=== PATIENT | male | born 1930 | race Caucasian/White ===

== ENCOUNTER 2020-03-20 08:00 | Outpatient (CLI) | payer MEDICARE, OTHER ==
[2020-03-20 17:54] LABS: BASOPHILS % (AUTO) 0.3 %; EOSINOPHILS # (AUTO) 0.2 10^3/uL (0.0-0.7); EOSINOPHILS % (AUTO) 2.5 %; HGB - HEMOGLOBIN 14.4 g/dL (14.0-18.0); LYMPHOCYTES # (AUTO) 1.4 10^3/uL (1.5-3.5); LYMPHOCYTES % (AUTO) 24.1 %; MEAN CORPUSCULAR HEMOGLOBIN 31.9 pg (27.0-31.0); MEAN CORPUSCULAR HGB CONC 31.5 g/dL (32.0-36.0); MEAN CORPUSCULAR VOLUME 101.1 fL (80.0-94.0); MEAN PLATELET VOLUME 11.8 fL (7.4-11.4); MONOCYTES # (AUTO) 0.6 10^3/uL (0.0-1.0); MONOCYTES % (AUTO) 9.8 %; NEUTROPHILS # (AUTO) 3.7 10^3/uL (1.5-6.6); NEUTROPHILS % (AUTO) 63.1 %; PLT - PLATELET COUNT 146 10^3/uL (130-450); RED BLOOD COUNT 4.52 10^6/uL (4.70-6.10); RED CELL DISTRIBUTION WIDTH 15.4 % (12.0-15.0); WHITE BLOOD COUNT 5.9 x10^3/uL (4.8-10.8)
[2020-03-20 18:06] LABS: ALBUMIN/GLOBULIN RATIO 1.6 (1.0-2.2); CALCIUM 10.3 mg/dL (8.5-10.3); CREATININE 1.2 mg/dL (0.6-1.2); TOTAL PROTEIN 6.5 g/dL (6.7-8.2)
== END 2020-03-20 23:59 | disposition home or self-care (01) ==
LOC: LAB.N 08:00
PROVIDERS: ATTEND Family Medicine
DX: K59.00 Constipation, unspecified (principal); R10.9 Unspecified abdominal pain
CPT/HCPCS: 36415; 80053; 82150; 83690; 85025

== ENCOUNTER 2020-05-08 16:45 | Outpatient (CLI) | payer MEDICARE | END 2020-05-08 16:46 | disposition critical access hospital (66) | LOC: EMS 16:45 | PROVIDERS: ATTEND Surgery | DX: R47.81 Slurred speech (principal); R29.810 Facial weakness; R29.898 Other symptoms and signs involving the musculoskeletal system | CPT/HCPCS: A0425; A0427 ==

== ENCOUNTER 2020-05-08 17:00 | Emergency (ER) | payer MEDICARE, OTHER ==
--- NOTE | 2020-05-08 17:08 | ED Physician Documentation ---
PD HPI FOCAL NEURO - Stated complaint Stated Complaint: CODE STROKE - History obtained from History obtained from: EMS - Additional information Additional information: 89-year-old gentleman brought in by ambulance with strokelike symptoms starting at 1630 today with predominantly left-sided deficits. No injury. He does complain of headache reportedly. Prehospital blood sugar was in the 130s. It was reported he is on a blood thinner but were not sure which one. Is limited because of aphasia. Review of Systems Unable to obtain: AMS PD PAST MEDICAL HISTORY - Past Medical History Past Medical History: Yes Cardiovascular: Hypertension - Present Medications Home Medications: Ambulatory Orders Medication Instructions Recorded Confirmed Dicyclomine [Bentyl] 10 mg PO ONCE 05/08/20 05/08/20 Famotidine [Acid-Pep] 20 mg PO DAILY 05/08/20 05/08/20 Furosemide [Lasix] 20 mg PO DAILY 05/08/20 05/08/20 Furosemide [Lasix] 40 mg PO DAILY 05/08/20 05/08/20 Losartan [Cozaar] 50 mg PO DAILY 05/08/20 05/08/20 PARoxetine [Paxil] 10 mg PO DAILY 05/08/20 05/08/20 Potassium Chloride [Klor-Con] 20 meq PO DAILY 05/08/20 05/08/20 Simvastatin [Zocor] 20 mg PO DAILY 05/08/20 05/08/20 Tamsulosin [Flomax] 0.4 mg PO DAILY 05/08/20 05/08/20 allopurinoL [Zyloprim] 100 mg PO DAILY 05/08/20 05/08/20 clonazePAM [Clonazepam] 0.5 mg PO BID 05/08/20 05/08/20 - Allergies Allergies/Adverse Reactions: Allergies Allergy/AdvReac Type Severity Reaction Status Date / Time Penicillins Allergy Rash Verified 05/08/20 18:26 PD ED PE NORMAL - Vitals Vital signs reviewed: Yes - General General: Other (Is alert and follows simple commands. He mumbles yes to some questions but cannot really say anything else clearly.) - Neck Neck: Supple, no meningeal sign, No bony TTP - Cardiac Cardiac: RRR, No murmur - Respiratory Respiratory: No respiratory distress, Clear bilaterally - Abdomen Abdomen: Non tender - Back Back: No CVA TTP, No spinal TTP - Derm Derm: Normal color, Warm and dry - Extremities Extremities: No edema, No calf tenderness / cord NIHSS - Time Time: 17:04 - Level of Consciousness Level of consciousness: (0) Alert, Keenly responsive LOC Questions: (2) Answers neither correct LOC Commands: (0) Performs both correctly - Gaze Best Gaze: (1) Partial gaze palsy - Visual Visual: (0) No loss - Facial Palsy Facial Palsy: (2) Partial paralysis (left) - Motor Arms (both separate) Motor Arm (right): (0) No drift Motor Arm (left): (4) No movement - Motor Legs (both separate) Motor Leg (right): (0) No drift Motor Leg (left): (2) Some effort against gravity - Limb Ataxia Limb Ataxia: (0) Absent - Sensory Sensory: (2) Pywzzr-go-kjpqi loss - Best Language Best Language: (2) Severe aphasia - Dysarthria Dysarthria: (2) Severe dysarthria - Extinction and Inattention (formally neg Extinction and inattention: (2) Profound dominga-inattention or extinction to more than one modality - Total Score/Results Total Score/Result: 19 Results - Vitals Vitals: Vital Signs - 24 hr 05/08/20 05/08/20 05/08/20 17:30 17:35 17:40 Temperature Heart Rate 70 70 70 Respiratory 16 16 16 Rate Blood Pressure 143/80 H 143/83 H 149/84 H O2 Saturation 99 99 99 05/08/20 05/08/20 05/08/20 17:45 17:50 18:10 Temperature 36.3 C L Heart Rate 72 70 75 Respiratory 14 16 16 Rate Blood Pressure 158/79 H 159/68 H 145/74 H O2 Saturation 100 100 15 L 05/08/20 05/08/20 05/08/20 18:20 18:30 18:45 Temperature Heart Rate 70 78 79 Respiratory 16 16 14 Rate Blood Pressure 142/78 H 149/78 H 140/69 H O2 Saturation 100 99 100 05/08/20 19:00 Temperature Heart Rate 72 Respiratory 14 Rate Blood Pressure 137/80 H O2 Saturation 100 Oxygen O2 Source Room air - EKG (time done) 1742 Rate: Rate (enter#) (70) Rhythm: Paced Computer interpretation: Agree with computer - Labs Labs: Laboratory Tests 05/08/20 05/08/20 05/08/20 17:35 17:43 17:43 WBC 5.0 RBC 3.97 L Hgb 13.0 L Hct 40.2 L MCV 101.3 H MCH 32.7 H MCHC 32.3 RDW 14.4 Plt Count 119 L MPV 11.3 Neut # (Auto) 3.4 Lymph # (Auto) 1.0 L [place] # (Auto) 0.5 Eos # (Auto) 0.1 Baso # (Auto) 0.0 Absolute Nucleated RBC 0.00 Nucleated RBC % 0.0 PT 12.3 INR 1.1 Sodium Potassium Chloride Carbon Dioxide Anion Gap BUN Creatinine Estimated GFR (MDRD) Glucose Calcium Total Bilirubin AST ALT Alkaline Phosphatase Total Protein Albumin Globulin Albumin/Globulin Ratio Nasal Adenovirus (PCR) NOT DETECTED Nasal B. parapertussis DNA (PCR) NOT DETECTED Nasal Coronavir 229E PCR NOT DETECTED Nasal Coronavir HKU1 PCR NOT DETECTED Nasal Coronavir NL63 PCR NOT DETECTED Nasal Coronavir OC43 PCR NOT DETECTED Nasal Enterovir/Rhinovir PCR NOT DETECTED Nasal Influenza B PCR NOT DETECTED Nasal Influenza A PCR NOT DETECTED Nasal Parainfluen 1 PCR NOT DETECTED Nasal Parainfluen 2 PCR NOT DETECTED Nasal Parainfluen 3 PCR NOT DETECTED Nasal Parainfluen 4 PCR NOT DETECTED Nasal RSV (PCR) NOT DETECTED Nasal B.pertussis DNA PCR NOT DETECTED Nasal C.pneumoniae (PCR) NOT DETECTED Mitchell Human Metapneumo PCR NOT DETECTED Nasal M.pneumoniae (PCR) NOT DETECTED Nasal SARS-CoV-2 (PCR) NOT DETECTED 05/08/20 17:43 WBC RBC Hgb Hct MCV MCH MCHC RDW Plt Count MPV Neut # (Auto) Lymph # (Auto) [place] # (Auto) Eos # (Auto) Baso # (Auto) Absolute Nucleated RBC Nucleated RBC % PT INR Sodium 136 Potassium 4.0 Chloride 100 L Carbon Dioxide 22 Anion Gap 14.0 H BUN 30 H Creatinine 1.3 H Estimated GFR (MDRD) 52 L Glucose 104 H Calcium 9.4 Total Bilirubin 0.6 AST 23 ALT 16 Alkaline Phosphatase 70 Total Protein 6.1 L Albumin 3.6 Globulin 2.5 Albumin/Globulin Ratio 1.4 Nasal Adenovirus (PCR) Nasal B. parapertussis DNA (PCR) Nasal Coronavir 229E PCR Nasal Coronavir HKU1 PCR Nasal Coronavir NL63 PCR Nasal Coronavir OC43 PCR Nasal Enterovir/Rhinovir PCR Nasal Influenza B PCR Nasal Influenza A PCR Nasal Parainfluen 1 PCR Nasal Parainfluen 2 PCR Nasal Parainfluen 3 PCR Nasal Parainfluen 4 PCR Nasal RSV (PCR) Nasal B.pertussis DNA PCR Nasal C.pneumoniae (PCR) Mitchell Human Metapneumo PCR Nasal M.pneumoniae (PCR) Nasal SARS-CoV-2 (PCR) - Rads (name of study) CT Head Radiology: EMP read contemporaneously (NAD, No ICH) CTA Head Radiology: EMP read contemporaneously (No significant acute intracranial abnormality. Dense calcifications of both internal carotids) CTA Neck Radiology: EMP read contemporaneously (Inital poor bolus timing, atherosclerotic irregularity and calcification of both bifurcations with 70 to 80% narrowing of the right proximal internal carotid and 60 to 70% of the left proximal internal carotid. There are also stenoses of the vertebral origins, subtotal on the right and at least 50%) PD MEDICAL DECISION MAKING - ED course ED course: His son Rommel showed me his med list. There is no blood thinner on there. 89-year-old gentleman with what seems like a devastating right MCA territory stroke, very early in the time course. He was evaluated by telestroke neurology, Dr. Jordan and we both agree that he is an appropriate TPA candidate without obvious contraindications. The patient's son Rommel was consented for TPA after discussion of the risks and benefits, risks including , intracranial hemorrhage and bleeding. He signed consent for TPA. Bolus of TPA went in at 1753. Subsequently was accepted to [facility] ICU by Dr. Beth Bose at 6:46 PM and cobras were completed. On serial exams after the administration of TPA he had significant improvement of his left-sided deficits. - Critical Care Time(min): 45 Time Includes: Direct patient care, Review records, Reassess patient, Document care, Coordinate care, Medical consult, Family consult for tx dec Data interpretation: Labs, Pulse ox Procedures included in critical care time: Peripheral IV Procedures excluded from critical care time: EKG Departure - Departure Disposition: 02 Transfer Acute Care Hosp Clinical Impression: Cerebrovascular accident (CVA) Condition: Critical Discharge Date/Time: 05/08/20 19:27
[2020-05-08] MEDS ORDERED: WATER FOR INJECTION STERILE IV STA ×2 (17:29→17:33)
[2020-05-08] MEDS ORDERED: ALTEPLASE IV STA ×2 (17:29→17:33)
[2020-05-08] MEDS ORDERED: ALTEPLASE 7.6 MG in WATER FOR INJECTION,STERILE 7.6 ML IV STA (17:34)
--- NOTE | 2020-05-08 17:41 | CT Report ---
PROCEDURE: Head W/O Stroke Protocol INDICATIONS: stroke like symptoms TECHNIQUE: Noncontrast 4.5 mm thick angled axial sections acquired from the foramen magnum to the vertex, with c oronal reformats. For radiation dose reduction, the following was used: automated exposure control, adjustment of mA and/or kV according to patient size. COMPARISON: FINDINGS: Image quality: Motion artifact is noted. CSF spaces: Basal cisterns are patent. Mild low-density subdural hygromas can be seen. Ventricles a re normal in size and shape. Brain: No midline shift. No intracranial masses or hemorrhage. Brain parenchymal volume loss is see n. Chronic small vessel ischemic changes are seen. Horner-white matter interface is normal. Skull and face: Calvarium and visualized facial bones are intact, without suspicious lesions. Sinuses: Visualized sinuses and mastoids are clear. IMPRESSION: No intracranial hemorrhage is seen. No significant intracranial abnormality is seen. Age-appropriate brain parenchymal volume loss and chronic small vessel ischemic change can be seen. Mild low-density, chronic appearing bilateral subdural hygromas can be seen. Note: Case discussed by telephone with Dr. Johnson at 4:38 PM [place] time on 05/08/2020. This study fulfills neurological imaging criteria for inclusion or exclusion of acute stroke therapie s based on available published neurological imaging guidelines. Reviewed by: Armani Parnell MD on 05/08/2020 4:40 PM [place] Approved by: Armani Parnell MD on 05/08/2020 4:40 PM [place] Station ID: [id number]
[2020-05-08 18:05] LABS: BASOPHILS % (AUTO) 0.4 %; EOSINOPHILS # (AUTO) 0.1 10^3/uL (0.0-0.7); EOSINOPHILS % (AUTO) 1.4 %; LYMPHOCYTES % (AUTO) 19.3 %; MEAN CORPUSCULAR HEMOGLOBIN 32.7 pg (27.0-31.0); MEAN CORPUSCULAR HGB CONC 32.3 g/dL (32.0-36.0); MEAN CORPUSCULAR VOLUME 101.3 fL (80.0-94.0); MEAN PLATELET VOLUME 11.3 fL (7.4-11.4); MONOCYTES # (AUTO) 0.5 10^3/uL (0.0-1.0); MONOCYTES % (AUTO) 10.6 %; NEUTROPHILS # (AUTO) 3.4 10^3/uL (1.5-6.6); NEUTROPHILS % (AUTO) 67.9 %; PLT - PLATELET COUNT 119 10^3/uL (130-450); RED BLOOD COUNT 3.97 10^6/uL (4.70-6.10); RED CELL DISTRIBUTION WIDTH 14.4 % (12.0-15.0)
[2020-05-08] MEDS ORDERED: IOVERSOL 320 100 ML VIAL IVP ONE (18:07)
[2020-05-08 18:11] LABS: INR 1.1 (0.8-1.2); PT - PROTHROMBIN TIME 12.3 secs (9.9-12.6)
--- NOTE | 2020-05-08 18:11 | CT Report ---
PROCEDURE: ANGIO HEAD W/WO INDICATIONS: L side defecits CONTRAST: IV CONTRAST: Optiray 320 ml: 80 PO CONTRAST: *NO PO CONTRAST TECHNIQUE: After the administration of intravenous contrast, 1 mm thick sections acquired through the [place]. Postcontrast 4.5 mm thick sections then re-acquired from the foramen magnum to the vertex. 3-dimensional oijpcdo-qkoaferjn-fcyzbxqvme (MIP) and/or volume rendering reformats were acquired of the central intracranial vasculature. For radiation dose reduction, the following was used: automat ed exposure control, adjustment of mA and/or kV according to patient size. COMPARISON: Correlation is made with the accompanying noncontrast head CT as well as the accompanyin g CT neck angiogram, 05/08/2020. FINDINGS: Image quality: Excellent. Anterior circulation: Intracranial internal carotid arteries demonstrate generalized atherosclerotic calcification and irregularity, with approximately 50% narrowing on each side. The flow within the p aired anterior cerebral arteries is normal and symmetric. The flow within the middle cerebral arteri es is normal and symmetric. The anterior communicating artery is seen. No aneurysms are seen. Posterior circulation: Visualized portions of the vertebral arteries demonstrate normal caliber, and join to form a normal appearing basilar artery. Flow within the posterior cerebral arteries is norm al and symmetric. No aneurysms are seen. CSF spaces: Ventricles are normal in size and shape. Basal cisterns are patent. Mild, chronic appe aring subdural hygromas can be seen. Brain: No midline shift. No intracranial bleeds or masses. Brain parenchymal volume loss and chroni c small vessel ischemic changes are seen. Horner-white matter interface appears intact. Skull and face: Calvarium and facial bones appear intact, without suspicious lesions. Sinuses: Visualized sinuses and mastoids are clear. IMPRESSION: No significant intracranial arterial abnormality is seen. Dense atherosclerotic calcification and irregularity can be seen involving the intracranial internal carotid arteries, with approximately 50% narrowing seen on each side. No masses or abnormal enhancement can be seen. Reviewed by: Armani Parnell MD on 05/08/2020 5:10 PM [place] Approved by: Armani Parnell MD on 05/08/2020 5:10 PM [facility] Station ID: [id number]
[2020-05-08 18:16] LABS: ALBUMIN 3.6 g/dL (3.2-5.5); ALBUMIN/GLOBULIN RATIO 1.4 (1.0-2.2); BILIRUBIN,TOTAL 0.6 mg/dL (0.2-1.0); CALCIUM 9.4 mg/dL (8.5-10.3); CREATININE 1.3 mg/dL (0.6-1.2); TOTAL PROTEIN 6.1 g/dL (6.7-8.2)
--- NOTE | 2020-05-08 18:18 | CT Report ---
PROCEDURE: ANGIO NECK W INDICATIONS: L side defecits CONTRAST: IV CONTRAST: Optiray 320 ml: 80 PO CONTRAST: *NO PO CONTRAST TECHNIQUE: Because of a poor initial bolus, this patient was injected a second time. After the administration of intravenous contrast, 1.5 mm axial sections acquired from the aortic arch to the [place]. Coronal 3-D maximum intensity projection (MIP) and/or volume rendering ref ormats were then performed. For radiation dose reduction, the following was used: automated exposur e control, adjustment of mA and/or kV according to patient size. COMPARISON: Correlation is made with the accompanying head CT and CT angiogram, 05/08/2020 FINDINGS: Image quality: Excellent. Carotid system: The great vessels demonstrate a conventional anatomy as they arise from the aortic a rch. The origins of the common carotid arteries appear patent. The common carotid arteries demonstr ate normal calibers and courses. The bifurcation regions demonstrate atherosclerotic irregularity an d calcification. There is 70-80% narrowing seen involving the right proximal internal carotid artery. There is 60-70% narrowing seen involving the left proximal internal carotid artery. The more distal internal carotid arteries demonstrate normal course and caliber. Posterior circulation: The origin of the vertebral right vertebral artery demonstrates dense calcifi cation and subtotal narrowing. There is at least 50% narrowing seen involving the origin of the left vertebral artery origin. The right vertebral artery demonstrates areas at least 90% narrowing at the C3-C4 level, as on series 25 image 56 and on series 23 image 156. The left vertebral artery is domin ant to the right. No significant left distal vertebral artery narrowing can be seen. They join to for m a normal appearing basilar artery. Soft tissues: Visualized neck soft tissues demonstrate no suspicious abnormalities. The thyroid gla nd is normal in size. Bones: No suspicious bony lesions. Visualized cervical spine appears normally aligned. Relatively prominent cervical spine degenerative changes are seen. IMPRESSION: Atherosclerotic irregularity and calcification can be seen involving the carotid bifurcations, with 7 0-80% narrowing seen involving the right proximal internal carotid artery and 60-70% narrowing of the left proximal internal carotid artery. There are stenoses seen of the vertebral artery origins, with a subtotal stenosis seen on the right a nd at least 50% narrowing seen on the left. The right vertebral artery demonstrates prominent narrowing at the C3-C4 level, at least 90%. Relatively prominent cervical spine degenerative changes are noted. (Secondary to a poor initial bolus, this patient needed to be injected a second time.) The estimate of stenosis included in the report of the imaging study was calculated using the NASCET method Reviewed by: Armani Parnell MD on 05/08/2020 5:17 PM [facility] Approved by: Armani Parnell MD on 05/08/2020 5:17 PM [facility] Station ID: [id number]
[2020-05-08 19:04] VITALS: BP 137/80
[2020-05-08 19:32] LABS: C. PNEUMONIAE- RESP PCR PANEL NOT DETECTED
== END 2020-05-08 19:27 | disposition short-term general hospital (02) ==
LOC: EDSEX → EDUNIT# → ED 17:00
DX: I63.9 Cerebral infarction, unspecified (principal); R47.01 Aphasia; R40.4 Transient alteration of awareness; I10 Essential (primary) hypertension; R29.719 NIHSS score 19; Z20.822 Contact with and (suspected) exposure to COVID-19
CPT/HCPCS: 36415; 37195; 70450; 70496; 70498; 80053; 85025; 85610; 87631; 93005; 96365; 99285; 99291; J2997; Q9967; 0202U

== ENCOUNTER 2020-08-30 09:34 | Outpatient (CLI) | payer MEDICARE | END 2020-08-30 09:35 | disposition critical access hospital (66) | LOC: EMS 09:34 | DX: R06.2 Wheezing (principal); R41.0 Disorientation, unspecified | CPT/HCPCS: A0425; A0427 ==

== ENCOUNTER 2020-08-30 09:50 | Emergency (ER) | payer MEDICARE ==
[2020-08-30 10:11] VITALS: BP 173/88
--- NOTE | 2020-08-30 10:31 | XRAY Report ---
PROCEDURE: Chest 1 View X-Ray INDICATIONS: wheezing TECHNIQUE: One view of the chest was acquired. COMPARISON: None FINDINGS: Surgical changes and devices: Left chest wall cardiac device lead is seen in the region of right vent ricle. Median sternotomy wires are seen. Lungs and pleura: There is mild pulmonary vascular congestion. No significant pleural effusion. No pn eumothorax. Increased bronchovascular markings in bilateral hilar region are seen with mild bronchial wall thickening. Mediastinum: Mildly tortuous thoracic aorta with aortic arch calcifications are seen. Heart size is e nlarged. Bones and chest wall: No suspicious bony lesions. Overlying soft tissues appear unremarkable. IMPRESSION: Suggestion of mild reactive airway disease. No definite focal infiltrate. No pleural effusion or thor ax. Reviewed by: Ezequiel Biswas MD on 08/30/2020 10:30 AM PDT Approved by: Ezequiel Biswas MD on 08/30/2020 10:30 AM PDT Station ID: [id number]
--- NOTE | 2020-08-30 11:04 | ED Physician Documentation ---
History of Present Illness - Stated complaint Stated Complaint: SOA - Chief complaint Chief Complaint: General - History obtained from History obtained from: Family (son) - Additonal information Additional information: 89-year-old man with history of CVA 2 months ago, A. fib on Coumadin, CHF, DNR/DNI with comfort measures only, primary Dr. García, presents with progressively worsening confusion and increasingly frequent falls since January 2020 when his . Patient has had at least 3 falls this week, the most recent occurring today in front of his son's girlfriend who was concerned enough to call EMS. Review of Systems Unable to obtain: Dementia PD PAST MEDICAL HISTORY - Past Medical History Past Medical History: Yes Cardiovascular: Congestive heart failure, Hypertension, Atrial fibrillation Neuro: CVA : Other Musculoskeletal: Gout Derm: Other Other Past Medical History: prostate CA, skin cancer - Past Surgical History Past Surgical History: Yes General: Cholecystectomy Cardiovascular: Pacemaker - Present Medications Home Medications: Ambulatory Orders Medication Instructions Recorded Confirmed Dicyclomine [Bentyl] 10 mg PO ONCE 05/08/20 05/08/20 Famotidine [Acid-Pep] 40 mg PO DAILY 05/08/20 05/08/20 Furosemide [Lasix] 40 mg PO DAILY 05/08/20 05/08/20 PARoxetine [Paxil] 10 mg PO BID 05/08/20 05/08/20 Tamsulosin [Flomax] 0.4 mg PO DAILY 05/08/20 05/08/20 allopurinoL [Zyloprim] 100 mg PO DAILY 05/08/20 05/08/20 clonazePAM [Clonazepam] 0.5 mg PO BID 05/08/20 05/08/20 Atorvastatin Calcium [Lipitor] 80 mg DAILY 08/30/20 08/30/20 Azithromycin [Zithromax Tri-Miguel] 500 mg PO QDAC 5 Days #6 tablet 08/30/20 Metoprolol Tartrate [Lopressor] 12.5 mg PO DAILY 08/30/20 08/30/20 Warfarin [Coumadin] 1.5 mg DAILY 08/30/20 08/30/20 - Allergies Allergies/Adverse Reactions: Allergies Allergy/AdvReac Type Severity Reaction Status Date / Time Penicillins Allergy Rash Verified 08/30/20 10:09 - Social History Does the pt smoke?: No Smoking Status: Never smoker Does the pt drink ETOH?: Yes Does the pt have substance abuse?: No PD ED PE NORMAL - Vitals Vital signs reviewed: Yes - General General: No acute distress, Other (alert and at baseline) - HEENT HEENT: Atraumatic, PERRL, EOMI - Neck Neck: Supple, no meningeal sign - Cardiac Cardiac: Other (Regular rate, irregular rhythm) - Respiratory Respiratory: No respiratory distress, Clear bilaterally - Abdomen Abdomen: Non tender, Non distended - Male Male : Deferred - Rectal Rectal: Deferred - Back Back: No CVA TTP - Derm Derm: Normal color - Extremities Extremities: No deformity - Neuro Neuro: Other (alert at baseline) - Psych Psych: Other (dementia at baseline) Results - Vitals Vitals: Vital Signs - 24 hr 08/30/20 09:51 Temperature 36.2 C L Heart Rate 70 Respiratory 22 Rate Blood Pressure 173/88 H O2 Saturation 100 Oxygen O2 Source Room air PD MEDICAL DECISION MAKING - ED course ED course: 89-year-old man, DNR/DNI comfort measures only, presents with progressive increased frequency of falls and worsening dementia. Past several months. Discussed goals of care with the patient's son and confirmed his care should be oriented towards comfort therefore I am holding off on bloodwork/further interventions today. He is interested in enrolling him in [facility]. They plan to f/u outpatient. return precautions discussed. Departure - Departure Disposition: 01 Home, Self Care Clinical Impression: Pneumonia Condition: Stable Instructions: ED Pneumonia Adult Prescriptions: Azithromycin [Zithromax Tri-Miguel] 500 mg PO QDAC 5 Days #6 tablet Comments: Your father was seen in the emergency department for increasing frequency of falls and dementia. He also has been coughing more than usual and short of breath. the chest xray didn't show obvious pneumonia, but given his clinical appearance I am prescribing 5 days of antibiotics. Please follow-up with your primary doctor this week for possible home health versus [facility] placement. Return to the emergency department if he experiences any new or worsening symptoms or if you have other concerns. Discharge Date/Time: 08/30/20 11:30
== END 2020-08-30 11:30 | disposition home or self-care (01) ==
LOC: EDUNIT# → ED 09:50
DX: J18.9 Pneumonia, unspecified organism (principal); F03.90 Unspecified dementia, unspecified severity, without behavioral disturbance, psychotic disturbance, mood disturbance, and anxiety; R29.6 Repeated falls; I11.0 Hypertensive heart disease with heart failure; I50.9 Heart failure, unspecified; I48.91 Unspecified atrial fibrillation; Z79.01 Long term (current) use of anticoagulants; Z86.73 Personal history of transient ischemic attack (TIA), and cerebral infarction without residual deficits; Z95.0 Presence of cardiac pacemaker; Z66 Do not resuscitate
CPT/HCPCS: 93005; 99281; 99283

== ENCOUNTER 2020-09-30 10:25 | Outpatient (CLI) | payer MEDICARE | END 2020-09-30 10:26 | disposition critical access hospital (66) | LOC: EMS 10:25 | DX: S41.112A Laceration without foreign body of left upper arm, initial encounter (principal); W19.XXXA Unspecified fall, initial encounter; Y92.002 Bathroom of unspecified non-institutional (private) residence as the place of occurrence of the external cause | CPT/HCPCS: A0425; A0429 ==

== ENCOUNTER 2020-09-30 10:46 | Emergency (ER) | payer MEDICARE ==
--- NOTE | 2020-09-30 11:20 | ED Physician Documentation ---
PD HPI Fall - Stated complaint Stated Complaint: FALL - Chief complaint Chief Complaint: Trauma Ext - History obtained from History obtained from: Patient, Family - History of Present Illness Mechanism of injury: Tripped (he says his slippers slid on rug/floor and he fell with his walker. Lac to left forearm. Does not believe he struck head. No headache. But is on coumadin for prior CVA. has been having increasing difficulty with balance and needs assistance. Family trying to be there all the time, but limited (work)), Lost balance Where injury occurred: Home Timing - onset: Today, Other (he also fell 3 days ago and struck left anterolateral chest, and that is still very painful.) Injury(ies) location: Chest, Left Uppper Extremity (skin peel/laceration left forearm.), Left Lower Extremity (pain in left posterior hip/pelvis area the past 3 days.) Associated symptoms: No: LOC, AMS, Weakness, Paresthesias Symptoms improve with: Rest Worsens with: Movement Contributing factors: Anticoagulated. No: Intoxicated Similar symptoms before: No diagnosis (increased balance problems and general weakness over the past few months. Family having difficulty being there continually (they say the fall 3 days ago was during night when patient got up and did not call them for help as he is supposed to do).) Review of Systems Constitutional: denies: Fever, Chills Nose: denies: Rhinorrhea / runny nose, Congestion Throat: denies: Sore throat Cardiac: reports: Chest pain / pressure Respiratory: denies: Cough GI: denies: Abdominal Pain, Nausea, Vomiting Neurologic: reports: Generalized weakness. denies: Focal weakness, Numbness, Altered mental status, Headache PD PAST MEDICAL HISTORY - Past Medical History Cardiovascular: Congestive heart failure, Hypertension, Atrial fibrillation Neuro: CVA : Other Musculoskeletal: Gout Derm: Other - Past Surgical History Past Surgical History: Yes General: Cholecystectomy Cardiovascular: Pacemaker - Present Medications Home Medications: Ambulatory Orders Medication Instructions Recorded Confirmed Dicyclomine [Bentyl] 10 mg PO ONCE 05/08/20 09/30/20 Famotidine [Acid-Pep] 40 mg PO DAILY 05/08/20 09/30/20 Furosemide [Lasix] 40 mg PO DAILY 05/08/20 09/30/20 PARoxetine [Paxil] 10 mg PO BID 05/08/20 09/30/20 Tamsulosin [Flomax] 0.4 mg PO DAILY 05/08/20 09/30/20 allopurinoL [Zyloprim] 100 mg PO DAILY 05/08/20 09/30/20 clonazePAM [Clonazepam] 0.5 mg PO BID 05/08/20 09/30/20 Atorvastatin Calcium [Lipitor] 80 mg DAILY 08/30/20 09/30/20 Metoprolol Tartrate [Lopressor] 12.5 mg PO DAILY 08/30/20 09/30/20 Warfarin [Coumadin] 1.5 mg PO DAILY 08/30/20 09/30/20 - Allergies Allergies/Adverse Reactions: Allergies Allergy/AdvReac Type Severity Reaction Status Date / Time Penicillins Allergy Rash Verified 09/30/20 11:31 - Social History Does the pt smoke?: No Smoking Status: Never smoker Does the pt drink ETOH?: Yes Does the pt have substance abuse?: No PD ED PE NORMAL - Vitals Vital signs reviewed: Yes - General General: Alert and oriented X 3, No acute distress, Well developed/nourished - HEENT HEENT: Atraumatic - Neck Neck: Supple, no meningeal sign, No bony TTP, No adenopathy - Cardiac Cardiac: RRR, No murmur - Respiratory Respiratory: Clear bilaterally, Other (left anterolateral chest wall tenderness without crepitance nor deformity. ) - Abdomen Abdomen: Soft, Non tender - Derm Derm: Normal color, Warm and dry - Extremities Extremities: Other (left forearm with partial thickness skin peel. Some loose skin. FROM of the arm and elbow without bony tenderness. ) - Neuro Neuro: Alert and oriented X 3, No motor deficit, No sensory deficit, Normal speech Results - Vitals Vitals: Vital Signs - 24 hr 09/30/20 09/30/20 09/30/20 10:46 11:00 11:30 Temperature 97.9 C H Heart Rate 71 74 74 Respiratory 16 16 18 Rate Blood Pressure 154/78 H 160/81 H 165/83 H O2 Saturation 96 95 96 09/30/20 12:00 Temperature Heart Rate 74 Respiratory 19 Rate Blood Pressure 160/83 H O2 Saturation Oxygen O2 Source Room air - Labs Labs: Laboratory Tests 09/30/20 09/30/20 09/30/20 12:15 12:15 12:31 WBC 2.0 L* RBC 3.95 L Hgb 12.5 L Hct 39.2 L MCV 99.2 H MCH 31.6 H MCHC 31.9 L RDW 15.1 H Plt Count 78 L MPV 11.9 H Neut # (Auto) Not Reportable Lymph # (Auto) Not Reportable [place]ley # (Auto) Not Reportable Eos # (Auto) Not Reportable Baso # (Auto) Not Reportable Absolute Nucleated RBC Not Reportable Total Counted 100 Band Neuts % (Manual) 2 Abnorm Lymph % (Manual) 0 Nucleated RBC % Not Reportable Neutrophils # (Manual) 1.2 L Lymphocytes # (Manual) 0.4 L Monocytes # (Manual) 0.3 Eosinophils # (Manual) 0.0 Basophils # (Manual) 0.1 Differential Comment MANUAL DIFFERENTIAL WBC Morphology NORMAL APPEARANCE Platelet Estimate DECREASED (<130,000) Platelet Morphology NORMAL APPEARANCE RBC Morph Micro Appear NORMAL APPEARANCE PT 32.7 H INR 3.1 H Sodium 139 Potassium 3.2 L Chloride 98 L Carbon Dioxide 29 Anion Gap 12.0 BUN 32 H Creatinine 1.3 H Estimated GFR (MDRD) 52 L Glucose 86 Calcium 8.6 - Rads (name of study) head CT Radiology: Prelim report reviewed (no ICH), See rad report chest CT Radiology: Prelim report reviewed (no rib fractures; lungs okay.), See rad report abd/pelvic CT Radiology: Prelim report reviewed (no pelvic fractures), See rad report PD MEDICAL DECISION MAKING - ED course Complexity details: reviewed results, re-evaluated patient (he does not have any fractures. Has had balance problems with falls and needs more continued assistance than family can do due to work/etc. Pt being placed in [facility] tomorrow (previously arranged). SW talked with [facility] to see if could go today, but they are not ready for him.), considered differential, d/w patient ED course: Family requests patient here in hospital until tomorrow when going to [facility]. No admission criteris so would be in ER. Patient did not want to stay here though and so family bringing him home and will try to be awake/available overnight near his room, so can help him when he gets up. Forearm loos skin trimmed. Bandagin by nursing. Departure - Departure Disposition: 01 Home, Self Care Clinical Impression: Balance problem, Anticoagulant long-term use, Forearm laceration Rib contusion Qualifiers: Encounter type: initial encounter Laterality: left Qualified Code(s): S20.212A - Contusion of left front wall of thorax, initial encounter Pelvic contusion Qualifiers: Encounter type: initial encounter Qualified Code(s): S30.0XXA - Contusion of lower back and pelvis, initial encounter Condition: Stable Record reviewed to determine appropriate education?: Yes Instructions: ED Contusion Chest Wall, ED Avulsion Dermal Follow-Up: Radha Galeas ARNP [Credentialed Staff Provider] - Comments: Clean the forearm laceration once or twice daily with soap and water and apply some ointment. Otherwise keep it dressed and protected. The skin will heal and slowly over a couple of weeks. There are no fractures seen on the chest or pelvic CT scans. You will still be sore in those areas from the fall. Use Tylenol 500 mg 4 times a day for pain regularly for the next several days to week and then as needed. Your Coumadin level is 3.1 so I would hold tonight's dose and then continue usual dosing. Follow-up with your primary care regarding further medication changes. Consideration would be whether Coumadin is still appropriate given some decrease in his platelet count. The risk of bleeding increases with this and in the context of falling as well. At this point continue with it but discussed with your primary care. CT scan of the head does not show any signs of bleeding. To [facility] tomorrow as planned. Discharge Date/Time: 09/30/20 14:37
[2020-09-30] MEDS ORDERED: ACETAMINOPHEN 325 MG TABLET PO STA (12:00)
[2020-09-30 12:27] LABS: HCT - HEMATOCRIT 39.2 % (42.0-52.0); HGB - HEMOGLOBIN 12.5 g/dL (14.0-18.0); MEAN CORPUSCULAR HEMOGLOBIN 31.6 pg (27.0-31.0); MEAN CORPUSCULAR HGB CONC 31.9 g/dL (32.0-36.0); MEAN CORPUSCULAR VOLUME 99.2 fL (80.0-94.0); MEAN PLATELET VOLUME 11.9 fL (7.4-11.4); MONOCYTES % (AUTO) 10.5 %; PLT - PLATELET COUNT 78 10^3/uL (130-450); RED BLOOD COUNT 3.95 10^6/uL (4.70-6.10); RED CELL DISTRIBUTION WIDTH 15.1 % (12.0-15.0)
[2020-09-30 12:30] LABS: ABNORMAL LYMPHS % (MANUAL) 0 %
[2020-09-30 12:32] LABS: CALCIUM 8.6 mg/dL (8.5-10.3); CREATININE 1.3 mg/dL (0.6-1.2); POTASSIUM 3.2 mmol/L (3.5-5.0)
[2020-09-30 12:41] LABS: INR 3.1 (0.8-1.2); PT - PROTHROMBIN TIME 32.7 secs (9.9-12.6)
[2020-09-30 12:49] LABS: BAND NEUTROPHILS % (MANUAL) 2 %; BASOPHILS # (MANUAL) 0.1 10^3/uL (0-0.1); BASOPHILS % (MANUAL) 3 %; LYMPHOCYTES # (MANUAL) 0.4 10^3/uL (1.5-3.5); LYMPHOCYTES % (MANUAL) 20 %; MONOCYTES # (MANUAL) 0.3 10^3/uL (0.0-1.0); NEUTROPHILS # (MANUAL) 1.2 10^3/uL (1.5-6.6)
[2020-09-30 12:50] LABS: DIFFERENTIAL COMMENT MANUAL DIFFERENTIAL; PLATELET ESTIMATE, MANUAL DECREASED (<130,000) (NORMAL); PLATELET MORPHOLOGY NORMAL APPEARANCE (NORMAL); RBC MORPHOLOGY (MULTIPLE) NORMAL APPEARANCE (NORMAL); WBC MORPHOLOGY (MULTIPLE) NORMAL APPEARANCE (NORMAL)
--- NOTE | 2020-09-30 12:58 | CT Report ---
PROCEDURE: HEAD WO INDICATIONS: fall, on coumadin; no head pain TECHNIQUE: Noncontrast 4.5 mm thick angled axial sections acquired from the foramen magnum to the vertex. For r adiation dose reduction, the following was used: automated exposure control, adjustment of mA and/or kV according to patient size. COMPARISON: 05/08/2020. FINDINGS: Image quality: Excellent. CSF spaces: Basal cisterns are patent. Small bifrontal low-density subdural hygromas stable compared to prior exam. The ventricles are symmetric in size and shape. Brain: No intracranial bleeds or masses. There is cerebral volume loss for age, with resultant vent ricular and sulcal prominence. There are periventricular and deep white matter chronic small vessel ischemic changes. There is intracranial internal carotid artery and vertebral artery atherosclerosis . Skull and face: Calvarium and visualized facial bones appear intact, without suspicious lesions. Sma ll left occipital scalp contusion. Sinuses: Visualized sinuses and mastoids are clear. IMPRESSION: 1. No acute intracranial disease process. 2. No intracranial hemorrhage. 3. Small chronic bifrontal subdural hygromas stable compared to the prior exam. Reviewed by: Cailin Oshea MD, PhD on 09/30/2020 12:57 PM PDT Approved by: Cailin Oshea MD, PhD on 09/30/2020 12:57 PM PDT Station ID: [id number]
--- NOTE | 2020-09-30 13:10 | CT Report ---
PROCEDURE: Abdomen/Pelvis WO INDICATIONS: pains both hips after fall TECHNIQUE: Noncontrast 5 mm thick sections acquired from the diaphragms to the symphysis. 5 mm coronal and sagi ttal reformats were then performed. For radiation dose reduction, the following was used: automated exposure control, adjustment of mA and/or kV according to patient size. COMPARISON: None. FINDINGS: Image quality: Limited quality visualization due to absence of both oral and intravenous contrast. ABDOMEN: Lung bases: Lung bases are clear except for atelectasis associated with bilateral pleural effusions, right greater than left. There is a calcified granuloma at the right middle lobe near the junction o f the medial and lateral segments.. Heart size is normal. Solid organs: Liver and spleen are normal in size, and the spleen contains several scattered punctat e granulomatous calcifications.. Gallbladder is not well seen Pancreas is normal in contours. No a drenal nodules. Kidneys are normal in size, without hydronephrosis or nephrolithiasis. Renal vascul ar calcifications are present there is a dominant right exophytic renal cyst measuring up to 8.2 cm. A smaller posterior exophytic right cortical cyst measures 3.4 cm. Peritoneum and bowel: Unenhanced bowel loops demonstrate normal wall thickness and caliber. No free fluid or air. Nodes and vessels: No retroperitoneal or mesenteric adenopathy by size criteria. Aorta is at or jus t above the upper limits of normal measuring up to 3.1 cm in maximal axial dimension at the upper abd ominal aorta and 2.9 cm at the middle and lower thirds. And inferior vena cava are normal in caliber. Miscellaneous: No ventral hernias. PELVIS: Genitourinary: Bladder wall thickness is normal. Miscellaneous: No inguinal hernias or adenopathy. Bones: No suspicious bony lesions. No vertebral body compression fractures. IMPRESSION: Quality of visualization of the solid and hollow organs is somewhat limited by absence of both oral a nd intravenous contrast. No definite trauma found. Bilateral pleural effusions are noted, right greater than left, with secondary adjacent atelectasis a t each lower lung posteriorly. No pneumonia found. Note is made of a calcified granuloma within the mid point of the right middle lobe, and also small p unctate granulomatous calcifications are seen at the spleen. No definite active granulomatous disease is found. This study is optimized for trauma evaluation of the abdomen and pelvis but the pelvis and hips are i ncluded in the [id number]. No definite fracture found nor is there evidence of dislocation. No com pression fracture seen. Reviewed by: Rommel Reyes MD on 09/30/2020 1:08 PM PDT Approved by: Rommel Reyes MD on 09/30/2020 1:08 PM PDT Station ID: [id number]
--- NOTE | 2020-09-30 13:22 | CT Report ---
PROCEDURE: CHEST WO INDICATIONS: left anterolat ribs pain after fall TECHNIQUE: Noncontrast 5 mm thick sections acquired from the pulmonary apices to the posterior costophrenic angl es. 7 mm thick coronal and sagittal MIP reformats were then acquired. For radiation dose reduction, the following was used: automated exposure control, adjustment of mA and/or kV according to patient size. COMPARISON: CT abdomen/pelvis same day. Prior chest plain film 08/30/2020. FINDINGS: Image quality: Excellent. Lungs and pleura: No acute air space opacities but there is atelectasis associated with bilateral pl eural effusions, right greater than left. The density of the effusions are not elevated, and therefor e the appearance is considered less likely to be a sequela of trauma than chronic CHF. Pacemaking alexander ds partially visualized.. No pneumothorax. Central and peripheral airways are patent and normal in caliber. Mediastinum: Heart size is normal. No pericardial effusion. No mediastinal adenopathy by size crit eria. Thoracic aorta and central pulmonary arteries are normal in size. Esophagus is normal in sita shubham. No hiatal hernia. Bones and chest wall: No suspicious bony lesions. No vertebral body compression fractures. No axil hao or supraclavicular adenopathy by size criteria. The thyroid is normal in size and there are no incidental findings. Abdomen: Visualized upper abdominal solid organs and bowel loops appear normal in the absence of con trast. IMPRESSION: No trauma found. CT scanning allows more accurate detection of rib fractures, but nuclear medicine elizabeth ne scan can allow detection of rib fractures not visible by CT scanning and could be obtained if clin ically indicated. Presumed cardiogenic slight pulmonary edema and pleural effusions, right greater than left. Reviewed by: Rommel Reyes MD on 09/30/2020 1:21 PM PDT Approved by: Rommel Reyes MD on 09/30/2020 1:21 PM PDT Station ID: [id number]
[2020-09-30 14:11] VITALS: BP 160/83
== END 2020-09-30 14:37 | disposition home or self-care (01) ==
LOC: EDUNIT# → ED 10:46
DX: S51.812A Laceration without foreign body of left forearm, initial encounter (principal); S20.212A Contusion of left front wall of thorax, initial encounter; S30.0XXA Contusion of lower back and pelvis, initial encounter; W01.0XXA Fall on same level from slipping, tripping and stumbling without subsequent striking against object, initial encounter; Y92.009 Unspecified place in unspecified non-institutional (private) residence as the place of occurrence of the external cause; R26.81 Unsteadiness on feet; I48.91 Unspecified atrial fibrillation; Z79.01 Long term (current) use of anticoagulants; Z95.0 Presence of cardiac pacemaker
CPT/HCPCS: 36415; 70450; 71250; 74176; 80048; 85025; 85610; 99282; 99284; A9270

== ENCOUNTER 2021-03-03 11:30 | Outpatient (CLI) | payer MEDICARE | END 2021-03-03 11:31 | disposition critical access hospital (66) | LOC: EMS 11:30 | DX: S01.81XA Laceration without foreign body of other part of head, initial encounter (principal); W19.XXXA Unspecified fall, initial encounter; Y92.192 Bathroom in other specified residential institution as the place of occurrence of the external cause; Z79.01 Long term (current) use of anticoagulants; Z66 Do not resuscitate | CPT/HCPCS: A0425; A0429 ==

== ENCOUNTER 2021-03-03 11:48 | Emergency (ER) | payer MEDICARE ==
[2021-03-03 11:58] VITALS: BP 160/83
--- NOTE | 2021-03-03 12:01 | ED Physician Documentation ---
PD HPI HEAD INJURY - Stated complaint Stated Complaint: GLF - Chief complaint Chief Complaint: Trauma Hd/Nk - History obtained from History obtained from: Patient, Family, EMS - Additional information Additional information: 89yo male on coumadin fell today, not using walker. Hit head, unclear LOC. Wound on head. All hx from EMS and son given severe dementia. Review of Systems Unable to obtain: Confused, Dementia PD PAST MEDICAL HISTORY - Past Medical History Cardiovascular: Congestive heart failure, Hypertension, Atrial fibrillation Neuro: CVA : Other Musculoskeletal: Gout Derm: Other - Past Surgical History Past Surgical History: Yes General: Cholecystectomy Cardiovascular: Pacemaker - Present Medications Home Medications: Ambulatory Orders Medication Instructions Recorded Confirmed Dicyclomine [Bentyl] 10 mg PO ONCE 05/08/20 09/30/20 Famotidine [Acid-Pep] 40 mg PO DAILY 05/08/20 09/30/20 Furosemide [Lasix] 40 mg PO DAILY 05/08/20 09/30/20 PARoxetine [Paxil] 10 mg PO BID 05/08/20 09/30/20 Tamsulosin [Flomax] 0.4 mg PO DAILY 05/08/20 09/30/20 allopurinoL [Zyloprim] 100 mg PO DAILY 05/08/20 09/30/20 clonazePAM [Clonazepam] 0.5 mg PO BID 05/08/20 09/30/20 Atorvastatin Calcium [Lipitor] 80 mg DAILY 08/30/20 09/30/20 Metoprolol Tartrate [Lopressor] 12.5 mg PO DAILY 08/30/20 09/30/20 Warfarin [Coumadin] 1.5 mg PO DAILY 08/30/20 09/30/20 - Allergies Allergies/Adverse Reactions: Allergies Allergy/AdvReac Type Severity Reaction Status Date / Time Penicillins Allergy Rash Verified 03/03/21 11:58 - Social History Does the pt smoke?: No Smoking Status: Never smoker Does the pt drink ETOH?: Yes Does the pt have substance abuse?: No PD ED PE NORMAL - Vitals Vital signs reviewed: Yes - General General: No acute distress, Well developed/nourished, Other (He has had an abrasion/skin tear on the top/left of the head.) - HEENT HEENT: PERRL, EOMI - Neck Neck: Supple, no meningeal sign, No bony TTP - Neuro Eye Opening: Spontaneous Motor: Localizes to Pain Verbal: Confused GCS Score: 13 Results - Vitals Vitals: Vital Signs - 24 hr 03/03/21 11:55 Temperature 36.2 C L Heart Rate 70 Respiratory 16 Rate Blood Pressure 160/83 H O2 Saturation 100 Oxygen O2 Source Room air Procedures - Laceration (location) Scalp Length in cm: 4 Wound type: Superficial Wound preparation: Irrigated copiously NS Skin layer closure: Dermabond PD MEDICAL DECISION MAKING - ED course ED course: I had a long discussion with the son, Rommel, given the goals of care. He was initially brought in as a modified trauma but we discussed testing including but not limited to labs and CT imaging of the head and neck. After consideration he does not want any advanced imaging as he would not act on the results and he was discharged home without further evaluation. Other than physical exam. Discussed with him today to consider hospice, he will discuss with his siblings. Departure - Departure Disposition: 01 Home, Self Care Clinical Impression: Injury of head and neck Qualifiers: Encounter type: initial encounter Qualified Code(s): S09.90XA - Unspecified injury of head, initial encounter Scalp laceration Qualifiers: Encounter type: initial encounter Qualified Code(s): S01.01XA - Laceration without foreign body of scalp, initial encounter Condition: Good Record reviewed to determine appropriate education?: Yes Instructions: ED Laceration Ext Skin Glue Comments: As far as the scalp laceration, soap and water is fine, it was closed with skin glue. No further care is necessary for that. His family decided not to pursue advanced imaging today given goals of care. Return if goals of care change. Discharge Date/Time: 03/03/21 12:49
== END 2021-03-03 12:49 | disposition home or self-care (01) ==
LOC: EDUNIT# → EDSEX → ED 11:48
DX: S01.01XA Laceration without foreign body of scalp, initial encounter (principal); W18.30XA Fall on same level, unspecified, initial encounter; Y92.9 Unspecified place or not applicable; I48.91 Unspecified atrial fibrillation; I11.0 Hypertensive heart disease with heart failure; I50.9 Heart failure, unspecified; Z79.01 Long term (current) use of anticoagulants; Z95.0 Presence of cardiac pacemaker; F03.90 Unspecified dementia, unspecified severity, without behavioral disturbance, psychotic disturbance, mood disturbance, and anxiety
CPT/HCPCS: 12002; 99282; 99283

== ENCOUNTER 2021-03-03 13:07 | Outpatient (CLI) | payer MEDICARE | END 2021-03-03 13:08 | disposition home or self-care (01) | LOC: EMS 13:07 | PROVIDERS: ATTEND Emergency Medicine | DX: F03.90 Unspecified dementia, unspecified severity, without behavioral disturbance, psychotic disturbance, mood disturbance, and anxiety (principal); R41.0 Disorientation, unspecified | CPT/HCPCS: A0425; A0428 ==

== ENCOUNTER 2021-08-26 13:01 | Outpatient (CLI) | payer MEDICARE | END 2021-08-26 13:02 | disposition critical access hospital (66) | LOC: EMS 13:01 | DX: S01.01XA Laceration without foreign body of scalp, initial encounter (principal); W19.XXXA Unspecified fall, initial encounter; Y92.199 Unspecified place in other specified residential institution as the place of occurrence of the external cause | CPT/HCPCS: A0425; A0429 ==

== ENCOUNTER 2021-08-26 13:03 | Emergency (ER) | payer MEDICARE ==
--- NOTE | 2021-08-26 13:08 | ED Physician Documentation ---
PD HPI HEAD INJURY - Stated complaint Stated Complaint: GLF - History obtained from History obtained from: EMS - Additional information Additional information: 89-year-old gentleman with severe and progressive dementia had a reported fall at a memory care unit today. It was unwitnessed. He clearly hit the back of his head. Patient is unable to give any history as he is nonverbal. Review of Systems Unable to obtain: Dementia PD PAST MEDICAL HISTORY - Past Medical History Cardiovascular: Congestive heart failure, Hypertension, Atrial fibrillation Neuro: CVA : Other Musculoskeletal: Gout Derm: Other - Past Surgical History Past Surgical History: Yes General: Cholecystectomy Cardiovascular: Pacemaker - Present Medications Home Medications: Ambulatory Orders Medication Instructions Recorded Confirmed Dicyclomine [Bentyl] 10 mg PO ONCE 05/08/20 09/30/20 Famotidine [Acid-Pep] 40 mg PO DAILY 05/08/20 09/30/20 Furosemide [Lasix] 40 mg PO DAILY 05/08/20 09/30/20 PARoxetine [Paxil] 10 mg PO BID 05/08/20 09/30/20 Tamsulosin [Flomax] 0.4 mg PO DAILY 05/08/20 09/30/20 allopurinoL [Zyloprim] 100 mg PO DAILY 05/08/20 09/30/20 clonazePAM [Clonazepam] 0.5 mg PO BID 05/08/20 09/30/20 Atorvastatin Calcium [Lipitor] 80 mg DAILY 08/30/20 09/30/20 Metoprolol Tartrate [Lopressor] 12.5 mg PO DAILY 08/30/20 09/30/20 Warfarin [Coumadin] 1.5 mg PO DAILY 08/30/20 09/30/20 - Allergies Allergies/Adverse Reactions: Allergies Allergy/AdvReac Type Severity Reaction Status Date / Time Penicillins Allergy Rash Verified 08/26/21 13:10 - Social History Does the pt smoke?: No Smoking Status: Never smoker Does the pt drink ETOH?: Yes Does the pt have substance abuse?: No PD ED PE NORMAL - Vitals Vital signs reviewed: Yes - General General: No acute distress (He is nonverbal, does follow simple commands), Other (2 cm laceration on the occiput) - HEENT HEENT: PERRL, EOMI, Other (Dry mucous membranes) - Neck Neck: Supple, no meningeal sign, No bony TTP - Cardiac Cardiac: RRR, No murmur - Respiratory Respiratory: No respiratory distress, Clear bilaterally - Abdomen Abdomen: Normal bowel sounds, Soft, Non tender - Back Back: No CVA TTP, No spinal TTP - Derm Derm: Normal color, Warm and dry - Extremities Extremities: Other (He has healing skin tears to both forearms. The dressing on the right forearm was coming off and this was removed and cleansed and replaced more Steri-Strips.) - Neuro Eye Opening: Spontaneous Motor: Obeys Commands Verbal: Incomprehensible GCS Score: 12 Results - Vitals Vitals: Vital Signs - 24 hr 08/26/21 08/26/21 08/26/21 13:11 13:15 15:15 Temperature 36.5 C 36.5 C 36.5 C Heart Rate 70 70 70 Respiratory 16 16 16 Rate Blood Pressure 160/80 H 160/80 H 140/88 H O2 Saturation 95 95 98 Oxygen O2 Source Room air Procedures - Laceration (location) Occiput Length in cm: 2 Wound type: Linear Anesthesia: LET Wound preparation: Irrigated copiously NS Skin layer closure: [place] (5) Other: Tetanus UTD PD MEDICAL DECISION MAKING - ED course ED course: 89-year-old gentleman with severe dementia brought in as a modified trauma after a fall hitting his head. The last time I saw him for similar issue his son had declined advanced neuroimaging given that he probably would not act on any positive results. I called and left a voicemail after initial evaluation for guidance as to goals of care and appropriate work-up. I was able to get a hold of the [id number], and she agreed that given current goals of care no advanced imaging needs to be obtained as they would not act on the results. Subsequently his son did come to the department, and agreed with the plan of care. Departure - Departure Disposition: 01 Home, Self Care Clinical Impression: Scalp laceration Qualifiers: Encounter type: initial encounter Qualified Code(s): S01.01XA - Laceration without foreign body of scalp, initial encounter Condition: Good Record reviewed to determine appropriate education?: Yes Instructions: ED Laceration Scalp Stitch Or Stap Comments: I spoke with the family and they requested no advanced imaging given current goals of care. The danna should be removed in 7 to 10 days from his occiput, there are 5 of them. Discharge Date/Time: 08/26/21 15:38
[2021-08-26] MEDS ORDERED: LIDOCAINE-EPINEPH-TETRACAINE 3 ML SYRINGE TOP STA (13:18)
[2021-08-26 15:32] VITALS: BP 140/88
== END 2021-08-26 15:38 | disposition home or self-care (01) ==
LOC: EDUNIT# → ED 13:03
DX: S01.01XA Laceration without foreign body of scalp, initial encounter (principal); W19.XXXA Unspecified fall, initial encounter; I10 Essential (primary) hypertension; I48.91 Unspecified atrial fibrillation; Z79.01 Long term (current) use of anticoagulants
CPT/HCPCS: 12001; 99283

== ENCOUNTER 2021-08-26 15:43 | Outpatient (CLI) | payer MEDICARE | END 2021-08-26 15:44 | disposition home or self-care (01) | LOC: EMS 15:43 | PROVIDERS: ATTEND Emergency Medicine | DX: F03.90 Unspecified dementia, unspecified severity, without behavioral disturbance, psychotic disturbance, mood disturbance, and anxiety (principal); R41.0 Disorientation, unspecified | CPT/HCPCS: A0425; A0428 ==

== ENCOUNTER 2021-11-09 09:42 | Outpatient (CLI) | payer MEDICARE | END 2021-11-09 09:43 | disposition short-term general hospital (02) | LOC: EMS 09:42 | DX: R45.6 Violent behavior (principal) | CPT/HCPCS: A0425; A0429 ==

== ENCOUNTER 2022-01-21 10:03 | Inpatient (IN) | payer MEDICARE ==
--- NOTE | 2022-01-21 10:29 | ED Physician Documentation ---
History of Present Illness - Stated complaint Stated Complaint: AMS - Chief complaint Chief Complaint: Neuro - History obtained from History obtained from: Patient, EMS, Caregiver - History of Present Illness Timing: Today - Additonal information Additional information: 89 year-old Serena Richter is a resident of a nearby memory care unit and he has a history of advanced dementia. This morning he was noted by nursing staff to be less responsive than his usual. He did have a fall yesterday. He is noted to be hypoxic today. He did get his COVID booster yesterday. He has vomited yesterday. Review of Systems Unable to obtain: Dementia PD PAST MEDICAL HISTORY - Past Medical History Cardiovascular: Congestive heart failure, Hypertension, Atrial fibrillation Neuro: CVA : Other Musculoskeletal: Gout Derm: Other - Past Surgical History Past Surgical History: Yes General: Cholecystectomy Cardiovascular: Pacemaker - Present Medications Home Medications: Ambulatory Orders Medication Instructions Recorded Confirmed Dicyclomine [Bentyl] 10 mg PO DAILY 05/08/20 01/21/22 Famotidine [Acid-Pep] 40 mg PO DAILY 05/08/20 01/21/22 Furosemide [Lasix] 40 mg PO DAILY 05/08/20 01/21/22 PARoxetine [Paxil] 20 mg PO DAILY 05/08/20 01/21/22 Tamsulosin [Flomax] 0.4 mg PO DAILY 05/08/20 01/21/22 allopurinoL [Zyloprim] 100 mg PO DAILY 05/08/20 01/21/22 clonazePAM [Clonazepam] 0.5 mg PO BID 05/08/20 01/21/22 Atorvastatin Calcium [Lipitor] 80 mg ORAL DAILY 08/30/20 01/21/22 Metoprolol Tartrate [Lopressor] 12.5 mg PO DAILY 08/30/20 01/21/22 Warfarin [Coumadin] 1.5 mg PO DAILY 08/30/20 09/30/20 Aspirin [Vaz[place]] 81 mg PO DAILY 01/21/22 01/21/22 Potassium Chloride 10 meq PO DAILY 01/21/22 01/21/22 Senna [Senokot] 8.6 mg PO BID 01/21/22 01/21/22 traZODone [Desyrel] 25 mg PO HS 01/21/22 01/21/22 - Allergies Allergies/Adverse Reactions: Allergies Allergy/AdvReac Type Severity Reaction Status Date / Time Penicillins Allergy Rash Verified 08/26/21 13:10 - Social History Does the pt smoke?: No Smoking Status: Never smoker Does the pt drink ETOH?: Yes Does the pt have substance abuse?: No PD ED PE NORMAL - Vitals Vital signs reviewed: Yes - General General: No acute distress, Well developed/nourished, Other (masked older male with vacant stare ) - HEENT HEENT: PERRL, EOMI, Other (escar to vertex without significant associated tenderness or surrounding bruising. No step off or deformity. ) - Neck Neck: Supple, no meningeal sign, No bony TTP - Cardiac Cardiac: RRR, No murmur - Respiratory Respiratory: No respiratory distress, Other (rhonchi to the left base. ) - Abdomen Abdomen: Soft, Non tender - Back Back: No CVA TTP, No spinal TTP - Derm Derm: Normal color, Warm and dry, No rash - Extremities Extremities: No deformity, No edema - Neuro Neuro: building mechanic 2-12 intact, No motor deficit, No sensory deficit Eye Opening: Spontaneous Motor: Obeys Commands Verbal: Confused GCS Score: 14 - Psych Psych: Normal mood, Normal affect Results - Vitals Vitals: Vital Signs - 24 hr 01/21/22 01/21/22 01/21/22 10:19 11:03 11:47 Temperature 37.2 C Heart Rate 95 73 71 Respiratory 18 19 18 Rate Blood Pressure 122/70 138/60 H 136/62 H O2 Saturation 84 L 100 100 If not protocol : Oxygen Flow, liters/minute 01/21/22 01/21/22 01/21/22 12:07 12:21 12:22 Temperature Heart Rate 72 Respiratory 33 H 20 24 Rate Blood Pressure 142/63 H O2 Saturation 100 86 L 98 If not protocol 4 3 : Oxygen Flow, liters/minute Oxygen O2 Source Nasal cannula - Labs Labs: Laboratory Tests 01/21/22 01/21/22 01/21/22 10:35 10:35 10:35 WBC 13.4 H RBC 2.86 L Hgb 8.8 L Hct 29.2 L MCV 102.1 H MCH 30.8 MCHC 30.1 L RDW 17.4 H Plt Count 101 L MPV 9.8 Neut # (Auto) 11.8 H Lymph # (Auto) 0.6 L [place] # (Auto) 0.8 Eos # (Auto) 0.0 Baso # (Auto) 0.0 Absolute Nucleated RBC 0.00 Nucleated RBC % 0.0 PT 15.6 H INR 1.4 H Sodium 142 Potassium 4.0 Chloride 105 Carbon Dioxide 32 Anion Gap 5.0 L BUN 35 H Creatinine 1.8 H Estimated GFR (MDRD) 36 L Glucose 108 H Lactic Acid Calcium 9.2 Total Bilirubin 1.2 H AST 37 ALT 26 Alkaline Phosphatase 119 Total Protein 6.6 L Albumin 3.2 Globulin 3.4 Albumin/Globulin Ratio 0.9 L Lipase 30 01/21/22 10:40 WBC RBC Hgb Hct MCV MCH MCHC RDW Plt Count MPV Neut # (Auto) Lymph # (Auto) [place] # (Auto) Eos # (Auto) Baso # (Auto) Absolute Nucleated RBC Nucleated RBC % PT INR Sodium Potassium Chloride Carbon Dioxide Anion Gap BUN Creatinine Estimated GFR (MDRD) Glucose Lactic Acid 1.0 Calcium Total Bilirubin AST ALT Alkaline Phosphatase Total Protein Albumin Globulin Albumin/Globulin Ratio Lipase - Rads (name of study) ct head Radiology: Prelim report reviewed (Impression: No acute intracranial abnormality. Chronic volume loss. Possible posterior scalp contusion.), Final report received, EMP read indepedently, See rad report chest Radiology: Prelim report reviewed (Impression: Right greater than left mild to moderate lung disease and small pleural effusions. This could represent edema or infectious or inflammatory airspace process. Consider future imaging surveillance to assess for resolution.), EMP read indepedently, See rad report PD MEDICAL DECISION MAKING - ED course Complexity details: reviewed old records, reviewed results, re-evaluated patient, considered differential, d/w family ED course: 89-year-old male with advanced dementia noted this morning to be less responsive than usual has significant infiltrate to his chest x-ray elevated white blood cell count and hypoxia. He is teated in the ED with rocephin and zithromax IV and oxygen by N/C Departure - Departure Disposition: 66 [facility] DC/Xfer Clinical Impression: Pneumonia Qualifiers: Pneumonia type: due to unspecified organism Laterality: bilateral Lung location: unspecified part of lung Qualified Code(s): J18.9 - Pneumonia, unspecified organism Condition: Stable
--- OUTSIDE RECORDS SUMMARY | 2022-01-21 10:41 | EXTERNAL MEDICAL SUMMARY RPT | Continuity of Care Document ---
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 (units (un known) date) (Allopurinol 100 unknown) Mg Tablet) 100 mg PO DAILY JOHN (unknown) (no (unknown) (unknown) Approved by: (units (u nknown) date) anisa Omer M.D. on 11/09/2021 at 10:46 ? (unknown) (no (unknown) (unknown) BUN (9-20) mg/dL (units (unknown) date) unknown) (unknown) (no (unknown) (unknown) BUN 27 H (9-20) (units (unknown) date) mg/dL unknown) (unknown) (no (unknown) (unknown) BUN (9-20) mg/dL (units (unknown) date) unknown) (unknown) (no (unknown) (unknown) BUN/Creatinine (units (unknown) date) Ratio (6-22) unknown) (unknown) (no (unknown) (unknown) BUN/Creatinine (units (unknown) date) Ratio 19.6 (6-22) unknown) (unknown) (no (unknown) (unknown) BUN/Creatinine (units (unknown) date) Ratio (6-22) unknown) (unknown) (no (unknown) (unknown) Baso # (Auto) (units ( unknown) date) (0-100) /uL unknown) (unknown) (no (unknown) (unknown) Baso # (Auto) (units ( unknown) date) (0-100) /uL unknown) (unknown) (no (unknown) (unknown) Baso # (Auto) 0 (units (unknown) date) (0-100) /uL unknown) (unknown) (no (unknown) (unknown) Baso % (Auto) (units ( unknown) date) (0-2) % unknown) (unknown) (no (unknown) (unknown) Baso % (Auto) (units ( unknown) date) (0-2) % unknown) (unknown) (no (unknown) (unknown) Baso % (Auto) 0.5 (units (unknown) date) (0-2) % unknown) (unknown) (no (unknown) (unknown) Blood Culture (units ( unknown) date) Stat unknown) (unknown) (no (unknown) (unknown) Blood Pressure (units (unknown) date) 161/75 H 11/09/21 unknown) 11:00 (unknown) (no (unknown) (unknown) Blood Pressure (units (unknown) date) 156/69 H 174/79 H unknown) 164/76 H (unknown) (no (unknown) (unknown) Blood Pressure (units (unknown) date) 161/75 H 161/75 H unknown) 164/76 H (unknown) (no (unknown) (unknown) Blood Pressure (units (unknown) date) 171/85 H unknown) (unknown) (no (unknown) (unknown) Bones and chest (units (unknown) date) wall:? No unknown) suspicious bony lesions.? Overlying soft tissues (unknown) (no (unknown) (unknown) Bones:? No (units (unk nown) date) fractures or unknown) dislocations.? Pelvic ring appears intact.? No (unknown) (no (unknown) (unknown) Brain:? No (units (unk nown) date) intracranial unknown) bleeds or masses.? There is cerebral volume loss for (unknown) (no (unknown) (unknown) CARDIOVASCULAR: (units (unknown) date) Regular rate and unknown) rhythm without murmurs, rubs or gallops. (unknown) (no (unknown) (unknown) CK-MB (CK-2) (units (u nknown) date) unknown) (unknown) (no (unknown) (unknown) CK-MB (CK-2) (units (u nknown) date) unknown) (unknown) (no (unknown) (unknown) CK-MB (CK-2) TNP (units (unknown) date) unknown) (unknown) (no (unknown) (unknown) CK-MB (CK-2) Rel (units (unknown) date) Index unknown) (unknown) (no (unknown) (unknown) CK-MB (CK-2) Rel (units (unknown) date) Index unknown) (unknown) (no (unknown) (unknown) CK-MB (CK-2) Rel (units (unknown) date) Index TNP unknown) (unknown) (no (unknown) (unknown) COMPARISON:? (units (u nknown) date) None. unknown) (unknown) (no (unknown) (unknown) COVID19 -Nasal (units (unknown) date) RAPID/Pre-Proc unknown) Stat (unknown) (no (unknown) (unknown) CSF spaces:? (units (u nknown) date) Basal cisterns are unknown) patent.? No extra-axial fluid collections.? The (unknown) (no (unknown) (unknown) CT head/brain wo (units (unknown) date) con Stat unknown) (unknown) (no (unknown) (unknown) CT scan - head: (units (unknown) date) unknown) (unknown) (no (unknown) (unknown) Calcium (units (unkno wn) date) (8.4-10.2) mg/dL unknown) (unknown) (no (unknown) (unknown) Calcium 8.8 (units (un known) date) (8.4-10.2) mg/dL unknown) (unknown) (no (unknown) (unknown) Calcium (units (unkno wn) date) (8.4-10.2) mg/dL unknown) (unknown) (no (unknown) (unknown) Carbon Dioxide (units (unknown) date) (22-32) mmol/L unknown) (unknown) (no (unknown) (unknown) Carbon Dioxide 30 (units (unknown) date) (22-32) mmol/L unknown) (unknown) (no (unknown) (unknown) Carbon Dioxide (units (unknown) date) (22-32) mmol/L unknown) (unknown) (no (unknown) (unknown) Chest x-ray: (units (u nknown) date) unknown) (unknown) (no (unknown) (unknown) Chief Complaint: (units (unknown) date) Fall unknown) (unknown) (no (unknown) (unknown) Chloride (98-107) (units (unknown) date) mmol/L unknown) (unknown) (no (unknown) (unknown) Chloride 104 (units (u nknown) date) (98-107) mmol/L unknown) (unknown) (no (unknown) (unknown) Chloride (98-107) (units (unknown) date) mmol/L unknown) (unknown) (no (unknown) (unknown) Clinical (units (unkno wn) date) Impression: unknown) (unknown) (no (unknown) (unknown) Clonazepam (units (unk nown) date) (Clonazepam 0.5 Mg unknown) Tablet) 0.5 mg PO DAILY PRN (unknown) (no (unknown) (unknown) Clonazepam (units (unk nown) date) (Clonazepam 0.5 Mg unknown) Tablet) 0.5 mg PO NOW ONE (unknown) (no (unknown) (unknown) Comment:? If (units (u nknown) date) continue to unknown) suspect acute fracture, consider CT or MRI. 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 unknown) Stat (unknown) (no (unknown) (unknown) Course (units (unkno wn) date) unknown) (unknown) (no (unknown) (unknown) Creatinine (units (unk nown) date) (0.66-1.25) mg/dL unknown) (unknown) (no (unknown) (unknown) Creatinine 1.38 H (units (unknown) date) (0.66-1.25) mg/dL unknown) (unknown) (no (unknown) (unknown) Creatinine (units (unk nown) date) (0.66-1.25) mg/dL unknown) (unknown) (no (unknown) (unknown) : 1930 (units (unknown) date) Acct:[id number] unknown) (unknown) (no (unknown) (unknown) : 1930 (units (unknown) date) unknown) (unknown) (no (unknown) (unknown) Date of Service: (units (unknown) date) 11/09/21 unknown) (unknown) (no (unknown) (unknown) Departure (units (unkn own) date) unknown) (unknown) (no (unknown) (unknown) Dictated by: (units (u nknown) date) anisa Omer M.D. on 11/09/2021 at 10:45 ? ? (unknown) (no (unknown) (unknown) Dictated by: (units (u nknown) date) Jonnathan Clemente, unknown) [facility] on 11/09/2021 at 10:47 ? ? (unknown) (no (unknown) (unknown) Dictated by: (units (u nknown) date) Jonnathan Clemente, unknown) [facility] on 11/09/2021 at 10:48 ? ? (unknown) (no (unknown) (unknown) Dicyclomine HCl (units (unknown) date) (Dicyclomine 10 Mg unknown) Capsule) 10 mg PO BID JOHN (unknown) (no (unknown) (unknown) Discharge Plan (units (unknown) date) unknown) (unknown) (no (unknown) (unknown) Discontinued (units (u nknown) date) Medications unknown) (unknown) (no (unknown) (unknown) Disorientation, (units (unknown) date) unspecified unknown) (unknown) (no (unknown) (unknown) Dr. Keenan (units (un known) date) accepts patient unknown) (unknown) (no (unknown) (unknown) ECG Data (units (unkno wn) date) unknown) (unknown) (no (unknown) (unknown) EKG-12 Lead Stat (units (unknown) date) unknown) (unknown) (no (unknown) (unknown) ER Physician: (units ( unknown) date) Shauna Roblero unknown) D.O. (unknown) (no (unknown) (unknown) EXTREMITIES: (units (u nknown) date) Normal range of unknown) motion, no clubbing or edema. Neurovascularly (unknown) (no (unknown) (unknown) Eos # (Auto) (units (u nknown) date) (0-450) /uL unknown) (unknown) (no (unknown) (unknown) Eos # (Auto) (units (u nknown) date) (0-450) /uL unknown) (unknown) (no (unknown) (unknown) Eos # (Auto) 100 (units (unknown) date) (0-450) /uL unknown) (unknown) (no (unknown) (unknown) Eos % (Auto) (units (u nknown) date) (2-4) % unknown) (unknown) (no (unknown) (unknown) Eos % (Auto) (units (u nknown) date) (2-4) % unknown) (unknown) (no (unknown) (unknown) Eos % (Auto) 1.6 (units (unknown) date) L (2-4) % unknown) (unknown) (no (unknown) (unknown) Essential (units (unkn own) date) hypertension unknown) (unknown) (no (unknown) (unknown) Estimated GFR (units ( unknown) date) (>60) mL/min unknown) (unknown) (no (unknown) (unknown) Estimated GFR 49 (units (unknown) date) L (>60) mL/min unknown) (unknown) (no (unknown) (unknown) Estimated GFR (units ( unknown) date) (>60) mL/min unknown) (unknown) (no (unknown) (unknown) Exam (units (unkno wn) date) unknown) (unknown) (no (unknown) (unknown) Extremity x-ray (units (unknown) date) #1: unknown) (unknown) (no (unknown) (unknown) FINDINGS:? (units (unk nown) date) unknown) (unknown) (no (unknown) (unknown) Famotidine (units (unk nown) date) (Famotidine 20 Mg unknown) Tablet) 40 mg PO DAILY JOHN (unknown) (no (unknown) (unknown) Furosemide (units (unk nown) date) (Furosemide 20 Mg unknown) Tablet) 60 mg PO DAILY JOHN (unknown) (no (unknown) (unknown) GENERAL: Alert (units (unknown) date) elderly unknown) 89-year-old male (unknown) (no (unknown) (unknown) : No CVA (units (unk nown) date) tenderness unknown) (unknown) (no (unknown) (unknown) General (units (unkno wn) date) unknown) (unknown) (no (unknown) (unknown) GenericComposite[ (units (unknown) date) Plt Count unknown) (150-400) X10^3/uL ] (unknown) (no (unknown) (unknown) GenericComposite[ (units (unknown) date) Plt Count unknown) (150-400) X10^3/uL ] (unknown) (no (unknown) (unknown) GenericComposite[ (units (unknown) date) Plt Count 147 L unknown) (150-400) X10^3/uL ] (unknown) (no (unknown) (unknown) GenericComposite[ (units (unknown) date) RBC (4.5-5.9) unknown) X10^6/uL ] (unknown) (no (unknown) (unknown) GenericComposite[ (units (unknown) date) RBC (4.5-5.9) unknown) X10^6/uL ] (unknown) (no (unknown) (unknown) GenericComposite[ (units (unknown) date) RBC 2.97 L unknown) (4.5-5.9) X10^6/uL ] (unknown) (no (unknown) (unknown) GenericComposite[ (units (unknown) date) WBC (4.5-11.0) unknown) X10^3/uL ] (unknown) (no (unknown) (unknown) GenericComposite[ (units (unknown) date) WBC (4.5-11.0) unknown) X10^3/uL ] (unknown) (no (unknown) (unknown) GenericComposite[ (units (unknown) date) WBC 4.9 (4.5-11.0) unknown) X10^3/uL ] (unknown) (no (unknown) (unknown) Globulin (units (unkno wn) date) (1.7-4.1) g/dL unknown) (unknown) (no (unknown) (unknown) Globulin 3.2 (units (u nknown) date) (1.7-4.1) g/dL unknown) (unknown) (no (unknown) (unknown) Globulin (units (unkno wn) date) (1.7-4.1) g/dL unknown) (unknown) (no (unknown) (unknown) Glucose (80-110) (units (unknown) date) mg/dL unknown) (unknown) (no (unknown) (unknown) Glucose 111 H (units ( unknown) date) (80-110) mg/dL unknown) (unknown) (no (unknown) (unknown) Glucose (80-110) (units (unknown) date) mg/dL unknown) (unknown) (no (unknown) (unknown) Gout, unspecified (units (unknown) date) unknown) (unknown) (no (unknown) (unknown) HEENT: Head (units (un known) date) atraumatic,EOMI, unknown) pupils reactive, face symmetric, moist mucous (unknown) (no (unknown) (unknown) HPI - Altered (units ( unknown) date) Mental Status unknown) (unknown) (no (unknown) (unknown) HPI narrative: (units (unknown) date) unknown) (unknown) (no (unknown) (unknown) Hct (41-53) % (units ( unknown) date) unknown) (unknown) (no (unknown) (unknown) Hct (41-53) % (units ( unknown) date) unknown) (unknown) (no (unknown) (unknown) Hct 27.7 L (units (unk nown) date) (41-53) % unknown) (unknown) (no (unknown) (unknown) Hgb (13.5-17.5) (units (unknown) date) g/dL unknown) (unknown) (no (unknown) (unknown) Hgb (13.5-17.5) (units (unknown) date) g/dL unknown) (unknown) (no (unknown) (unknown) Hgb 9.1 L (units (unkn own) date) (13.5-17.5) g/dL unknown) (unknown) (no (unknown) (unknown) History of (units (unk nown) date) Present Illness unknown) (unknown) (no (unknown) (unknown) IMPRESSION:? (units (u nknown) date) Cardiomegaly.? unknown) Grossly clear lung mcconnell. (unknown) (no (unknown) (unknown) IMPRESSION:? No (units (unknown) date) evidence acute unknown) intracranial process. (unknown) (no (unknown) (unknown) IMPRESSION:? No (units (unknown) date) plain film unknown) evidence of acute fracture or dislocation of the (unknown) (no (unknown) (unknown) INDICATIONS:? (units ( unknown) date) confusion unknown) (unknown) (no (unknown) (unknown) INDICATIONS:? (units ( unknown) date) fall pain unknown) (unknown) (no (unknown) (unknown) INDICATIONS:? (units ( unknown) date) founnd down on unknown) coumadin (unknown) (no (unknown) (unknown) INR (0.9-1.3) (units ( unknown) date) unknown) (unknown) (no (unknown) (unknown) INR (0.9-1.3) (units ( unknown) date) unknown) (unknown) (no (unknown) (unknown) INR 1.5 H (units (unkn own) date) (0.9-1.3) unknown) (unknown) (no (unknown) (unknown) Image quality:? (units (unknown) date) Excellent.? 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 (unknown) (no (unknown) (unknown) Lab Data (units (unkno wn) date) unknown) (unknown) (no (unknown) (unknown) Labs: (units (unkno wn) date) unknown) (unknown) (no (unknown) (unknown) Lactate (0.7-2.1) (units (unknown) date) mmol/L unknown) (unknown) (no (unknown) (unknown) Lactate (0.7-2.1) (units (unknown) date) mmol/L unknown) (unknown) (no (unknown) (unknown) Lactate 0.9 (units (un known) date) (0.7-2.1) mmol/L unknown) (unknown) (no (unknown) (unknown) Lactate (Lactic (units (unknown) date) Acid) Stat unknown) (unknown) (no (unknown) (unknown) Loc: ED (units (unkno wn) date) unknown) (unknown) (no (unknown) (unknown) Lungs and (units (unkn own) date) pleura:? Lungs are unknown) grossly clear.? No pleural effusions or (unknown) (no (unknown) (unknown) Lymph # (Auto) (units (unknown) date) (1182-3548) /uL unknown) (unknown) (no (unknown) (unknown) Lymph # (Auto) (units (unknown) date) (4642-5440) /uL unknown) (unknown) (no (unknown) (unknown) Lymph # (Auto) (units (unknown) date) 700 L (3729-8239) unknown) /uL (unknown) (no (unknown) (unknown) Lymph % (Auto) (units (unknown) date) (25-40) % unknown) (unknown) (no (unknown) (unknown) Lymph % (Auto) (units (unknown) date) (25-40) % unknown) (unknown) (no (unknown) (unknown) Lymph % (Auto) (units (unknown) date) 15.1 L (25-40) % unknown) (unknown) (no (unknown) (unknown) MCH (26-34) PG (units (unknown) date) unknown) (unknown) (no (unknown) (unknown) MCH (26-34) PG (units (unknown) date) unknown) (unknown) (no (unknown) (unknown) MCH 30.8 (26-34) (units (unknown) date) PG unknown) (unknown) (no (unknown) (unknown) MCHC (30-36) % (units (unknown) date) unknown) (unknown) (no (unknown) (unknown) MCHC (30-36) % (units (unknown) date) unknown) (unknown) (no (unknown) (unknown) MCHC 33.0 (30-36) (units (unknown) date) % unknown) (unknown) (no (unknown) (unknown) MCV (80-100) fL (units (unknown) date) unknown) (unknown) (no (unknown) (unknown) MCV (80-100) fL (units (unknown) date) unknown) (unknown) (no (unknown) (unknown) MCV 93.2 (80-100) (units (unknown) date) fL unknown) (unknown) (no (unknown) (unknown) MDM - Altered (units ( unknown) date) Mental Status unknown) (unknown) (no (unknown) (unknown) MDM Narrative (units ( unknown) date) unknown) (unknown) (no (unknown) (unknown) MR#: [id number] (units (unknown) date) unknown) (unknown) (no (unknown) (unknown) Major depressive (units (unknown) date) disorder unknown) (unknown) (no (unknown) (unknown) Mediastinum:? (units ( unknown) date) Mediastinal unknown) contours appear normal.? Moderate to severe (unknown) (no (unknown) (unknown) Medical History (units (unknown) date) (Updated 11/09/21 unknown) @ 16:46 by Shauna Roblero DO) (unknown) (no (unknown) (unknown) Medical decision (units (unknown) date) making narrative: unknown) (unknown) (no (unknown) (unknown) Metoprolol (units (unk nown) date) Tartrate unknown) (Metoprolol Ir 25 Mg Tablet) 12.5 mg PO DAILY JOHN (unknown) (no (unknown) (unknown) [place] # (Auto) (units ( unknown) date) (0-900) /uL unknown) (unknown) (no (unknown) (unknown) [place] # (Auto) (units ( unknown) date) (0-900) /uL unknown) (unknown) (no (unknown) (unknown) [place] # (Auto) 300 (units (unknown) date) (0-900) /uL unknown) (unknown) (no (unknown) (unknown) [place] % (Auto) (units ( unknown) date) (3-14) % unknown) (unknown) (no (unknown) (unknown) [place] % (Auto) (units ( unknown) date) (3-14) % unknown) (unknown) (no (unknown) (unknown) [place] % (Auto) 6.2 (units (unknown) date) (3-14) % unknown) (unknown) (no (unknown) (unknown) NEUROLOGICAL: (units ( unknown) date) Moving all unknown) extremities (unknown) (no (unknown) (unknown) Narrative: (units (unk nown) date) unknown) (unknown) (no (unknown) (unknown) Neut # (Auto) (units ( unknown) date) (3590-8973) /uL unknown) (unknown) (no (unknown) (unknown) Neut # (Auto) (units ( unknown) date) (7455-4477) /uL unknown) (unknown) (no (unknown) (unknown) Neut # (Auto) (units ( unknown) date) 3800 (8394-7648) unknown) /uL (unknown) (no (unknown) (unknown) Neut % (Auto) (units ( unknown) date) (50-75) % unknown) (unknown) (no (unknown) (unknown) Neut % (Auto) (units ( unknown) date) (50-75) % unknown) (unknown) (no (unknown) (unknown) Neut % (Auto) (units ( unknown) date) 76.6 H (50-75) % unknown) (unknown) (no (unknown) (unknown) Noncontrast 4.5 (units (unknown) date) mm thick angled unknown) axial sections acquired from the foramen magnum (unknown) (no (unknown) (unknown) Nystatin (units (unkno wn) date) (Nystatin Cream 30 unknown) Gm) 1 applic TOP DAILY PRN (unknown) (no (unknown) (unknown) Ordered: (units (unkno wn) date) unknown) (unknown) (no (unknown) (unknown) Ordering (units (unkno wn) date) Provider: unknown) Shauna Roblero D.O. (unknown) (no (unknown) (unknown) Orders (units (unkno wn) date) unknown) (unknown) (no (unknown) (unknown) Oxygen Delivery (units (unknown) date) Method 11/09/21 unknown) 11:00 (unknown) (no (unknown) (unknown) Oxygen Delivery (units (unknown) date) Method unknown) (unknown) (no (unknown) (unknown) Oxygen Delivery (units (unknown) date) Method Room Air unknown) Room Air (unknown) (no (unknown) (unknown) Oxygen Delivery (units (unknown) date) Method Room Air unknown) Room Air Room Air (unknown) (no (unknown) (unknown) Oxygen Flow Rate (units (unknown) date) unknown) (unknown) (no (unknown) (unknown) Oxygen Flow Rate (units (unknown) date) 0 unknown) (unknown) (no (unknown) (unknown) PROCEDURE:? CT (units (unknown) date) HEAD/BRAIN WO CON unknown) (unknown) (no (unknown) (unknown) PROCEDURE:? XR (units (unknown) date) CHEST 1V unknown) (unknown) (no (unknown) (unknown) PROCEDURE:? XR (units (unknown) date) HIP W PEL IF DONE unknown) LT 2V (unknown) (no (unknown) (unknown) PT (10.1-12.7) (units (unknown) date) SECONDS unknown) (unknown) (no (unknown) (unknown) PT (10.1-12.7) (units (unknown) date) SECONDS unknown) (unknown) (no (unknown) (unknown) PT 17.2 H (units (unkn own) date) (10.1-12.7) unknown) SECONDS (unknown) (no (unknown) (unknown) Paced rhythm rate (units (unknown) date) 78 PVC noted no unknown) priors to compare (unknown) (no (unknown) (unknown) Paroxetine HCl (units (unknown) date) (Paroxetine 20 Mg unknown) Tablet) 20 mg PO DAILY JOHN (unknown) (no (unknown) (unknown) Paroxysmal atrial (units (unknown) date) fibrillation unknown) (unknown) (no (unknown) (unknown) Patient (units (unkno wn) date) Disposition: unknown) Admitted as Observation (unknown) (no (unknown) (unknown) Patient History (units (unknown) date) unknown) (unknown) (no (unknown) (unknown) Patient does have (units (unknown) date) a history of unknown) dementia. He is having aggressive behavior (unknown) (no (unknown) (unknown) Patient is an (units ( unknown) date) 89-year-old male unknown) history of depression, BPH, hypertension, (unknown) (no (unknown) (unknown) Patient: (units (unkno wn) date) Roberto Harmon unknown) (unknown) (no (unknown) (unknown) Patient: (units (unkno wn) date) Roberto Harmon J MR#: unknown) [id number] (unknown) (no (unknown) (unknown) Penicillins (units (un known) date) Allergy Unknown unknown) Verified 11/09/21 13:38 (unknown) (no (unknown) (unknown) Potassium (units (unkn own) date) (3.4-5.1) mmol/L unknown) (unknown) (no (unknown) (unknown) Potassium 4.0 (units ( unknown) date) (3.4-5.1) mmol/L unknown) (unknown) (no (unknown) (unknown) Potassium (units (unkn own) date) (3.4-5.1) mmol/L unknown) (unknown) (no (unknown) (unknown) Potassium (units (unkn own) date) Chloride unknown) (Potassium Chloride 10 Meq Tab) 10 meq PO TID JOHN (unknown) (no (unknown) (unknown) Procalcitonin (units ( unknown) date) (<0.5) ng/mL unknown) (unknown) (no (unknown) (unknown) Procalcitonin (units ( unknown) date) 0.08 (<0.5) ng/mL unknown) (unknown) (no (unknown) (unknown) Procalcitonin (units ( unknown) date) (<0.5) ng/mL unknown) (unknown) (no (unknown) (unknown) Procalcitonin (units ( unknown) date) Stat unknown) (unknown) (no (unknown) (unknown) Procedure: CT (units ( unknown) date) head/brain wo con unknown) (unknown) (no (unknown) (unknown) Procedure: XR (units ( unknown) date) chest 1V unknown) (unknown) (no (unknown) (unknown) Procedure: XR hip (units (unknown) date) w pel if done LT unknown) 2V (unknown) (no (unknown) (unknown) Prothrombin Time (units (unknown) date) INR Stat unknown) (unknown) (no (unknown) (unknown) Pulse Oximetry 94 (units (unknown) date) 11/09/21 11:00 unknown) (unknown) (no (unknown) (unknown) Pulse Oximetry (units (unknown) date) 100 99 99 unknown) (unknown) (no (unknown) (unknown) Pulse Oximetry 98 (units (unknown) date) 94 96 unknown) (unknown) (no (unknown) (unknown) Pulse Oximetry 99 (units (unknown) date) unknown) (unknown) (no (unknown) (unknown) Pulse Rate 69 (units ( unknown) date) 11/09/21 11:00 unknown) (unknown) (no (unknown) (unknown) Pulse Rate 69 (units ( unknown) date) unknown) (unknown) (no (unknown) (unknown) Pulse Rate 69 69 (units (unknown) date) 69 unknown) (unknown) (no (unknown) (unknown) Pulse Rate 70 69 (units (unknown) date) 69 unknown) (unknown) (no (unknown) (unknown) Quetiapine (units (unk nown) date) Fumarate unknown) (Quetiapine 25 Mg Tablet) 12.5 mg PO Q6H JOHN (unknown) (no (unknown) (unknown) RDW (11.6-14.8) % (units (unknown) date) unknown) (unknown) (no (unknown) (unknown) RDW (11.6-14.8) % (units (unknown) date) unknown) (unknown) (no (unknown) (unknown) RDW 19.0 H (units (unk nown) date) (11.6-14.8) % unknown) (unknown) (no (unknown) (unknown) RESPIRATORY: (units (u nknown) date) Breath sounds unknown) equal bilaterally, no wheezes rales or rhonchi. (unknown) (no (unknown) (unknown) Related Data (units (u nknown) date) unknown) (unknown) (no (unknown) (unknown) Repeated falls (units (unknown) date) unknown) (unknown) (no (unknown) (unknown) Respiratory Rate (units (unknown) date) 14 11/09/21 11:00 unknown) (unknown) (no (unknown) (unknown) Respiratory Rate (units (unknown) date) 10 L 12 18 unknown) (unknown) (no (unknown) (unknown) Respiratory Rate (units (unknown) date) 13 14 19 unknown) (unknown) (no (unknown) (unknown) Respiratory Rate (units (unknown) date) 18 unknown) (unknown) (no (unknown) (unknown) Result diagrams: (units (unknown) date) unknown) (unknown) (no (unknown) (unknown) Review of Systems (units (unknown) date) unknown) (unknown) (no (unknown) (unknown) SARS-CoV-2 (PCR) (units (unknown) date) (Negative) unknown) (unknown) (no (unknown) (unknown) SARS-CoV-2 (PCR) (units (unknown) date) Negative unknown) (Negative) (unknown) (no (unknown) (unknown) SARS-CoV-2 (PCR) (units (unknown) date) (Negative) unknown) (unknown) (no (unknown) (unknown) SKIN: Warm, dry, (units (unknown) date) no laceration, no unknown) petechiae, no rashes or lesions. (unknown) (no (unknown) (unknown) Signed By: (units (unk nown) date) unknown) (unknown) (no (unknown) (unknown) Sinuses:? (units (unkn own) date) Visualized sinuses unknown) and mastoids are clear.? (unknown) (no (unknown) (unknown) Skull and face:? (units (unknown) date) Calvarium and unknown) visualized facial bones appear intact, without (unknown) (no (unknown) (unknown) Smoking Status: (units (unknown) date) Unknown if ever unknown) smoked (unknown) (no (unknown) (unknown) Social History (units (unknown) date) (Reviewed 11/09/21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 date) unknown) (unknown) (no (unknown) (unknown) Albumin (units (unkno wn) date) unknown) (unknown) (no (unknown) (unknown) Albumin/Globulin (units (unknown) date) Ratio unknown) (unknown) (no (unknown) (unknown) Albumin/Globulin (units (unknown) date) Ratio 1.1 unknown) (unknown) (no (unknown) (unknown) Albumin/Globulin (units (unknown) date) Ratio unknown) (unknown) (no (unknown) (unknown) Alkaline (units (unkno wn) date) Phosphatase unknown) (unknown) (no (unknown) (unknown) Alkaline (units (unkno wn) date) Phosphatase 131 H unknown) (unknown) (no (unknown) (unknown) Alkaline (units (unkno wn) date) Phosphatase unknown) (unknown) (no (unknown) (unknown) All other systems (units (unknown) date) were reviewed unknown) negative (unknown) (no (unknown) (unknown) Allergy/AdvReac (units (unknown) date) Type Severity unknown) Reaction Status Date / Time (unknown) (no (unknown) (unknown) Assessment + Plan (units (unknown) date) unknown) (unknown) (no (unknown) (unknown) Assessment + Plan (units (unknown) date) narrative: unknown) (unknown) (no (unknown) (unknown) BUN (units (unkno wn) date) unknown) (unknown) (no (unknown) (unknown) BUN 27 H (units (unkno wn) date) unknown) (unknown) (no (unknown) (unknown) BUN (units (unkno wn) date) unknown) (unknown) (no (unknown) (unknown) BUN/Creatinine (units (unknown) date) Ratio unknown) (unknown) (no (unknown) (unknown) BUN/Creatinine (units (unknown) date) Ratio 19.6 unknown) (unknown) (no (unknown) (unknown) BUN/Creatinine (units (unknown) date) Ratio unknown) (unknown) (no (unknown) (unknown) Baso # (Auto) (units ( unknown) date) unknown) (unknown) (no (unknown) (unknown) Baso # (Auto) (units ( unknown) date) unknown) (unknown) (no (unknown) (unknown) Baso # (Auto) 0 (units (unknown) date) unknown) (unknown) (no (unknown) (unknown) Baso % (Auto) (units ( unknown) date) unknown) (unknown) (no (unknown) (unknown) Baso % (Auto) (units ( unknown) date) unknown) (unknown) (no (unknown) (unknown) Baso % (Auto) 0.5 (units (unknown) date) unknown) (unknown) (no (unknown) (unknown) Been Physically (units (unknown) date) Hurt or Unwilling unknown) to Answer (unknown) (no (unknown) (unknown) Blood Pressure (units (unknown) date) 164/76 H 156/69 H unknown) 174/79 H (unknown) (no (unknown) (unknown) Blood Pressure (units (unknown) date) 164/76 H 171/85 H unknown) (unknown) (no (unknown) (unknown) Blood Pressure (units (unknown) date) 171/85 H unknown) (unknown) (no (unknown) (unknown) CHEST: (units (unkno wn) date) Respiratory unknown) excursions symmetric, clear to auscultation bilaterally (unknown) (no (unknown) (unknown) CK-MB (CK-2) (units (u nknown) date) unknown) (unknown) (no (unknown) (unknown) CK-MB (CK-2) TNP (units (unknown) date) unknown) (unknown) (no (unknown) (unknown) CK-MB (CK-2) (units (u nknown) date) unknown) (unknown) (no (unknown) (unknown) CK-MB (CK-2) Rel (units (unknown) date) Index unknown) (unknown) (no (unknown) (unknown) CK-MB (CK-2) Rel (units (unknown) date) Index TNP unknown) (unknown) (no (unknown) (unknown) CK-MB (CK-2) Rel (units (unknown) date) Index unknown) (unknown) (no (unknown) (unknown) CV: Regular rate (units (unknown) date) and rhythm, no unknown) murmurs, rubs, gallops, PMI nondisplaced (unknown) (no (unknown) (unknown) Calcium (units (unkno wn) date) unknown) (unknown) (no (unknown) (unknown) Calcium 8.8 (units (un known) date) unknown) (unknown) (no (unknown) (unknown) Calcium (units (unkno wn) date) unknown) (unknown) (no (unknown) (unknown) Carbon Dioxide (units (unknown) date) unknown) (unknown) (no (unknown) (unknown) Carbon Dioxide 30 (units (unknown) date) unknown) (unknown) (no (unknown) (unknown) Carbon Dioxide (units (unknown) date) unknown) (unknown) (no (unknown) (unknown) Chief complaint: (units (unknown) date) fall unknown) (unknown) (no (unknown) (unknown) Chloride (units (unkno wn) date) unknown) (unknown) (no (unknown) (unknown) Chloride 104 (units (u nknown) date) unknown) (unknown) (no (unknown) (unknown) Chloride (units (unkno wn) date) unknown) (unknown) (no (unknown) (unknown) Code status (units (un known) date) unknown) (unknown) (no (unknown) (unknown) Comment: (units (unkno wn) date) unknown) (unknown) (no (unknown) (unknown) Creatinine (units (unk nown) date) unknown) (unknown) (no (unknown) (unknown) Creatinine 1.38 H (units (unknown) date) unknown) (unknown) (no (unknown) (unknown) Creatinine (units (unk nown) date) unknown) (unknown) (no (unknown) (unknown) Critical Care (units ( unknown) date) time: unknown) (unknown) (no (unknown) (unknown) DNR DNI (units (unkno wn) date) unknown) (unknown) (no (unknown) (unknown) : 1930 (units (unknown) date) Acct:[id number] unknown) (unknown) (no (unknown) (unknown) Date Patient (units (u nknown) date) Seen: 11/09/21 unknown) (unknown) (no (unknown) (unknown) Dementia (units (unkno wn) date) unknown) (unknown) (no (unknown) (unknown) Disorientation, (units (unknown) date) unspecified unknown) (unknown) (no (unknown) (unknown) Disposition (units (un known) date) unknown) (unknown) (no (unknown) (unknown) EXTR: Warm, well (units (unknown) date) perfused, no unknown) clubbing/cyanosis/ edema, multiple new and old (unknown) (no (unknown) (unknown) Environment (units (un known) date) unknown) (unknown) (no (unknown) (unknown) Eos # (Auto) (units (u nknown) date) unknown) (unknown) (no (unknown) (unknown) Eos # (Auto) (units (u nknown) date) unknown) (unknown) (no (unknown) (unknown) Eos # (Auto) 100 (units (unknown) date) unknown) (unknown) (no (unknown) (unknown) Eos % (Auto) (units (u nknown) date) unknown) (unknown) (no (unknown) (unknown) Eos % (Auto) (units (u nknown) date) unknown) (unknown) (no (unknown) (unknown) Eos % (Auto) 1.6 (units (unknown) date) L unknown) (unknown) (no (unknown) (unknown) Essential (units (unkn own) date) hypertension unknown) (unknown) (no (unknown) (unknown) Estimated GFR (units ( unknown) date) unknown) (unknown) (no (unknown) (unknown) Estimated GFR 49 (units (unknown) date) L unknown) (unknown) (no (unknown) (unknown) Estimated GFR (units ( unknown) date) unknown) (unknown) (no (unknown) (unknown) Exam (units (unkno wn) date) unknown) (unknown) (no (unknown) (unknown) Exam Narrative: (units (unknown) date) unknown) (unknown) (no (unknown) (unknown) Family + Social (units (unknown) date) History unknown) (unknown) (no (unknown) (unknown) Family history: (units (unknown) date) unknown) (unknown) (no (unknown) (unknown) Feels Safe in (units ( unknown) date) Current Unwilling unknown) to Answer (unknown) (no (unknown) (unknown) Frequent falls (units (unknown) date) unknown) (unknown) (no (unknown) (unknown) GEN: Elderly (units (u nknown) date) male, speaks with unknown) accented [place]e, Alert and oriented x1, no (unknown) (no (unknown) (unknown) Globulin (units (unkno wn) date) unknown) (unknown) (no (unknown) (unknown) Globulin 3.2 (units (u nknown) date) unknown) (unknown) (no (unknown) (unknown) Globulin (units (unkno wn) date) unknown) (unknown) (no (unknown) (unknown) Glucose (units (unkno wn) date) unknown) (unknown) (no (unknown) (unknown) Glucose 111 H (units ( unknown) date) unknown) (unknown) (no (unknown) (unknown) Glucose (units (unkno wn) date) unknown) (unknown) (no (unknown) (unknown) Gout, unspecified (units (unknown) date) unknown) (unknown) (no (unknown) (unknown) HEENT: (units (unkno wn) date) Normocephalic, unknown) face symmetric, pupils equal round reactive to light, (unknown) (no (unknown) (unknown) Hct (units (unkno wn) date) unknown) (unknown) (no (unknown) (unknown) Hct (units (unkno wn) date) unknown) (unknown) (no (unknown) (unknown) Hct 27.7 L (units (unk nown) date) unknown) (unknown) (no (unknown) (unknown) He does have an (units (unknown) date) elevated troponin unknown) but no focal ischemic symptoms. Given overall (unknown) (no (unknown) (unknown) He is on warfarin (units (unknown) date) at baseline. Given unknown) his frequent and multiple falls, warfarin (unknown) (no (unknown) (unknown) Hgb (units (unkno wn) date) unknown) (unknown) (no (unknown) (unknown) Hgb (units (unkno wn) date) unknown) (unknown) (no (unknown) (unknown) Hgb 9.1 L (units (unkn own) date) unknown) (unknown) (no (unknown) (unknown) History (units (unkno wn) date) unknown) (unknown) (no (unknown) (unknown) History of (units (unk nown) date) Present Illness unknown) (unknown) (no (unknown) (unknown) Home Medications (units (unknown) date) and Allergies unknown) (unknown) (no (unknown) (unknown) I spent a total (units (unknown) date) of [] minutes of unknown) critical care time on this patient's care (unknown) (no (unknown) (unknown) INR (units (unkno wn) date) unknown) (unknown) (no (unknown) (unknown) INR (units (unkno wn) date) unknown) (unknown) (no (unknown) (unknown) INR 1.5 H (units (unkn own) date) unknown) (unknown) (no (unknown) (unknown) In addition to (units (unknown) date) above, 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 (unknown) (no (unknown) (unknown) 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 (unknown) (no (unknown) (unknown) Labs (units (unkno wn) date) unknown) (unknown) (no (unknown) (unknown) Labs: (units (unkno wn) date) unknown) (unknown) (no (unknown) (unknown) Lactate (units (unkno wn) date) unknown) (unknown) (no (unknown) (unknown) Lactate (units (unkno wn) date) unknown) (unknown) (no (unknown) (unknown) Lactate 0.9 (units (un known) date) unknown) (unknown) (no (unknown) (unknown) Low Maribel score (units (unknown) date) unknown) (unknown) (no (unknown) (unknown) Lymph # (Auto) (units (unknown) date) unknown) (unknown) (no (unknown) (unknown) Lymph # (Auto) (units (unknown) date) unknown) (unknown) (no (unknown) (unknown) Lymph # (Auto) (units (unknown) date) 700 L unknown) (unknown) (no (unknown) (unknown) Lymph % (Auto) (units (unknown) date) unknown) (unknown) (no (unknown) (unknown) Lymph % (Auto) (units (unknown) date) unknown) (unknown) (no (unknown) (unknown) Lymph % (Auto) (units (unknown) date) 15.1 L unknown) (unknown) (no (unknown) (unknown) MCH (units (unkno wn) date) unknown) (unknown) (no (unknown) (unknown) MCH (units (unkno wn) date) unknown) (unknown) (no (unknown) (unknown) MCH 30.8 (units (unkno wn) date) unknown) (unknown) (no (unknown) (unknown) MCHC (units (unkno wn) date) unknown) (unknown) (no (unknown) (unknown) MCHC (units (unkno wn) date) unknown) (unknown) (no (unknown) (unknown) MCHC 33.0 (units (unkn own) date) unknown) (unknown) (no (unknown) (unknown) MCV (units (unkno wn) date) unknown) (unknown) (no (unknown) (unknown) MCV (units (unkno wn) date) unknown) (unknown) (no (unknown) (unknown) MCV 93.2 (units (unkno wn) date) unknown) (unknown) (no (unknown) (unknown) Major depressive (units (unknown) date) disorder unknown) (unknown) (no (unknown) (unknown) Medical History (units (unknown) date) (Updated 11/09/21 unknown) @ 16:46 by Shauna Roblero DO) (unknown) (no (unknown) (unknown) Meds (units (unkno wn) date) unknown) (unknown) (no (unknown) (unknown) [facility] Unit, (units (unknown) date) coronary artery unknown) disease status post 4 vessel bypass remotely, (unknown) (no (unknown) (unknown) [place] # (Auto) (units ( unknown) date) unknown) (unknown) (no (unknown) (unknown) [place] # (Auto) (units ( unknown) date) unknown) (unknown) (no (unknown) (unknown) [place] # (Auto) 300 (units (unknown) date) unknown) (unknown) (no (unknown) (unknown) [place] % (Auto) (units ( unknown) date) unknown) (unknown) (no (unknown) (unknown) [place] % (Auto) (units ( unknown) date) unknown) (unknown) (no (unknown) (unknown) [place] % (Auto) 6.2 (units (unknown) date) unknown) (unknown) (no (unknown) (unknown) NECK: Supple, no (units (unknown) date) lymphadenopathy, unknown) thyroid without enlargement or nodularity, (unknown) (no (unknown) (unknown) NEURO: Alert and (units (unknown) date) oriented x1, unknown) nonfocal (unknown) (no (unknown) (unknown) Narrative (units (unkn own) date) unknown) (unknown) (no (unknown) (unknown) Narrative: (units (unk nown) date) unknown) (unknown) (no (unknown) (unknown) Neut # (Auto) (units ( unknown) date) unknown) (unknown) (no (unknown) (unknown) Neut # (Auto) (units ( unknown) date) unknown) (unknown) (no (unknown) (unknown) Neut # (Auto) (units ( unknown) date) 3800 unknown) (unknown) (no (unknown) (unknown) Neut % (Auto) (units ( unknown) date) unknown) (unknown) (no (unknown) (unknown) Neut % (Auto) (units ( unknown) date) unknown) (unknown) (no (unknown) (unknown) Neut % (Auto) (units ( unknown) date) 76.6 H unknown) (unknown) (no (unknown) (unknown) Objective (units (unkn own) date) unknown) (unknown) (no (unknown) (unknown) One sister had a (units (unknown) date) stroke, 1 other unknown) sister and 2 brothers remain alive and healthy. (unknown) (no (unknown) (unknown) Oxygen Delivery (units (unknown) date) Method Room Air unknown) (unknown) (no (unknown) (unknown) Oxygen Delivery (units (unknown) date) Method unknown) (unknown) (no (unknown) (unknown) Oxygen Delivery (units (unknown) date) Method Room Air unknown) Room Air (unknown) (no (unknown) (unknown) Oxygen Delivery (units (unknown) date) Method Room Air unknown) Room Air (unknown) (no (unknown) (unknown) Oxygen Flow Rate (units (unknown) date) unknown) (unknown) (no (unknown) (unknown) Oxygen Flow Rate (units (unknown) date) 0 unknown) (unknown) (no (unknown) (unknown) Oxygen Flow Rate (units (unknown) date) unknown) (unknown) (no (unknown) (unknown) Oxygen Flow Rate (units (unknown) date) 0 unknown) (unknown) (no (unknown) (unknown) PSYCH: Mood and (units (unknown) date) affect is within unknown) normal limits, judgment and insight are (unknown) (no (unknown) (unknown) PT (units (unkno wn) date) unknown) (unknown) (no (unknown) (unknown) PT (units (unkno wn) date) unknown) (unknown) (no (unknown) (unknown) PT 17.2 H (units (unkn own) date) unknown) (unknown) (no (unknown) (unknown) Paroxysmal atrial (units (unknown) date) fibrillation unknown) (unknown) (no (unknown) (unknown) Past medical (units (u nknown) date) history: unknown) (unknown) (no (unknown) (unknown) Patient History (units (unknown) date) unknown) (unknown) (no (unknown) (unknown) Patient does have (units (unknown) date) a longstanding unknown) history of attempts at elopement. He has been (unknown) (no (unknown) (unknown) Patient is a (units (u nknown) date) remote smoker, and unknown) no alcohol use. (unknown) (no (unknown) (unknown) Patient is on (units (u nknown) date) Lasix 60 mg daily, unknown) along with his typical cardiac medications. No (unknown) (no (unknown) (unknown) Patient: (units (unkno wn) date) Roberto Harmon MR#: unknown) [id number] (unknown) (no (unknown) (unknown) Penicillins (units (un known) date) Allergy Unknown unknown) Verified 11/09/21 13:38 (unknown) (no (unknown) (unknown) Plt Count (units (unkn own) date) unknown) (unknown) (no (unknown) (unknown) Plt Count (units (unkn own) date) unknown) (unknown) (no (unknown) (unknown) Plt Count 147 L (units (unknown) date) unknown) (unknown) (no (unknown) (unknown) Potassium (units (unkn own) date) unknown) (unknown) (no (unknown) (unknown) Potassium 4.0 (units ( unknown) date) unknown) (unknown) (no (unknown) (unknown) Potassium (units (unkn own) date) unknown) (unknown) (no (unknown) (unknown) Presently, (units (unk nown) date) patient does unknown) complain of diffuse generalized pain. He does have (unknown) (no (unknown) (unknown) Prior Living (units (u nknown) date) Arrangements unknown) Assisted Living (unknown) (no (unknown) (unknown) Procalcitonin (units ( unknown) date) unknown) (unknown) (no (unknown) (unknown) Procalcitonin (units ( unknown) date) 0.08 unknown) (unknown) (no (unknown) (unknown) Procalcitonin (units ( unknown) date) unknown) (unknown) (no (unknown) (unknown) Prophylaxis (units (un known) date) unknown) (unknown) (no (unknown) (unknown) Provider: (units (unkn own) date) Justyna Keenan MD unknown) (unknown) (no (unknown) (unknown) Pulse Oximetry 96 (units (unknown) date) 100 99 unknown) (unknown) (no (unknown) (unknown) Pulse Oximetry 99 (units (unknown) date) unknown) (unknown) (no (unknown) (unknown) Pulse Oximetry 99 (units (unknown) date) 99 unknown) (unknown) (no (unknown) (unknown) Pulse Rate 69 (units ( unknown) date) unknown) (unknown) (no (unknown) (unknown) Pulse Rate 69 69 (units (unknown) date) unknown) (unknown) (no (unknown) (unknown) Pulse Rate 69 70 (units (unknown) date) 69 unknown) (unknown) (no (unknown) (unknown) RBC (units (unkno wn) date) unknown) (unknown) (no (unknown) (unknown) RBC (units (unkno wn) date) unknown) (unknown) (no (unknown) (unknown) RBC 2.97 L (units (unk nown) date) unknown) (unknown) (no (unknown) (unknown) RDW (units (unkno wn) date) unknown) (unknown) (no (unknown) (unknown) RDW (units (unkno wn) date) unknown) (unknown) (no (unknown) (unknown) RDW 19.0 H (units (unk nown) date) unknown) (unknown) (no (unknown) (unknown) Repeated falls (units (unknown) date) unknown) (unknown) (no (unknown) (unknown) Respiratory Rate (units (unknown) date) 18 unknown) (unknown) (no (unknown) (unknown) Respiratory Rate (units (unknown) date) 18 18 unknown) (unknown) (no (unknown) (unknown) Respiratory Rate (units (unknown) date) 19 10 L 12 unknown) (unknown) (no (unknown) (unknown) Result Diagrams: (units (unknown) date) unknown) (unknown) (no (unknown) (unknown) Review of Systems (units (unknown) date) unknown) (unknown) (no (unknown) (unknown) SARS-CoV-2 (PCR) (units (unknown) date) unknown) (unknown) (no (unknown) (unknown) SARS-CoV-2 (PCR) (units (unknown) date) Negative unknown) (unknown) (no (unknown) (unknown) SARS-CoV-2 (PCR) (units (unknown) date) unknown) (unknown) (no (unknown) (unknown) SKIN: Warm and (units (unknown) date) dry, without rash unknown) (unknown) (no (unknown) (unknown) Safety + (units (unkno wn) date) Behavioral: unknown) (unknown) (no (unknown) (unknown) Signed (units (unkno wn) date) By:<Electronically unknown) signed by Justyna Keenan MD> (unknown) (no (unknown) (unknown) Smoking Status (units (unknown) date) Unknown if ever unknown) smoked (unknown) (no (unknown) (unknown) Social History: (units (unknown) date) unknown) (unknown) (no (unknown) (unknown) Social history: (units (unknown) date) unknown) (unknown) (no (unknown) (unknown) Sodium (units (unkno wn) date) unknown) (unknown) (no (unknown) (unknown) Sodium 139 (units (unk nown) date) unknown) (unknown) (no (unknown) (unknown) Sodium (units (unkno wn) date) unknown) (unknown) (no (unknown) (unknown) Son reports (units (un known) date) patient has had unknown) more tearfulness and labile emotions over the last (unknown) (no (unknown) (unknown) Temperature (units (un known) date) unknown) (unknown) (no (unknown) (unknown) Temperature 97.7 (units (unknown) date) F unknown) (unknown) (no (unknown) (unknown) Temperature 97.7 (units (unknown) date) F unknown) (unknown) (no (unknown) (unknown) Threatened By a (units (unknown) date) Person unknown) (unknown) (no (unknown) (unknown) Time Spent With (units (unknown) date) Patient unknown) (unknown) (no (unknown) (unknown) Tobacco + (units (unkn own) date) Substance use: unknown) (unknown) (no (unknown) (unknown) Total Bilirubin (units (unknown) date) unknown) (unknown) (no (unknown) (unknown) Total Bilirubin (units (unknown) date) 0.9 unknown) (unknown) (no (unknown) (unknown) Total Bilirubin (units (unknown) date) unknown) (unknown) (no (unknown) (unknown) Total Creatine (units (unknown) date) Kinase unknown) (unknown) (no (unknown) (unknown) Total Creatine (units (unknown) date) Kinase 62 unknown) (unknown) (no (unknown) (unknown) Total Creatine (units (unknown) date) Kinase unknown) (unknown) (no (unknown) (unknown) Total Protein (units ( unknown) date) unknown) (unknown) (no (unknown) (unknown) Total Protein 6.6 (units (unknown) date) unknown) (unknown) (no (unknown) (unknown) Total Protein (units ( unknown) date) unknown) (unknown) (no (unknown) (unknown) Troponin I 0.088 (units (unknown) date) H unknown) (unknown) (no (unknown) (unknown) Troponin I (units (unk nown) date) unknown) (unknown) (no (unknown) (unknown) Troponin I 0.091 (units (unknown) date) H unknown) (unknown) (no (unknown) (unknown) Unspecified (units (un known) date) dementia without unknown) behavioral disturbance (unknown) (no (unknown) (unknown) Ur Culture (units (unk nown) date) Indicated? unknown) (unknown) (no (unknown) (unknown) Ur Culture (units (unk nown) date) Indicated? unknown) Specimen cultured (unknown) (no (unknown) (unknown) Ur Leukocyte (units (u nknown) date) Esterase unknown) (unknown) (no (unknown) (unknown) Ur Leukocyte (units (u nknown) date) Esterase Trace H unknown) (unknown) (no (unknown) (unknown) Ur Specific (units (un known) date) [place] unknown) (unknown) (no (unknown) (unknown) Ur Specific (units (un known) date) [place] 1.015 unknown) (unknown) (no (unknown) (unknown) Ur Squamous Epith (units (unknown) date) Cells unknown) (unknown) (no (unknown) (unknown) Ur Squamous Epith (units (unknown) date) Cells 1-5 /hpf unknown) (unknown) (no (unknown) (unknown) Urine Appearance (units (unknown) date) unknown) (unknown) (no (unknown) (unknown) Urine Appearance (units (unknown) date) Clear unknown) (unknown) (no (unknown) (unknown) Urine Bacteria (units (unknown) date) unknown) (unknown) (no (unknown) (unknown) Urine Bacteria (units (unknown) date) Few (2-10) H unknown) (unknown) (no (unknown) (unknown) Urine Bilirubin (units (unknown) date) unknown) (unknown) (no (unknown) (unknown) Urine Bilirubin (units (unknown) date) Negative unknown) (unknown) (no (unknown) (unknown) Urine Color (units (un known) date) unknown) (unknown) (no (unknown) (unknown) Urine Color (units (un known) date) Yellow unknown) (unknown) (no (unknown) (unknown) Urine Glucose (units ( unknown) date) (UA) unknown) (unknown) (no (unknown) (unknown) Urine Glucose (units ( unknown) date) (UA) Trace H unknown) (unknown) (no (unknown) (unknown) Urine Ketones (units ( unknown) date) unknown) (unknown) (no (unknown) (unknown) Urine Ketones (units ( unknown) date) Negative unknown) (unknown) (no (unknown) (unknown) Urine Nitrate (units ( unknown) date) unknown) (unknown) (no (unknown) (unknown) Urine Nitrate (units ( unknown) date) Negative unknown) (unknown) (no (unknown) (unknown) Urine Occult (units (u nknown) date) Blood unknown) (unknown) (no (unknown) (unknown) Urine Occult (units (u nknown) date) Blood Negative unknown) (unknown) (no (unknown) (unknown) Urine Protein (units ( unknown) date) unknown) (unknown) (no (unknown) (unknown) Urine Protein (units ( unknown) date) Trace H unknown) (unknown) (no (unknown) (unknown) Urine RBC (units (unkn own) date) unknown) (unknown) (no (unknown) (unknown) Urine RBC 0-1/hpf (units (unknown) date) unknown) (unknown) (no (unknown) (unknown) Urine (units (unkno wn) date) Urobilinogen unknown) (unknown) (no (unknown) (unknown) Urine (units (unkno wn) date) Urobilinogen 4.0 H unknown) (unknown) (no (unknown) (unknown) Urine WBC (units (unkn own) date) unknown) (unknown) (no (unknown) (unknown) Urine WBC 1-5/hpf (units (unknown) date) unknown) (unknown) (no (unknown) (unknown) Urine pH (units (unkno wn) date) unknown) (unknown) (no (unknown) (unknown) Urine pH 6.0 (units (u nknown) date) unknown) (unknown) (no (unknown) (unknown) Vital Signs (units (un known) date) unknown) (unknown) (no (unknown) (unknown) WBC (units (unkno wn) date) unknown) (unknown) (no (unknown) (unknown) WBC (units (unkno wn) date) unknown) (unknown) (no (unknown) (unknown) WBC 4.9 (units (unkno wn) date) unknown) (unknown) (no (unknown) (unknown) Will place on (units ( unknown) date) eyedrops. unknown) (unknown) (no (unknown) (unknown) [Embedded Image (units (unknown) date) Not Available] unknown) (unknown) (no (unknown) (unknown) acetaminophen 500 (units (unknown) date) mg capsule 500 mg unknown) PO Q4H PRN pain/fever 11/09/21 11/09/21 (unknown) (no (unknown) (unknown) acute distress (units (unknown) date) unknown) (unknown) (no (unknown) (unknown) allopurinol 100 (units (unknown) date) mg tablet 100 mg unknown) PO QAM 11/09/21 11/09/21 History (unknown) (no (unknown) (unknown) and he would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 (units (unkno wn) date) unknown) (unknown) (no (unknown) (unknown) PSYCH: Mood and (units (unknown) date) affect is within unknown) normal limits, judgment and insight are (unknown) (no (unknown) (unknown) PT (units (unkno wn) date) unknown) (unknown) (no (unknown) (unknown) PT (units (unkno wn) date) unknown) (unknown) (no (unknown) (unknown) PT 17.2 H (units (unkn own) date) unknown) (unknown) (no (unknown) (unknown) Paroxysmal (units (unk nown) date) atrial unknown) fibrillation (unknown) (no (unknown) (unknown) Patient does (units (u nknown) date) have a unknown) longstanding history of attempts at elopement. He has been (unknown) (no (unknown) (unknown) Patient is on (units (u nknown) date) Lasix 60 mg unknown) daily, along with his typical cardiac medications. No (unknown) (no (unknown) (unknown) Patient: (units (unkno wn) date) Roberto Harmon unknown) MR#: [id number] (unknown) (no (unknown) (unknown) Plt Count (units (unkn own) date) unknown) (unknown) (no (unknown) (unknown) Plt Count (units (unkn own) date) unknown) (unknown) (no (unknown) (unknown) Plt Count 147 L (units (unknown) date) unknown) (unknown) (no (unknown) (unknown) Potassium (units (unkn own) date) unknown) (unknown) (no (unknown) (unknown) Potassium 4.0 (units ( unknown) date) unknown) (unknown) (no (unknown) (unknown) Potassium (units (unkn own) date) unknown) (unknown) (no (unknown) (unknown) Procalcitonin (units ( unknown) date) unknown) (unknown) (no (unknown) (unknown) Procalcitonin (units ( unknown) date) 0.08 unknown) (unknown) (no (unknown) (unknown) Procalcitonin (units ( unknown) date) unknown) (unknown) (no (unknown) (unknown) Prophylaxis (units (un known) date) unknown) (unknown) (no (unknown) (unknown) Provider: (units (unkn own) date) Griffin Quiñones unknown) D.O. (unknown) (no (unknown) (unknown) RBC (units (unkno wn) date) unknown) (unknown) (no (unknown) (unknown) RBC (units (unkno wn) date) unknown) (unknown) (no (unknown) (unknown) RBC 2.97 L (units (unk nown) date) unknown) (unknown) (no (unknown) (unknown) RDW (units (unkno wn) date) unknown) (unknown) (no (unknown) (unknown) RDW (units (unkno wn) date) unknown) (unknown) (no (unknown) (unknown) RDW 19.0 H (units (unk nown) date) unknown) (unknown) (no (unknown) (unknown) Repeated falls (units (unknown) date) unknown) (unknown) (no (unknown) (unknown) Result Diagrams: (units (unknown) date) unknown) (unknown) (no (unknown) (unknown) SARS-CoV-2 (PCR) (units (unknown) date) unknown) (unknown) (no (unknown) (unknown) SARS-CoV-2 (PCR) (units (unknown) date) Negative unknown) (unknown) (no (unknown) (unknown) SARS-CoV-2 (PCR) (units (unknown) date) unknown) (unknown) (no (unknown) (unknown) SKIN: Warm and (units (unknown) date) dry, without rash unknown) (unknown) (no (unknown) (unknown) Signed By: (units (unk nown) date) unknown) (unknown) (no (unknown) (unknown) Smoking Status: (units (unknown) date) Unknown if ever unknown) smoked (unknown) (no (unknown) (unknown) Social History (units (unknown) date) (Reviewed unknown) 11/10/21 @ 05:36 by Griffin Quiñones DO) (unknown) (no (unknown) (unknown) Sodium (units (unkno wn) date) unknown) (unknown) (no (unknown) (unknown) Sodium 139 (units (unk nown) date) unknown) (unknown) (no (unknown) (unknown) Sodium (units (unkno wn) date) unknown) (unknown) (no (unknown) (unknown) Son reports (units (un known) date) patient has had unknown) more tearfulness and labile emotions over the last (unknown) (no (unknown) (unknown) Time Spent With (units (unknown) date) Patient unknown) (unknown) (no (unknown) (unknown) Total Bilirubin (units (unknown) date) unknown) (unknown) (no (unknown) (unknown) Total Bilirubin (units (unknown) date) 0.9 unknown) (unknown) (no (unknown) (unknown) Total Bilirubin (units (unknown) date) unknown) (unknown) (no (unknown) (unknown) Total Creatine (units (unknown) date) Kinase unknown) (unknown) (no (unknown) (unknown) Total Creatine (units (unknown) date) Kinase 62 unknown) (unknown) (no (unknown) (unknown) Total Creatine (units (unknown) date) Kinase unknown) (unknown) (no (unknown) (unknown) Total Protein (units ( unknown) date) unknown) (unknown) (no (unknown) (unknown) Total Protein (units ( unknown) date) 6.6 unknown) (unknown) (no (unknown) (unknown) Total Protein (units ( unknown) date) unknown) (unknown) (no (unknown) (unknown) Troponin I 0.088 (units (unknown) date) H unknown) (unknown) (no (unknown) (unknown) Troponin I (units (unk nown) date) unknown) (unknown) (no (unknown) (unknown) Troponin I 0.091 (units (unknown) date) H unknown) (unknown) (no (unknown) (unknown) Unspecified (units (un known) date) dementia without unknown) behavioral disturbance (unknown) (no (unknown) (unknown) Ur Culture (units (unk nown) date) Indicated? unknown) (unknown) (no (unknown) (unknown) Ur Culture (units (unk nown) date) Indicated? unknown) Specimen cultured (unknown) (no (unknown) (unknown) Ur Leukocyte (units (u nknown) date) Esterase unknown) (unknown) (no (unknown) (unknown) Ur Leukocyte (units (u nknown) date) Esterase Trace H unknown) (unknown) (no (unknown) (unknown) Ur Specific (units (un known) date) Steele unknown) (unknown) (no (unknown) (unknown) Ur Specific (units (un known) date) Steele 1.015 unknown) (unknown) (no (unknown) (unknown) Ur Squamous (units (un known) date) Epith Cells unknown) (unknown) (no (unknown) (unknown) Ur Squamous (units (un known) date) Epith Cells 1-5 unknown) /hpf (unknown) (no (unknown) (unknown) Urine Appearance (units (unknown) date) unknown) (unknown) (no (unknown) (unknown) Urine Appearance (units (unknown) date) Clear unknown) (unknown) (no (unknown) (unknown) Urine Bacteria (units (unknown) date) unknown) (unknown) (no (unknown) (unknown) Urine Bacteria (units (unknown) date) Few (2-10) H unknown) (unknown) (no (unknown) (unknown) Urine Bilirubin (units (unknown) date) unknown) (unknown) (no (unknown) (unknown) Urine Bilirubin (units (unknown) date) Negative unknown) (unknown) (no (unknown) (unknown) Urine Color (units (un known) date) unknown) (unknown) (no (unknown) (unknown) Urine Color (units (un known) date) Yellow unknown) (unknown) (no (unknown) (unknown) Urine Glucose (units ( unknown) date) (UA) unknown) (unknown) (no (unknown) (unknown) Urine Glucose (units ( unknown) date) (UA) Trace H unknown) (unknown) (no (unknown) (unknown) Urine Ketones (units ( unknown) date) unknown) (unknown) (no (unknown) (unknown) Urine Ketones (units ( unknown) date) Negative unknown) (unknown) (no (unknown) (unknown) Urine Nitrate (units ( unknown) date) unknown) (unknown) (no (unknown) (unknown) Urine Nitrate (units ( unknown) date) Negative unknown) (unknown) (no (unknown) (unknown) Urine Occult (units (u nknown) date) Blood unknown) (unknown) (no (unknown) (unknown) Urine Occult (units (u nknown) date) Blood Negative unknown) (unknown) (no (unknown) (unknown) Urine Protein (units ( unknown) date) unknown) (unknown) (no (unknown) (unknown) Urine Protein (units ( unknown) date) Trace H unknown) (unknown) (no (unknown) (unknown) Urine RBC (units (unkn own) date) unknown) (unknown) (no (unknown) (unknown) Urine RBC (units (unkn own) date) 0-1/hpf unknown) (unknown) (no (unknown) (unknown) Urine (units (unkno wn) date) Urobilinogen unknown) (unknown) (no (unknown) (unknown) Urine (units (unkno wn) date) Urobilinogen 4.0 unknown) H (unknown) (no (unknown) (unknown) Urine WBC (units (unkn own) date) unknown) (unknown) (no (unknown) (unknown) Urine WBC (units (unkn own) date) 1-5/hpf unknown) (unknown) (no (unknown) (unknown) Urine pH (units (unkno wn) date) unknown) (unknown) (no (unknown) (unknown) Urine pH 6.0 (units (u nknown) date) unknown) (unknown) (no (unknown) (unknown) Vital Signs (units (un known) date) unknown) (unknown) (no (unknown) (unknown) WBC (units (unkno wn) date) unknown) (unknown) (no (unknown) (unknown) WBC (units (unkno wn) date) unknown) (unknown) (no (unknown) (unknown) WBC 4.9 (units (unkno wn) date) unknown) (unknown) (no (unknown) (unknown) Will place on (units ( unknown) date) eyedrops. unknown) (unknown) (no (unknown) (unknown) [Embedded Image (units (unknown) date) Not Available] unknown) (unknown) (no (unknown) (unknown) acute distress (units (unknown) date) unknown) (unknown) (no (unknown) (unknown) bedtime to 12.5 (units (unknown) date) mg scheduled unknown) every 6 hours. At this time, his fast score is (unknown) (no (unknown) (unknown) been swollen for (units (unknown) date) months. unknown) (unknown) (no (unknown) (unknown) bruises/scabs on (units (unknown) date) bilateral upper unknown) extremities, 2+ edema to the lower extremities (unknown) (no (unknown) (unknown) carotids no (units (un known) date) bruits unknown) (unknown) (no (unknown) (unknown) clonazepam, (units (un known) date) paroxetine, and unknown) quetiapine 25 mg bedtime. He also receives (unknown) (no (unknown) (unknown) consider (units (unkno wn) date) titrating this unknown) up. Will defer that to his PCP. (unknown) (no (unknown) (unknown) does have (units (unkn own) date) elevated unknown) troponin, but no focal cardiac symptoms. He does have some (unknown) (no (unknown) (unknown) dysregulation. (units (unknown) date) There is no unknown) obvious infection. Urine is being cultured. He (unknown) (no (unknown) (unknown) extraocular (units (un known) date) movements intact, unknown) sclerae anicteric, nares patent, oropharynx (unknown) (no (unknown) (unknown) fair, mild (units (unk nown) date) erythema around unknown) the left eye with injected sclera (unknown) (no (unknown) (unknown) generalized (units (un known) date) pain, likely unknown) secondary to frequent falls. Will place him on (unknown) (no (unknown) (unknown) household (units (unkn own) date) members: family unknown) (unknown) (no (unknown) (unknown) impaired (units (unkno wn) date) unknown) (unknown) (no (unknown) (unknown) in the locked (units ( unknown) date) memory care unit unknown) as a result. He has been on as needed (unknown) (no (unknown) (unknown) organomegaly or (units (unknown) date) masses unknown) appreciated (unknown) (no (unknown) (unknown) pursued with (units (u nknown) date) caution. unknown) Additionally, we will adjust his Seroquel from 25 mg at (unknown) (no (unknown) (unknown) reveals an intact (units (unknown) date) soft and hard unknown) palate with moist mucous membranes, dentition is (unknown) (no (unknown) (unknown) scheduled Tylenol (units (unknown) date) for now. Consider unknown) a low-dose fentanyl patch if the Tylenol is (unknown) (no (unknown) (unknown) still well above (units (unknown) date) 7, and he would unknown) not be a candidate for hospice. (unknown) (no (unknown) (unknown) today; this time (units (unknown) date) is exclusive of unknown) procedural time. (unknown) (no (unknown) (unknown) trazodone at (units (u nknown) date) bedtime. unknown) Uncertain as to what has led to his behavioral (unknown) (no (unknown) (unknown) will hold. Would (units (unknown) date) recommend to unknown) discontinue this at discharge. (unknown) (no (unknown) (unknown) year. Likely (units (u nknown) date) related to his unknown) dementia. He is on Paxil at baseline. Could Result panel 12 (unknown) (no date) (unknown) (unknown) 0 /uL (unkn own) (unknown) (no date) (unknown) (unknown) 0.7 % (unkn own) (unknown) (no date) (unknown) (unknown) 10.3 g/dL (unkn own) (unknown) (no date) (unknown) (unknown) 154 X10 3/uL (unkn own) (unknown) (no date) (unknown) (unknown) 19.2 % (unkn own) (unknown) (no date) (unknown) (unknown) 200 /uL (unkn own) (unknown) (no date) (unknown) (unknown) 2000 /uL (unkn own) (unknown) (no date) (unknown) (unknown) 2100 /uL (unkn own) (unknown) (no date) (unknown) (unknown) 3.36 X10 6/uL (unkn own) (unknown) (no date) (unknown) (unknown) 30.5 PG (unkn own) (unknown) (no date) (unknown) (unknown) 31.9 % (unkn own) (unknown) (no date) (unknown) (unknown) 32.2 % (unkn own) (unknown) (no date) (unknown) (unknown) 4.0 % (unkn own) (unknown) (no date) (unknown) (unknown) 4.7 X10 3/uL (unkn own) (unknown) (no date) (unknown) (unknown) 400 /uL (unkn own) (unknown) (no date) (unknown) (unknown) 42.7 % (unkn own) (unknown) (no date) (unknown) (unknown) 44.2 % (unkn own) (unknown) (no date) (unknown) (unknown) 8.4 % (unkn own) (unknown) (no date) (unknown) (unknown) 94.9 fL (unkn own) Result panel 13 (unknown) (no date) (unknown) (unknown) 1.20 mg/dL (unkn own) (unknown) (no date) (unknown) (unknown) 104 mmol/L (unkn own) (unknown) (no date) (unknown) (unknown) 110 mg/dL (unkn own) (unknown) (no date) (unknown) (unknown) 141 mmol/L (unkn own) (unknown) (no date) (unknown) (unknown) 25.0 (units unknown) (unknown) (unknown) (no date) (unknown) (unknown) 30 mg/dL (unkn own) (unknown) (no date) (unknown) (unknown) 30 mmol/L (unkn own) (unknown) (no date) (unknown) (unknown) 4.2 mmol/L (unkn own) (unknown) (no date) (unknown) (unknown) 58 mL/min (unkn own) (unknown) (no date) (unknown) (unknown) 8.9 mg/dL (unkn own) Result panel 14 (unknown) (no date) (unknown) (unknown) No growth. (units (un known) unknown) Result panel 15 (unknown) (no date) (unknown) (unknown) (no value) (units (un known) unknown) (unknown) (no date) (unknown) (unknown) NO GROWTH (units (unk nown) AFTER 24 unknown) HOURS Result panel 16 (unknown) (no date) (unknown) (unknown) (no value) (units (un known) unknown) (unknown) (no date) (unknown) (unknown) NO GROWTH (units (unk nown) AFTER 24 unknown) HOURS Result panel 17 (unknown) (no (unknown) (unknown) (no value) (units (unk nown) date) unknown) (unknown) (no (unknown) (unknown) Date of Service: (units (unknown) date) 11/09/21 unknown) (unknown) (no (unknown) (unknown) (no value) (units (unk nown) date) unknown) (unknown) (no (unknown) (unknown) 11/10/21 06:10 (units (unknown) date) unknown) (unknown) (no (unknown) (unknown) 11/10/21 1408 (units ( unknown) date) unknown) (unknown) (no (unknown) (unknown) [facility] (units (unknown) date) [address] unknown) [place] [address] (unknown) (no (unknown) (unknown) Laboratory (units (unk nown) date) Results - last 24 unknown) hr (unknown) (no (unknown) (unknown) Progress Note (units ( unknown) date) unknown) (unknown) (no (unknown) (unknown) (no value) (units (unk nown) date) unknown) (unknown) (no (unknown) (unknown) 11/09/21 (units (unkno wn) date) unknown) (unknown) (no (unknown) (unknown) 11/09/21 (units (unkno wn) date) 11/09/21 11/09/21 unknown) (unknown) (no (unknown) (unknown) 11:00 11:00 (units (un known) date) 11:00 unknown) (unknown) (no (unknown) (unknown) 11:00 13:06 (units (un known) date) 13:42 unknown) (unknown) (no (unknown) (unknown) 14:37 (units (unkno wn) date) unknown) (unknown) (no (unknown) (unknown) echocardiogram (units (unknown) date) is in our system. unknown) Monitor diuresis. Son notes his legs have (unknown) (no (unknown) (unknown) goals of care, (units (unknown) date) will not pursue unknown) this any further at this time. Resume his usual (unknown) (no (unknown) (unknown) have elevated (units ( unknown) date) troponin, but no unknown) focal cardiac symptoms. He does have some (unknown) (no (unknown) (unknown) home medication (units (unknown) date) unknown) (unknown) (no (unknown) (unknown) memory care unit (units (unknown) date) at [facility] 24-48 unknown) hours (unknown) (no (unknown) (unknown) (past 8 hours): (units (unknown) date) unknown) (unknown) (no (unknown) (unknown) -adjust his (units (un known) date) Seroquel from 25 unknown) mg at bedtime to 12.5 mg scheduled every 6 hours (unknown) (no (unknown) (unknown) -continue (units (unkn own) date) eyedrops. unknown) (unknown) (no (unknown) (unknown) -continue (units (unkn own) date) scheduled Tylenol unknown) (unknown) (no (unknown) (unknown) -fast score is (units (unknown) date) still well above unknown) 7, and he would not be a candidate for hospice. (unknown) (no (unknown) (unknown) 1. 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 Coronary (units (un known) date) artery disease unknown) (unknown) (no (unknown) (unknown) 3. Suspected (units (u nknown) date) chronic unknown) congestive heart failure (unknown) (no (unknown) (unknown) 4. Left eye (units (un known) date) conjunctivitis unknown) (unknown) (no (unknown) (unknown) 5. Paroxysmal (units ( unknown) date) atrial unknown) fibrillation (unknown) (no (unknown) (unknown) 6. Depression (units ( unknown) date) unknown) (unknown) (no (unknown) (unknown) ABD: Soft, (units (unkn own) date) nontender, unknown) nondistended, bowel sounds present in all 4 quadrants, no (unknown) (no (unknown) (unknown) ALT (units (unkno wn) date) unknown) (unknown) (no (unknown) (unknown) ALT 10 (units (unkno wn) date) unknown) (unknown) (no (unknown) (unknown) ALT (units (unkno wn) date) unknown) (unknown) (no (unknown) (unknown) AST (units (unkno wn) date) unknown) (unknown) (no (unknown) (unknown) AST 20 (units (unkno wn) date) unknown) (unknown) (no (unknown) (unknown) AST (units (unkno wn) date) unknown) (unknown) (no (unknown) (unknown) Adjustment (units (unk nown) date) disorder with unknown) depressed mood (unknown) (no (unknown) (unknown) Admit under (units (unk nown) date) observation unknown) status. It is hoped to be able to discharge back to the (unknown) (no (unknown) (unknown) Age/Sex: 89 / M (units (unknown) date) unknown) (unknown) (no (unknown) (unknown) Albumin (units (unkno wn) date) unknown) (unknown) (no (unknown) (unknown) Albumin 3.4 L (units ( unknown) date) unknown) (unknown) (no (unknown) (unknown) Albumin (units (unkno wn) date) unknown) (unknown) (no (unknown) (unknown) Albumin/Globulin (units (unknown) date) Ratio unknown) (unknown) (no (unknown) (unknown) Albumin/Globulin (units (unknown) date) Ratio 1.1 unknown) (unknown) (no (unknown) (unknown) Albumin/Globulin (units (unknown) date) Ratio unknown) (unknown) (no (unknown) (unknown) Alkaline (units (unkno wn) date) Phosphatase unknown) (unknown) (no (unknown) (unknown) Alkaline (units (unkno wn) date) Phosphatase 131 H unknown) (unknown) (no (unknown) (unknown) Alkaline (units (unkno wn) date) Phosphatase unknown) (unknown) (no (unknown) (unknown) Assessment + (units (u nknown) date) Plan unknown) (unknown) (no (unknown) (unknown) Assessment + (units (u nknown) date) Plan narrative: unknown) (unknown) (no (unknown) (unknown) BUN (units (unkno wn) date) unknown) (unknown) (no (unknown) (unknown) BUN 27 H (units (unkno wn) date) unknown) (unknown) (no (unknown) (unknown) BUN (units (unkno wn) date) unknown) (unknown) (no (unknown) (unknown) BUN/Creatinine (units (unknown) date) Ratio unknown) (unknown) (no (unknown) (unknown) BUN/Creatinine (units (unknown) date) Ratio 19.6 unknown) (unknown) (no (unknown) (unknown) BUN/Creatinine (units (unknown) date) Ratio unknown) (unknown) (no (unknown) (unknown) Baso # (Auto) (units ( unknown) date) unknown) (unknown) (no (unknown) (unknown) Baso # (Auto) (units ( unknown) date) unknown) (unknown) (no (unknown) (unknown) Baso # (Auto) 0 (units (unknown) date) unknown) (unknown) (no (unknown) (unknown) Baso % (Auto) (units ( unknown) date) unknown) (unknown) (no (unknown) (unknown) Baso % (Auto) (units ( unknown) date) unknown) (unknown) (no (unknown) (unknown) Baso % (Auto) (units ( unknown) date) 0.5 unknown) (unknown) (no (unknown) (unknown) CHEST: (units (unkno wn) date) Respiratory unknown) excursions symmetric, clear to auscultation bilaterally (unknown) (no (unknown) (unknown) CK-MB (CK-2) (units (u nknown) date) unknown) (unknown) (no (unknown) (unknown) CK-MB (CK-2) TNP (units (unknown) date) unknown) (unknown) (no (unknown) (unknown) CK-MB (CK-2) (units (u nknown) date) unknown) (unknown) (no (unknown) (unknown) CK-MB (CK-2) Rel (units (unknown) date) Index unknown) (unknown) (no (unknown) (unknown) CK-MB (CK-2) Rel (units (unknown) date) Index TNP unknown) (unknown) (no (unknown) (unknown) CK-MB (CK-2) Rel (units (unknown) date) Index unknown) (unknown) (no (unknown) (unknown) CV: Regular rate (units (unknown) date) and rhythm, no unknown) murmurs, rubs, gallops, PMI nondisplaced (unknown) (no (unknown) (unknown) Calcium (units (unkno wn) date) unknown) (unknown) (no (unknown) (unknown) Calcium 8.8 (units (un known) date) unknown) (unknown) (no (unknown) (unknown) Calcium (units (unkno wn) date) unknown) (unknown) (no (unknown) (unknown) Carbon Dioxide (units (unknown) date) unknown) (unknown) (no (unknown) (unknown) Carbon Dioxide (units (unknown) date) 30 unknown) (unknown) (no (unknown) (unknown) Carbon Dioxide (units (unknown) date) unknown) (unknown) (no (unknown) (unknown) Chloride (units (unkno wn) date) unknown) (unknown) (no (unknown) (unknown) Chloride 104 (units (u nknown) date) unknown) (unknown) (no (unknown) (unknown) Chloride (units (unkno wn) date) unknown) (unknown) (no (unknown) (unknown) Code status (units (un known) date) unknown) (unknown) (no (unknown) (unknown) Creatinine (units (unk nown) date) unknown) (unknown) (no (unknown) (unknown) Creatinine 1.38 (units (unknown) date) H unknown) (unknown) (no (unknown) (unknown) Creatinine (units (unk nown) date) unknown) (unknown) (no (unknown) (unknown) Critical Care (units ( unknown) date) time: unknown) (unknown) (no (unknown) (unknown) DNR/DNI (units (unkno wn) date) unknown) (unknown) (no (unknown) (unknown) : 1930 (units (unknown) date) Acct:[id number] unknown) (unknown) (no (unknown) (unknown) Date Patient (units (u nknown) date) Seen: 11/10/21 unknown) (unknown) (no (unknown) (unknown) Disorientation, (units (unknown) date) unspecified unknown) (unknown) (no (unknown) (unknown) Disposition (units (un known) date) unknown) (unknown) (no (unknown) (unknown) EXTR: Warm, well (units (unknown) date) perfused, no unknown) clubbing/cyanosis /edema, multiple new and old (unknown) (no (unknown) (unknown) Eos # (Auto) (units (u nknown) date) unknown) (unknown) (no (unknown) (unknown) Eos # (Auto) (units (u nknown) date) unknown) (unknown) (no (unknown) (unknown) Eos # (Auto) 100 (units (unknown) date) unknown) (unknown) (no (unknown) (unknown) Eos % (Auto) (units (u nknown) date) unknown) (unknown) (no (unknown) (unknown) Eos % (Auto) (units (u nknown) date) unknown) (unknown) (no (unknown) (unknown) Eos % (Auto) 1.6 (units (unknown) date) L unknown) (unknown) (no (unknown) (unknown) Essential (units (unkn own) date) hypertension unknown) (unknown) (no (unknown) (unknown) Estimated GFR (units ( unknown) date) unknown) (unknown) (no (unknown) (unknown) Estimated GFR 49 (units (unknown) date) L unknown) (unknown) (no (unknown) (unknown) Estimated GFR (units ( unknown) date) unknown) (unknown) (no (unknown) (unknown) Exam (units (unkno wn) date) unknown) (unknown) (no (unknown) (unknown) Exam Narrative: (units (unknown) date) unknown) (unknown) (no (unknown) (unknown) GEN: Elderly (units (u nknown) date) male, speaks with unknown) accented [place]alese, Alert and oriented x1, no (unknown) (no (unknown) (unknown) Globulin (units (unkno wn) date) unknown) (unknown) (no (unknown) (unknown) Globulin 3.2 (units (u nknown) date) unknown) (unknown) (no (unknown) (unknown) Globulin (units (unkno wn) date) unknown) (unknown) (no (unknown) (unknown) Glucose (units (unkno wn) date) unknown) (unknown) (no (unknown) (unknown) Glucose 111 H (units ( unknown) date) unknown) (unknown) (no (unknown) (unknown) Glucose (units (unkno wn) date) unknown) (unknown) (no (unknown) (unknown) Gout, (units (unkno wn) date) unspecified unknown) (unknown) (no (unknown) (unknown) HEENT: (units (unkno wn) date) Normocephalic, unknown) face symmetric, pupils equal round reactive to light, (unknown) (no (unknown) (unknown) Hct (units (unkno wn) date) unknown) (unknown) (no (unknown) (unknown) Hct (units (unkno wn) date) unknown) (unknown) (no (unknown) (unknown) Hct 27.7 L (units (unk nown) date) unknown) (unknown) (no (unknown) (unknown) He does have an (units (unknown) date) elevated troponin unknown) but no focal ischemic symptoms. Given overall (unknown) (no (unknown) (unknown) He is on (units (unkno wn) date) warfarin at unknown) baseline. Given his frequent and multiple falls, warfarin (unknown) (no (unknown) (unknown) Hgb (units (unkno wn) date) unknown) (unknown) (no (unknown) (unknown) Hgb (units (unkno wn) date) unknown) (unknown) (no (unknown) (unknown) Hgb 9.1 L (units (unkn own) date) unknown) (unknown) (no (unknown) (unknown) I spent a total (units (unknown) date) of [] minutes of unknown) critical care time on this patient's care (unknown) (no (unknown) (unknown) INR (units (unkno wn) date) unknown) (unknown) (no (unknown) (unknown) INR (units (unkno wn) date) unknown) (unknown) (no (unknown) (unknown) INR 1.5 H (units (unkn own) date) unknown) (unknown) (no (unknown) (unknown) Interval (units (unkno wn) date) history: unknown) (unknown) (no (unknown) (unknown) 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 (unknown) (no (unknown) (unknown) Labs (units (unkno wn) date) unknown) (unknown) (no (unknown) (unknown) Labs: (units (unkno wn) date) unknown) (unknown) (no (unknown) (unknown) Lactate (units (unkno wn) date) unknown) (unknown) (no (unknown) (unknown) Lactate (units (unkno wn) date) unknown) (unknown) (no (unknown) (unknown) Lactate 0.9 (units (un known) date) unknown) (unknown) (no (unknown) (unknown) Low Maribel score (units (unknown) date) unknown) (unknown) (no (unknown) (unknown) Lymph # (Auto) (units (unknown) date) unknown) (unknown) (no (unknown) (unknown) Lymph # (Auto) (units (unknown) date) unknown) (unknown) (no (unknown) (unknown) Lymph # (Auto) (units (unknown) date) 700 L unknown) (unknown) (no (unknown) (unknown) Lymph % (Auto) (units (unknown) date) unknown) (unknown) (no (unknown) (unknown) Lymph % (Auto) (units (unknown) date) unknown) (unknown) (no (unknown) (unknown) Lymph % (Auto) (units (unknown) date) 15.1 L unknown) (unknown) (no (unknown) (unknown) MCH (units (unkno wn) date) unknown) (unknown) (no (unknown) (unknown) MCH (units (unkno wn) date) unknown) (unknown) (no (unknown) (unknown) MCH 30.8 (units (unkno wn) date) unknown) (unknown) (no (unknown) (unknown) MCHC (units (unkno wn) date) unknown) (unknown) (no (unknown) (unknown) MCHC (units (unkno wn) date) unknown) (unknown) (no (unknown) (unknown) MCHC 33.0 (units (unkn own) date) unknown) (unknown) (no (unknown) (unknown) MCV (units (unkno wn) date) unknown) (unknown) (no (unknown) (unknown) MCV (units (unkno wn) date) unknown) (unknown) (no (unknown) (unknown) MCV 93.2 (units (unkno wn) date) unknown) (unknown) (no (unknown) (unknown) Major depressive (units (unknown) date) disorder unknown) (unknown) (no (unknown) (unknown) Medical History (units (unknown) date) (Reviewed unknown) 11/10/21 @ 05:36 by Griffin Quiñones DO) (unknown) (no (unknown) (unknown) [place] # (Auto) (units ( unknown) date) unknown) (unknown) (no (unknown) (unknown) [place] # (Auto) (units ( unknown) date) unknown) (unknown) (no (unknown) (unknown) [place] # (Auto) (units ( unknown) date) 300 unknown) (unknown) (no (unknown) (unknown) [place] % (Auto) (units ( unknown) date) unknown) (unknown) (no (unknown) (unknown) [place] % (Auto) (units ( unknown) date) unknown) (unknown) (no (unknown) (unknown) [place] % (Auto) (units ( unknown) date) 6.2 unknown) (unknown) (no (unknown) (unknown) NECK: Supple, no (units (unknown) date) lymphadenopathy, unknown) thyroid without enlargement or nodularity, (unknown) (no (unknown) (unknown) NEURO: Alert and (units (unknown) date) oriented x1, unknown) nonfocal (unknown) (no (unknown) (unknown) Narrative (units (unkn own) date) unknown) (unknown) (no (unknown) (unknown) Neut # (Auto) (units ( unknown) date) unknown) (unknown) (no (unknown) (unknown) Neut # (Auto) (units ( unknown) date) unknown) (unknown) (no (unknown) (unknown) Neut # (Auto) (units ( unknown) date) 3800 unknown) (unknown) (no (unknown) (unknown) Neut % (Auto) (units ( unknown) date) unknown) (unknown) (no (unknown) (unknown) Neut % (Auto) (units ( unknown) date) unknown) (unknown) (no (unknown) (unknown) Neut % (Auto) (units ( unknown) date) 76.6 H unknown) (unknown) (no (unknown) (unknown) Objective (units (unkn own) date) unknown) (unknown) (no (unknown) (unknown) Oxygen Delivery (units (unknown) date) Method Room Air unknown) (unknown) (no (unknown) (unknown) Oxygen Flow Rate (units (unknown) date) 0 unknown) (unknown) (no (unknown) (unknown) PFSH (units (unkno wn) date) unknown) (unknown) (no (unknown) (unknown) PSYCH: Mood and (units (unknown) date) affect is within unknown) normal limits, judgment and insight are (unknown) (no (unknown) (unknown) PT (units (unkno wn) date) unknown) (unknown) (no (unknown) (unknown) PT (units (unkno wn) date) unknown) (unknown) (no (unknown) (unknown) PT 17.2 H (units (unkn own) date) unknown) (unknown) (no (unknown) (unknown) Paroxysmal (units (unk nown) date) atrial unknown) fibrillation (unknown) (no (unknown) (unknown) Patient does (units (u nknown) date) have a unknown) longstanding history of attempts at elopement. He has been (unknown) (no (unknown) (unknown) Patient is on (units (u nknown) date) Lasix 60 mg unknown) daily, along with his typical cardiac medications. No (unknown) (no (unknown) (unknown) Patient sleeping (units (unknown) date) but awakens upon unknown) my entering the room. He is pleasantly (unknown) (no (unknown) (unknown) Patient: (units (unkno wn) date) Roberto Harmon unknown) MR#: [id number] (unknown) (no (unknown) (unknown) Plt Count (units (unkn own) date) unknown) (unknown) (no (unknown) (unknown) Plt Count (units (unkn own) date) unknown) (unknown) (no (unknown) (unknown) Plt Count 147 L (units (unknown) date) unknown) (unknown) (no (unknown) (unknown) Potassium (units (unkn own) date) unknown) (unknown) (no (unknown) (unknown) Potassium 4.0 (units ( unknown) date) unknown) (unknown) (no (unknown) (unknown) Potassium (units (unkn own) date) unknown) (unknown) (no (unknown) (unknown) Procalcitonin (units ( unknown) date) unknown) (unknown) (no (unknown) (unknown) Procalcitonin (units ( unknown) date) 0.08 unknown) (unknown) (no (unknown) (unknown) Procalcitonin (units ( unknown) date) unknown) (unknown) (no (unknown) (unknown) Prophylaxis (units (un known) date) unknown) (unknown) (no (unknown) (unknown) Provider: (units (unkn own) date) Griffin Quiñones unknown) D.O. (unknown) (no (unknown) (unknown) RBC (units (unkno wn) date) unknown) (unknown) (no (unknown) (unknown) RBC (units (unkno wn) date) unknown) (unknown) (no (unknown) (unknown) RBC 2.97 L (units (unk nown) date) unknown) (unknown) (no (unknown) (unknown) RDW (units (unkno wn) date) unknown) (unknown) (no (unknown) (unknown) RDW (units (unkno wn) date) unknown) (unknown) (no (unknown) (unknown) RDW 19.0 H (units (unk nown) date) unknown) (unknown) (no (unknown) (unknown) Repeated falls (units (unknown) date) unknown) (unknown) (no (unknown) (unknown) Result Diagrams: (units (unknown) date) unknown) (unknown) (no (unknown) (unknown) SARS-CoV-2 (PCR) (units (unknown) date) unknown) (unknown) (no (unknown) (unknown) SARS-CoV-2 (PCR) (units (unknown) date) Negative unknown) (unknown) (no (unknown) (unknown) SARS-CoV-2 (PCR) (units (unknown) date) unknown) (unknown) (no (unknown) (unknown) SKIN: Warm and (units (unknown) date) dry, without rash unknown) (unknown) (no (unknown) (unknown) Signed (units (unkno wn) date) By:<Electronicall unknown) y signed by Griffin Quiñones D.O.> (unknown) (no (unknown) (unknown) Smoking Status: (units (unknown) date) Unknown if ever unknown) smoked (unknown) (no (unknown) (unknown) Social History (units (unknown) date) (Reviewed unknown) 11/10/21 @ 05:36 by Griffin Quiñones DO) (unknown) (no (unknown) (unknown) Sodium (units (unkno wn) date) unknown) (unknown) (no (unknown) (unknown) Sodium 139 (units (unk nown) date) unknown) (unknown) (no (unknown) (unknown) Sodium (units (unkno wn) date) unknown) (unknown) (no (unknown) (unknown) Son reports (units (un known) date) patient has had unknown) more tearfulness and labile emotions over the last (unknown) (no (unknown) (unknown) Subjective (units (unk nown) date) unknown) (unknown) (no (unknown) (unknown) Time Patient (units (u nknown) date) Seen: 14:04 unknown) (unknown) (no (unknown) (unknown) Time Spent With (units (unknown) date) Patient unknown) (unknown) (no (unknown) (unknown) Total Bilirubin (units (unknown) date) unknown) (unknown) (no (unknown) (unknown) Total Bilirubin (units (unknown) date) 0.9 unknown) (unknown) (no (unknown) (unknown) Total Bilirubin (units (unknown) date) unknown) (unknown) (no (unknown) (unknown) Total Creatine (units (unknown) date) Kinase unknown) (unknown) (no (unknown) (unknown) Total Creatine (units (unknown) date) Kinase 62 unknown) (unknown) (no (unknown) (unknown) Total Creatine (units (unknown) date) Kinase unknown) (unknown) (no (unknown) (unknown) Total Protein (units ( unknown) date) unknown) (unknown) (no (unknown) (unknown) Total Protein (units ( unknown) date) 6.6 unknown) (unknown) (no (unknown) (unknown) Total Protein (units ( unknown) date) unknown) (unknown) (no (unknown) (unknown) Troponin I 0.088 (units (unknown) date) H unknown) (unknown) (no (unknown) (unknown) Troponin I (units (unk nown) date) unknown) (unknown) (no (unknown) (unknown) Troponin I 0.091 (units (unknown) date) H unknown) (unknown) (no (unknown) (unknown) Unspecified (units (un known) date) dementia without unknown) behavioral disturbance (unknown) (no (unknown) (unknown) Ur Culture (units (unk nown) date) Indicated? unknown) (unknown) (no (unknown) (unknown) Ur Culture (units (unk nown) date) Indicated? unknown) Specimen cultured (unknown) (no (unknown) (unknown) Ur Leukocyte (units (u nknown) date) Esterase unknown) (unknown) (no (unknown) (unknown) Ur Leukocyte (units (u nknown) date) Esterase Trace H unknown) (unknown) (no (unknown) (unknown) Ur Specific (units (un known) date) [place] unknown) (unknown) (no (unknown) (unknown) Ur Specific (units (un known) date) [place] 1.015 unknown) (unknown) (no (unknown) (unknown) Ur Squamous (units (un known) date) Epith Cells unknown) (unknown) (no (unknown) (unknown) Ur Squamous (units (un known) date) Epith Cells 1-5 unknown) /hpf (unknown) (no (unknown) (unknown) Urine Appearance (units (unknown) date) unknown) (unknown) (no (unknown) (unknown) Urine Appearance (units (unknown) date) Clear unknown) (unknown) (no (unknown) (unknown) Urine Bacteria (units (unknown) date) unknown) (unknown) (no (unknown) (unknown) Urine Bacteria (units (unknown) date) Few (2-10) H unknown) (unknown) (no (unknown) (unknown) Urine Bilirubin (units (unknown) date) unknown) (unknown) (no (unknown) (unknown) Urine Bilirubin (units (unknown) date) Negative unknown) (unknown) (no (unknown) (unknown) Urine Color (units (un known) date) unknown) (unknown) (no (unknown) (unknown) Urine Color (units (un known) date) Yellow unknown) (unknown) (no (unknown) (unknown) Urine Glucose (units ( unknown) date) (UA) unknown) (unknown) (no (unknown) (unknown) Urine Glucose (units ( unknown) date) (UA) Trace H unknown) (unknown) (no (unknown) (unknown) Urine Ketones (units ( unknown) date) unknown) (unknown) (no (unknown) (unknown) Urine Ketones (units ( unknown) date) Negative unknown) (unknown) (no (unknown) (unknown) Urine Nitrate (units ( unknown) date) unknown) (unknown) (no (unknown) (unknown) Urine Nitrate (units ( unknown) date) Negative unknown) (unknown) (no (unknown) (unknown) Urine Occult (units (u nknown) date) Blood unknown) (unknown) (no (unknown) (unknown) Urine Occult (units (u nknown) date) Blood Negative unknown) (unknown) (no (unknown) (unknown) Urine Protein (units ( unknown) date) unknown) (unknown) (no (unknown) (unknown) Urine Protein (units ( unknown) date) Trace H unknown) (unknown) (no (unknown) (unknown) Urine RBC (units (unkn own) date) unknown) (unknown) (no (unknown) (unknown) Urine RBC (units (unkn own) date) 0-1/hpf unknown) (unknown) (no (unknown) (unknown) Urine (units (unkno wn) date) Urobilinogen unknown) (unknown) (no (unknown) (unknown) Urine (units (unkno wn) date) Urobilinogen 4.0 unknown) H (unknown) (no (unknown) (unknown) Urine WBC (units (unkn own) date) unknown) (unknown) (no (unknown) (unknown) Urine WBC (units (unkn own) date) 1-5/hpf unknown) (unknown) (no (unknown) (unknown) Urine pH (units (unkno wn) date) unknown) (unknown) (no (unknown) (unknown) Urine pH 6.0 (units (u nknown) date) unknown) (unknown) (no (unknown) (unknown) Vital Signs (units (un known) date) unknown) (unknown) (no (unknown) (unknown) WBC (units (unkno wn) date) unknown) (unknown) (no (unknown) (unknown) WBC (units (unkno wn) date) unknown) (unknown) (no (unknown) (unknown) WBC 4.9 (units (unkno wn) date) unknown) (unknown) (no (unknown) (unknown) [Embedded Image (units (unknown) date) Not Available] unknown) (unknown) (no (unknown) (unknown) acute distress (units (unknown) date) unknown) (unknown) (no (unknown) (unknown) been swollen for (units (unknown) date) months. unknown) (unknown) (no (unknown) (unknown) bruises/scabs on (units (unknown) date) bilateral upper unknown) extremities, 2+ edema to the lower extremities (unknown) (no (unknown) (unknown) carotids no (units (un known) date) bruits unknown) (unknown) (no (unknown) (unknown) clonazepam, (units (un known) date) paroxetine, and unknown) quetiapine 25 mg bedtime. He also receives (unknown) (no (unknown) (unknown) confused and (units (u nknown) date) denies any pain. unknown) (unknown) (no (unknown) (unknown) consider (units (unkno wn) date) titrating this unknown) up. Will defer that to his PCP. (unknown) (no (unknown) (unknown) dysregulation. (units ( unknown) date) There is no unknown) obvious infection. Urine cutlure negative. He does (unknown) (no (unknown) (unknown) extraocular (units (un known) date) movements intact, unknown) sclerae anicteric, nares patent, oropharynx (unknown) (no (unknown) (unknown) fair, mild (units (unk nown) date) erythema around unknown) the left eye with injected sclera (unknown) (no (unknown) (unknown) generalized (units (un known) date) pain, likely unknown) secondary to frequent falls. (unknown) (no (unknown) (unknown) household (units (unkn own) date) members: family unknown) (unknown) (no (unknown) (unknown) impaired (units (unkno wn) date) unknown) (unknown) (no (unknown) (unknown) in the locked (units ( unknown) date) memory care unit unknown) as a result. He has been on as needed (unknown) (no (unknown) (unknown) organomegaly or (units (unknown) date) masses unknown) appreciated (unknown) (no (unknown) (unknown) reveals an intact (units (unknown) date) soft and hard unknown) palate with moist mucous membranes, dentition is (unknown) (no (unknown) (unknown) today; this time (units (unknown) date) is exclusive of unknown) procedural time. (unknown) (no (unknown) (unknown) trazodone at (units (u nknown) date) bedtime. unknown) Uncertain as to what has led to his behavioral (unknown) (no (unknown) (unknown) will hold. Would (units (unknown) date) recommend to unknown) discontinue this at discharge. (unknown) (no (unknown) (unknown) year. Likely (units (u nknown) date) related to his unknown) dementia. He is on Paxil at baseline. Could Result panel 18 (unknown) (no (unknown) (unknown) (no value) (units (unk nown) date) unknown) (unknown) (no (unknown) (unknown) Date of Service: (units (unknown) date) 11/09/21 unknown) (unknown) (no (unknown) (unknown) (no value) (units (unk nown) date) unknown) (unknown) (no (unknown) (unknown) ADDENDUM (units (u nknown) date) unknown) (unknown) (no (unknown) (unknown) 11/10/21 06:10 (units (unknown) date) unknown) (unknown) (no (unknown) (unknown) 11/10/21 1408 (units ( unknown) date) unknown) (unknown) (no (unknown) (unknown) 11/10/21 1411 (units ( unknown) date) unknown) (unknown) (no (unknown) (unknown) [facility] (units (unknown) date) [address] unknown) [place] [id number] (unknown) (no (unknown) (unknown) Laboratory (units (unk nown) date) Results - last 24 unknown) hr (unknown) (no (unknown) (unknown) Progress Note (units ( unknown) date) unknown) (unknown) (no (unknown) (unknown) (no value) (units (unk nown) date) unknown) (unknown) (no (unknown) (unknown) 11/09/21 (units (unkno wn) date) unknown) (unknown) (no (unknown) (unknown) 11/09/21 (units (unkno wn) date) 11/09/21 11/09/21 unknown) (unknown) (no (unknown) (unknown) 11:00 11:00 (units (un known) date) 11:00 unknown) (unknown) (no (unknown) (unknown) 11:00 13:06 (units (un known) date) 13:42 unknown) (unknown) (no (unknown) (unknown) 14:37 (units (unkno wn) date) unknown) (unknown) (no (unknown) (unknown) echocardiogram (units (unknown) date) is in our system. unknown) Monitor diuresis. Son notes his legs have (unknown) (no (unknown) (unknown) goals of care, (units (unknown) date) will not pursue unknown) this any further at this time. Resume his usual (unknown) (no (unknown) (unknown) have elevated (units ( unknown) date) troponin, but no unknown) focal cardiac symptoms. He does have some (unknown) (no (unknown) (unknown) home medication (units (unknown) date) unknown) (unknown) (no (unknown) (unknown) memory care unit (units (unknown) date) at [facility] 24-48 unknown) hours (unknown) (no (unknown) (unknown) (past 8 hours): (units (unknown) date) unknown) (unknown) (no (unknown) (unknown) -adjust his (units (un known) date) Seroquel from 25 unknown) mg at bedtime to 12.5 mg scheduled every 6 hours (unknown) (no (unknown) (unknown) -continue (units (unkn own) date) eyedrops. unknown) (unknown) (no (unknown) (unknown) -continue (units (unkn own) date) scheduled Tylenol unknown) (unknown) (no (unknown) (unknown) -fast score is (units (unknown) date) still well above unknown) 7, and he would not be a candidate for hospice. (unknown) (no (unknown) (unknown) 1. 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 Coronary (units (un known) date) artery disease unknown) (unknown) (no (unknown) (unknown) 3. Suspected (units (u nknown) date) chronic unknown) congestive heart failure (unknown) (no (unknown) (unknown) 4. Left eye (units (un known) date) conjunctivitis unknown) (unknown) (no (unknown) (unknown) 5. Paroxysmal (units ( unknown) date) atrial unknown) fibrillation (unknown) (no (unknown) (unknown) 6. Depression (units ( unknown) date) unknown) (unknown) (no (unknown) (unknown) ABD: Soft, (units (unkn own) date) nontender, unknown) nondistended, bowel sounds present in all 4 quadrants, no (unknown) (no (unknown) (unknown) ALT (units (unkno wn) date) unknown) (unknown) (no (unknown) (unknown) ALT 10 (units (unkno wn) date) unknown) (unknown) (no (unknown) (unknown) ALT (units (unkno wn) date) unknown) (unknown) (no (unknown) (unknown) AST (units (unkno wn) date) unknown) (unknown) (no (unknown) (unknown) AST 20 (units (unkno wn) date) unknown) (unknown) (no (unknown) (unknown) AST (units (unkno wn) date) unknown) (unknown) (no (unknown) (unknown) Addendum (units (unkno wn) date) Documented By: unknown) Griffin Quiñones D.O. (unknown) (no (unknown) (unknown) Addendum Signed (units (unknown) date) By: unknown) <Electronically signed by Griffin Quiñones, (unknown) (no (unknown) (unknown) Adjustment (units (unk nown) date) disorder with unknown) depressed mood (unknown) (no (unknown) (unknown) Admit under (units (unk nown) date) observation unknown) status. It is hoped to be able to discharge back to the (unknown) (no (unknown) (unknown) Age/Sex: 89 / M (units (unknown) date) unknown) (unknown) (no (unknown) (unknown) Albumin (units (unkno wn) date) unknown) (unknown) (no (unknown) (unknown) Albumin 3.4 L (units ( unknown) date) unknown) (unknown) (no (unknown) (unknown) Albumin (units (unkno wn) date) unknown) (unknown) (no (unknown) (unknown) Albumin/Globulin (units (unknown) date) Ratio unknown) (unknown) (no (unknown) (unknown) Albumin/Globulin (units (unknown) date) Ratio 1.1 unknown) (unknown) (no (unknown) (unknown) Albumin/Globulin (units (unknown) date) Ratio unknown) (unknown) (no (unknown) (unknown) Alkaline (units (unkno wn) date) Phosphatase unknown) (unknown) (no (unknown) (unknown) Alkaline (units (unkno wn) date) Phosphatase 131 H unknown) (unknown) (no (unknown) (unknown) Alkaline (units (unkno wn) date) Phosphatase unknown) (unknown) (no (unknown) (unknown) Assessment + (units (u nknown) date) Plan unknown) (unknown) (no (unknown) (unknown) Assessment + (units (u nknown) date) Plan narrative: unknown) (unknown) (no (unknown) (unknown) BUN (units (unkno wn) date) unknown) (unknown) (no (unknown) (unknown) BUN 27 H (units (unkno wn) date) unknown) (unknown) (no (unknown) (unknown) BUN (units (unkno wn) date) unknown) (unknown) (no (unknown) (unknown) BUN/Creatinine (units (unknown) date) Ratio unknown) (unknown) (no (unknown) (unknown) BUN/Creatinine (units (unknown) date) Ratio 19.6 unknown) (unknown) (no (unknown) (unknown) BUN/Creatinine (units (unknown) date) Ratio unknown) (unknown) (no (unknown) (unknown) Baso # (Auto) (units ( unknown) date) unknown) (unknown) (no (unknown) (unknown) Baso # (Auto) (units ( unknown) date) unknown) (unknown) (no (unknown) (unknown) Baso # (Auto) 0 (units (unknown) date) unknown) (unknown) (no (unknown) (unknown) Baso % (Auto) (units ( unknown) date) unknown) (unknown) (no (unknown) (unknown) Baso % (Auto) (units ( unknown) date) unknown) (unknown) (no (unknown) (unknown) Baso % (Auto) (units ( unknown) date) 0.5 unknown) (unknown) (no (unknown) (unknown) CHEST: (units (unkno wn) date) Respiratory unknown) excursions symmetric, clear to auscultation bilaterally (unknown) (no (unknown) (unknown) CK-MB (CK-2) (units (u nknown) date) unknown) (unknown) (no (unknown) (unknown) CK-MB (CK-2) TNP (units (unknown) date) unknown) (unknown) (no (unknown) (unknown) CK-MB (CK-2) (units (u nknown) date) unknown) (unknown) (no (unknown) (unknown) CK-MB (CK-2) Rel (units (unknown) date) Index unknown) (unknown) (no (unknown) (unknown) CK-MB (CK-2) Rel (units (unknown) date) Index TNP unknown) (unknown) (no (unknown) (unknown) CK-MB (CK-2) Rel (units (unknown) date) Index unknown) (unknown) (no (unknown) (unknown) CV: Regular rate (units (unknown) date) and rhythm, no unknown) murmurs, rubs, gallops, PMI nondisplaced (unknown) (no (unknown) (unknown) Calcium (units (unkno wn) date) unknown) (unknown) (no (unknown) (unknown) Calcium 8.8 (units (un known) date) unknown) (unknown) (no (unknown) (unknown) Calcium (units (unkno wn) date) unknown) (unknown) (no (unknown) (unknown) Carbon Dioxide (units (unknown) date) unknown) (unknown) (no (unknown) (unknown) Carbon Dioxide (units (unknown) date) 30 unknown) (unknown) (no (unknown) (unknown) Carbon Dioxide (units (unknown) date) unknown) (unknown) (no (unknown) (unknown) Chloride (units (unkno wn) date) unknown) (unknown) (no (unknown) (unknown) Chloride 104 (units (u nknown) date) unknown) (unknown) (no (unknown) (unknown) Chloride (units (unkno wn) date) unknown) (unknown) (no (unknown) (unknown) Code status (units (un known) date) unknown) (unknown) (no (unknown) (unknown) Creatinine (units (unk nown) date) unknown) (unknown) (no (unknown) (unknown) Creatinine 1.38 (units (unknown) date) H unknown) (unknown) (no (unknown) (unknown) Creatinine (units (unk nown) date) unknown) (unknown) (no (unknown) (unknown) Critical Care (units ( unknown) date) time: unknown) (unknown) (no (unknown) (unknown) D.O.> 11/10/21 (units (unknown) date) 1411 unknown) (unknown) (no (unknown) (unknown) DNR/DNI (units (unkno wn) date) unknown) (unknown) (no (unknown) (unknown) : 1930 (units (unknown) date) Acct:[id number] unknown) (unknown) (no (unknown) (unknown) Date Patient (units (u nknown) date) Seen: 11/10/21 unknown) (unknown) (no (unknown) (unknown) Disorientation, (units (unknown) date) unspecified unknown) (unknown) (no (unknown) (unknown) Disposition (units (un known) date) unknown) (unknown) (no (unknown) (unknown) EXTR: Warm, well (units (unknown) date) perfused, no unknown) clubbing/cyanosis /edema, multiple new and old (unknown) (no (unknown) (unknown) Eos # (Auto) (units (u nknown) date) unknown) (unknown) (no (unknown) (unknown) Eos # (Auto) (units (u nknown) date) unknown) (unknown) (no (unknown) (unknown) Eos # (Auto) 100 (units (unknown) date) unknown) (unknown) (no (unknown) (unknown) Eos % (Auto) (units (u nknown) date) unknown) (unknown) (no (unknown) (unknown) Eos % (Auto) (units (u nknown) date) unknown) (unknown) (no (unknown) (unknown) Eos % (Auto) 1.6 (units (unknown) date) L unknown) (unknown) (no (unknown) (unknown) Essential (units (unkn own) date) hypertension unknown) (unknown) (no (unknown) (unknown) Estimated GFR (units ( unknown) date) unknown) (unknown) (no (unknown) (unknown) Estimated GFR 49 (units (unknown) date) L unknown) (unknown) (no (unknown) (unknown) Estimated GFR (units ( unknown) date) unknown) (unknown) (no (unknown) (unknown) Exam (units (unkno wn) date) unknown) (unknown) (no (unknown) (unknown) Exam Narrative: (units (unknown) date) unknown) (unknown) (no (unknown) (unknown) GEN: Elderly (units (u nknown) date) male, speaks with unknown) accented Senegalese, Alert and oriented x1, no (unknown) (no (unknown) (unknown) Globulin (units (unkno wn) date) unknown) (unknown) (no (unknown) (unknown) Globulin 3.2 (units (u nknown) date) unknown) (unknown) (no (unknown) (unknown) Globulin (units (unkno wn) date) unknown) (unknown) (no (unknown) (unknown) Glucose (units (unkno wn) date) unknown) (unknown) (no (unknown) (unknown) Glucose 111 H (units ( unknown) date) unknown) (unknown) (no (unknown) (unknown) Glucose (units (unkno wn) date) unknown) (unknown) (no (unknown) (unknown) Gout, (units (unkno wn) date) unspecified unknown) (unknown) (no (unknown) (unknown) HEENT: (units (unkno wn) date) Normocephalic, unknown) face symmetric, pupils equal round reactive to light, (unknown) (no (unknown) (unknown) Hct (units (unkno wn) date) unknown) (unknown) (no (unknown) (unknown) Hct (units (unkno wn) date) unknown) (unknown) (no (unknown) (unknown) Hct 27.7 L (units (unk nown) date) unknown) (unknown) (no (unknown) (unknown) He does have an (units (unknown) date) elevated troponin unknown) but no focal ischemic symptoms. Given overall (unknown) (no (unknown) (unknown) He is on (units (unkno wn) date) warfarin at unknown) baseline. Given his frequent and multiple falls, warfarin (unknown) (no (unknown) (unknown) Hgb (units (unkno wn) date) unknown) (unknown) (no (unknown) (unknown) Hgb (units (unkno wn) date) unknown) (unknown) (no (unknown) (unknown) Hgb 9.1 L (units (unkn own) date) unknown) (unknown) (no (unknown) (unknown) I spent a total (units (unknown) date) of [] minutes of unknown) critical care time on this patient's care (unknown) (no (unknown) (unknown) INR (units (unkno wn) date) unknown) (unknown) (no (unknown) (unknown) INR (units (unkno wn) date) unknown) (unknown) (no (unknown) (unknown) INR 1.5 H (units (unkn own) date) unknown) (unknown) (no (unknown) (unknown) Interval (units (unkno wn) date) history: unknown) (unknown) (no (unknown) (unknown) 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 (unknown) (no (unknown) (unknown) Labs (units (unkno wn) date) unknown) (unknown) (no (unknown) (unknown) Labs: (units (unkno wn) date) unknown) (unknown) (no (unknown) (unknown) Lactate (units (unkno wn) date) unknown) (unknown) (no (unknown) (unknown) Lactate (units (unkno wn) date) unknown) (unknown) (no (unknown) (unknown) Lactate 0.9 (units (un known) date) unknown) (unknown) (no (unknown) (unknown) Low Maribel score (units (unknown) date) unknown) (unknown) (no (unknown) (unknown) Lymph # (Auto) (units (unknown) date) unknown) (unknown) (no (unknown) (unknown) Lymph # (Auto) (units (unknown) date) unknown) (unknown) (no (unknown) (unknown) Lymph # (Auto) (units (unknown) date) 700 L unknown) (unknown) (no (unknown) (unknown) Lymph % (Auto) (units (unknown) date) unknown) (unknown) (no (unknown) (unknown) Lymph % (Auto) (units (unknown) date) unknown) (unknown) (no (unknown) (unknown) Lymph % (Auto) (units (unknown) date) 15.1 L unknown) (unknown) (no (unknown) (unknown) MCH (units (unkno wn) date) unknown) (unknown) (no (unknown) (unknown) MCH (units (unkno wn) date) unknown) (unknown) (no (unknown) (unknown) MCH 30.8 (units (unkno wn) date) unknown) (unknown) (no (unknown) (unknown) MCHC (units (unkno wn) date) unknown) (unknown) (no (unknown) (unknown) MCHC (units (unkno wn) date) unknown) (unknown) (no (unknown) (unknown) MCHC 33.0 (units (unkn own) date) unknown) (unknown) (no (unknown) (unknown) MCV (units (unkno wn) date) unknown) (unknown) (no (unknown) (unknown) MCV (units (unkno wn) date) unknown) (unknown) (no (unknown) (unknown) MCV 93.2 (units (unkno wn) date) unknown) (unknown) (no (unknown) (unknown) Major depressive (units (unknown) date) disorder unknown) (unknown) (no (unknown) (unknown) Medical History (units (unknown) date) (Reviewed unknown) 11/10/21 @ 05:36 by Griffin Quiñones DO) (unknown) (no (unknown) (unknown) [place] # (Auto) (units ( unknown) date) unknown) (unknown) (no (unknown) (unknown) [place] # (Auto) (units ( unknown) date) unknown) (unknown) (no (unknown) (unknown) [place] # (Auto) (units ( unknown) date) 300 unknown) (unknown) (no (unknown) (unknown) [place] % (Auto) (units ( unknown) date) unknown) (unknown) (no (unknown) (unknown) [place] % (Auto) (units ( unknown) date) unknown) (unknown) (no (unknown) (unknown) [place] % (Auto) (units ( unknown) date) 6.2 unknown) (unknown) (no (unknown) (unknown) NECK: Supple, no (units (unknown) date) lymphadenopathy, unknown) thyroid without enlargement or nodularity, (unknown) (no (unknown) (unknown) NEURO: Alert and (units (unknown) date) oriented x1, unknown) nonfocal (unknown) (no (unknown) (unknown) Narrative (units (unkn own) date) unknown) (unknown) (no (unknown) (unknown) Neut # (Auto) (units ( unknown) date) unknown) (unknown) (no (unknown) (unknown) Neut # (Auto) (units ( unknown) date) unknown) (unknown) (no (unknown) (unknown) Neut # (Auto) (units ( unknown) date) 3800 unknown) (unknown) (no (unknown) (unknown) Neut % (Auto) (units ( unknown) date) unknown) (unknown) (no (unknown) (unknown) Neut % (Auto) (units ( unknown) date) unknown) (unknown) (no (unknown) (unknown) Neut % (Auto) (units ( unknown) date) 76.6 H unknown) (unknown) (no (unknown) (unknown) Objective (units (unkn own) date) unknown) (unknown) (no (unknown) (unknown) Oxygen Delivery (units (unknown) date) Method Room Air unknown) (unknown) (no (unknown) (unknown) Oxygen Flow Rate (units (unknown) date) 0 unknown) (unknown) (no (unknown) (unknown) PFSH (units (unkno wn) date) unknown) (unknown) (no (unknown) (unknown) PSYCH: Mood and (units (unknown) date) affect is within unknown) normal limits, judgment and insight are (unknown) (no (unknown) (unknown) PT (units (unkno wn) date) unknown) (unknown) (no (unknown) (unknown) PT (units (unkno wn) date) unknown) (unknown) (no (unknown) (unknown) PT 17.2 H (units (unkn own) date) unknown) (unknown) (no (unknown) (unknown) Paroxysmal (units (unk nown) date) atrial unknown) fibrillation (unknown) (no (unknown) (unknown) Patient does (units (u nknown) date) have a unknown) longstanding history of attempts at elopement. He has been (unknown) (no (unknown) (unknown) Patient is on (units (u nknown) date) Lasix 60 mg unknown) daily, along with his typical cardiac medications. No (unknown) (no (unknown) (unknown) Patient sleeping (units (unknown) date) but awakens upon unknown) my entering the room. He is pleasantly (unknown) (no (unknown) (unknown) Patient: (units (unkno wn) date) Roberto aHrmon unknown) MR#: [id number] (unknown) (no (unknown) (unknown) Plt Count (units (unkn own) date) unknown) (unknown) (no (unknown) (unknown) Plt Count (units (unkn own) date) unknown) (unknown) (no (unknown) (unknown) Plt Count 147 L (units (unknown) date) unknown) (unknown) (no (unknown) (unknown) Potassium (units (unkn own) date) unknown) (unknown) (no (unknown) (unknown) Potassium 4.0 (units ( unknown) date) unknown) (unknown) (no (unknown) (unknown) Potassium (units (unkn own) date) unknown) (unknown) (no (unknown) (unknown) Procalcitonin (units ( unknown) date) unknown) (unknown) (no (unknown) (unknown) Procalcitonin (units ( unknown) date) 0.08 unknown) (unknown) (no (unknown) (unknown) Procalcitonin (units ( unknown) date) unknown) (unknown) (no (unknown) (unknown) Prophylaxis (units (un known) date) unknown) (unknown) (no (unknown) (unknown) Provider: (units (unkn own) date) Griffin Quiñones unknownLulu D.O. (unknown) (no (unknown) (unknown) RBC (units (unkno wn) date) unknown) (unknown) (no (unknown) (unknown) RBC (units (unkno wn) date) unknown) (unknown) (no (unknown) (unknown) RBC 2.97 L (units (unk nown) date) unknown) (unknown) (no (unknown) (unknown) RDW (units (unkno wn) date) unknown) (unknown) (no (unknown) (unknown) RDW (units (unkno wn) date) unknown) (unknown) (no (unknown) (unknown) RDW 19.0 H (units (unk nown) date) unknown) (unknown) (no (unknown) (unknown) Repeated falls (units (unknown) date) unknown) (unknown) (no (unknown) (unknown) Result Diagrams: (units (unknown) date) unknown) (unknown) (no (unknown) (unknown) SARS-CoV-2 (PCR) (units (unknown) date) unknown) (unknown) (no (unknown) (unknown) SARS-CoV-2 (PCR) (units (unknown) date) Negative unknown) (unknown) (no (unknown) (unknown) SARS-CoV-2 (PCR) (units (unknown) date) unknown) (unknown) (no (unknown) (unknown) SKIN: Warm and (units (unknown) date) dry, without rash unknown) (unknown) (no (unknown) (unknown) Signed (units (unkno wn) date) By:<Electronicall unknown) y signed by Griffin Quiñones D.O.> (unknown) (no (unknown) (unknown) Smoking Status: (units (unknown) date) Unknown if ever unknown) smoked (unknown) (no (unknown) (unknown) Social History (units (unknown) date) (Reviewed unknown) 11/10/21 @ 05:36 by Griffin Quiñones DO) (unknown) (no (unknown) (unknown) Sodium (units (unkno wn) date) unknown) (unknown) (no (unknown) (unknown) Sodium 139 (units (unk nown) date) unknown) (unknown) (no (unknown) (unknown) Sodium (units (unkno wn) date) unknown) (unknown) (no (unknown) (unknown) Son reports (units (un known) date) patient has had unknown) more tearfulness and labile emotions over the last (unknown) (no (unknown) (unknown) Subjective (units (unk nown) date) unknown) (unknown) (no (unknown) (unknown) Surrogate (units (unkn own) date) decision maker is unknown) son Rommel Harmon. (unknown) (no (unknown) (unknown) Time Patient (units (u nknown) date) Seen: 14:04 unknown) (unknown) (no (unknown) (unknown) Time Spent With (units (unknown) date) Patient unknown) (unknown) (no (unknown) (unknown) Total Bilirubin (units (unknown) date) unknown) (unknown) (no (unknown) (unknown) Total Bilirubin (units (unknown) date) 0.9 unknown) (unknown) (no (unknown) (unknown) Total Bilirubin (units (unknown) date) unknown) (unknown) (no (unknown) (unknown) Total Creatine (units (unknown) date) Kinase unknown) (unknown) (no (unknown) (unknown) Total Creatine (units (unknown) date) Kinase 62 unknown) (unknown) (no (unknown) (unknown) Total Creatine (units (unknown) date) Kinase unknown) (unknown) (no (unknown) (unknown) Total Protein (units ( unknown) date) unknown) (unknown) (no (unknown) (unknown) Total Protein (units ( unknown) date) 6.6 unknown) (unknown) (no (unknown) (unknown) Total Protein (units ( unknown) date) unknown) (unknown) (no (unknown) (unknown) Troponin I 0.088 (units (unknown) date) H unknown) (unknown) (no (unknown) (unknown) Troponin I (units (unk nown) date) unknown) (unknown) (no (unknown) (unknown) Troponin I 0.091 (units (unknown) date) H unknown) (unknown) (no (unknown) (unknown) Unspecified (units (un known) date) dementia without unknown) behavioral disturbance (unknown) (no (unknown) (unknown) Ur Culture (units (unk nown) date) Indicated? unknown) (unknown) (no (unknown) (unknown) Ur Culture (units (unk nown) date) Indicated? unknown) Specimen cultured (unknown) (no (unknown) (unknown) Ur Leukocyte (units (u nknown) date) Esterase unknown) (unknown) (no (unknown) (unknown) Ur Leukocyte (units (u nknown) date) Esterase Trace H unknown) (unknown) (no (unknown) (unknown) Ur Specific (units (un known) date) Steele unknown) (unknown) (no (unknown) (unknown) Ur Specific (units (un known) date) [place] 1.015 unknown) (unknown) (no (unknown) (unknown) Ur Squamous (units (un known) date) Epith Cells unknown) (unknown) (no (unknown) (unknown) Ur Squamous (units (un known) date) Epith Cells 1-5 unknown) /hpf (unknown) (no (unknown) (unknown) Urine Appearance (units (unknown) date) unknown) (unknown) (no (unknown) (unknown) Urine Appearance (units (unknown) date) Clear unknown) (unknown) (no (unknown) (unknown) Urine Bacteria (units (unknown) date) unknown) (unknown) (no (unknown) (unknown) Urine Bacteria (units (unknown) date) Few (2-10) H unknown) (unknown) (no (unknown) (unknown) Urine Bilirubin (units (unknown) date) unknown) (unknown) (no (unknown) (unknown) Urine Bilirubin (units (unknown) date) Negative unknown) (unknown) (no (unknown) (unknown) Urine Color (units (un known) date) unknown) (unknown) (no (unknown) (unknown) Urine Color (units (un known) date) Yellow unknown) (unknown) (no (unknown) (unknown) Urine Glucose (units ( unknown) date) (UA) unknown) (unknown) (no (unknown) (unknown) Urine Glucose (units ( unknown) date) (UA) Trace H unknown) (unknown) (no (unknown) (unknown) Urine Ketones (units ( unknown) date) unknown) (unknown) (no (unknown) (unknown) Urine Ketones (units ( unknown) date) Negative unknown) (unknown) (no (unknown) (unknown) Urine Nitrate (units ( unknown) date) unknown) (unknown) (no (unknown) (unknown) Urine Nitrate (units ( unknown) date) Negative unknown) (unknown) (no (unknown) (unknown) Urine Occult (units (u nknown) date) Blood unknown) (unknown) (no (unknown) (unknown) Urine Occult (units (u nknown) date) Blood Negative unknown) (unknown) (no (unknown) (unknown) Urine Protein (units ( unknown) date) unknown) (unknown) (no (unknown) (unknown) Urine Protein (units ( unknown) date) Trace H unknown) (unknown) (no (unknown) (unknown) Urine RBC (units (unkn own) date) unknown) (unknown) (no (unknown) (unknown) Urine RBC (units (unkn own) date) 0-1/hpf unknown) (unknown) (no (unknown) (unknown) Urine (units (unkno wn) date) Urobilinogen unknown) (unknown) (no (unknown) (unknown) Urine (units (unkno wn) date) Urobilinogen 4.0 unknown) H (unknown) (no (unknown) (unknown) Urine WBC (units (unkn own) date) unknown) (unknown) (no (unknown) (unknown) Urine WBC (units (unkn own) date) 1-5/hpf unknown) (unknown) (no (unknown) (unknown) Urine pH (units (unkno wn) date) unknown) (unknown) (no (unknown) (unknown) Urine pH 6.0 (units (u nknown) date) unknown) (unknown) (no (unknown) (unknown) Vital Signs (units (un known) date) unknown) (unknown) (no (unknown) (unknown) WBC (units (unkno wn) date) unknown) (unknown) (no (unknown) (unknown) WBC (units (unkno wn) date) unknown) (unknown) (no (unknown) (unknown) WBC 4.9 (units (unkno wn) date) unknown) (unknown) (no (unknown) (unknown) [Embedded Image (units (unknown) date) Not Available] unknown) (unknown) (no (unknown) (unknown) acute distress (units (unknown) date) unknown) (unknown) (no (unknown) (unknown) been swollen for (units (unknown) date) months. unknown) (unknown) (no (unknown) (unknown) bruises/scabs on (units (unknown) date) bilateral upper unknown) extremities, 2+ edema to the lower extremities (unknown) (no (unknown) (unknown) carotids no (units (un known) date) bruits unknown) (unknown) (no (unknown) (unknown) clonazepam, (units (un known) date) paroxetine, and unknown) quetiapine 25 mg bedtime. He also receives (unknown) (no (unknown) (unknown) confused and (units (u nknown) date) denies any pain. unknown) (unknown) (no (unknown) (unknown) consider (units (unkno wn) date) titrating this unknown) up. Will defer that to his PCP. (unknown) (no (unknown) (unknown) dysregulation. (units ( unknown) date) There is no unknown) obvious infection. Urine cutlure negative. He does (unknown) (no (unknown) (unknown) extraocular (units (un known) date) movements intact, unknown) sclerae anicteric, nares patent, oropharynx (unknown) (no (unknown) (unknown) fair, mild (units (unk nown) date) erythema around unknown) the left eye with injected sclera (unknown) (no (unknown) (unknown) generalized (units (un known) date) pain, likely unknown) secondary to frequent falls. (unknown) (no (unknown) (unknown) household (units (unkn own) date) members: family unknown) (unknown) (no (unknown) (unknown) impaired (units (unkno wn) date) unknown) (unknown) (no (unknown) (unknown) in the locked (units ( unknown) date) memory care unit unknown) as a result. He has been on as needed (unknown) (no (unknown) (unknown) organomegaly or (units (unknown) date) masses unknown) appreciated (unknown) (no (unknown) (unknown) reveals an intact (units (unknown) date) soft and hard unknown) palate with moist mucous membranes, dentition is (unknown) (no (unknown) (unknown) today; this time (units (unknown) date) is exclusive of unknown) procedural time. (unknown) (no (unknown) (unknown) trazodone at (units (u nknown) date) bedtime. unknown) Uncertain as to what has led to his behavioral (unknown) (no (unknown) (unknown) will hold. Would (units (unknown) date) recommend to unknown) discontinue this at discharge. (unknown) (no (unknown) (unknown) year. Likely (units (u nknown) date) related to his unknown) dementia. He is on Paxil at baseline. Could Result panel 19 (unknown) (no date) (unknown) (unknown) No growth. (units (un known) unknown) Result panel 20 (unknown) (no (unknown) (unknown) (no value) (units (unk nown) date) unknown) (unknown) (no (unknown) (unknown) Date of Service: (units (unknown) date) 11/09/21 unknown) (unknown) (no (unknown) (unknown) (no value) (units (unk nown) date) unknown) (unknown) (no (unknown) (unknown) - (units (unkno wn) date) unknown) (unknown) (no (unknown) (unknown) 11/10/21 06:10 (units (unknown) date) unknown) (unknown) (no (unknown) (unknown) [facility] (units (unknown) date) [address] unknown) [place] [address] (unknown) (no (unknown) (unknown) Progress Note (units ( unknown) date) unknown) (unknown) (no (unknown) (unknown) (no value) (units (unk nown) date) unknown) (unknown) (no (unknown) (unknown) 11/11/21 (units (unkno wn) date) unknown) (unknown) (no (unknown) (unknown) echocardiogram (units (unknown) date) is in our system. unknown) Monitor diuresis. Son notes his legs have (unknown) (no (unknown) (unknown) goals of care, (units (unknown) date) will not pursue unknown) this any further at this time. Resume his usual (unknown) (no (unknown) (unknown) home medication (units (unknown) date) unknown) (unknown) (no (unknown) (unknown) memory care unit (units (unknown) date) at [facility] 24-48 unknown) hours (unknown) (no (unknown) (unknown) (past 8 hours): (units (unknown) date) unknown) (unknown) (no (unknown) (unknown) -adjust his (units (un known) date) Seroquel from 25 unknown) mg at bedtime to 12.5 mg scheduled every 6 hours (unknown) (no (unknown) (unknown) -continue (units (unkn own) date) eyedrops. unknown) (unknown) (no (unknown) (unknown) -continue (units (unkn own) date) scheduled Tylenol unknown) (unknown) (no (unknown) (unknown) -fast score is (units (unknown) date) still well above unknown) 7, and he would not be a candidate for hospice. (unknown) (no (unknown) (unknown) 02:54 (units (unkno wn) date) unknown) (unknown) (no (unknown) (unknown) 1. 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 Coronary (units (un known) date) artery disease unknown) (unknown) (no (unknown) (unknown) 3. Suspected (units (u nknown) date) chronic unknown) congestive heart failure (unknown) (no (unknown) (unknown) 4. Left eye (units (un known) date) conjunctivitis unknown) (unknown) (no (unknown) (unknown) 5. Paroxysmal (units ( unknown) date) atrial unknown) fibrillation (unknown) (no (unknown) (unknown) 6. Depression (units ( unknown) date) unknown) (unknown) (no (unknown) (unknown) ABD: Soft, (units (unkn own) date) nontender, unknown) nondistended, bowel sounds present in all 4 quadrants, no (unknown) (no (unknown) (unknown) Adjustment (units (unk nown) date) disorder with unknown) depressed mood (unknown) (no (unknown) (unknown) Admit under (units (unk nown) date) observation unknown) status. It is hoped to be able to discharge back to the (unknown) (no (unknown) (unknown) Age/Sex: 89 / M (units (unknown) date) unknown) (unknown) (no (unknown) (unknown) Assessment + (units (u nknown) date) Plan unknown) (unknown) (no (unknown) (unknown) Assessment + (units (u nknown) date) Plan narrative: unknown) (unknown) (no (unknown) (unknown) Blood Pressure (units (unknown) date) 156/71 H unknown) (unknown) (no (unknown) (unknown) CHEST: (units (unkno wn) date) Respiratory unknown) excursions symmetric, clear to auscultation bilaterally (unknown) (no (unknown) (unknown) CV: Regular rate (units (unknown) date) and rhythm, no unknown) murmurs, rubs, gallops, PMI nondisplaced (unknown) (no (unknown) (unknown) Code status (units (un known) date) unknown) (unknown) (no (unknown) (unknown) Critical Care (units ( unknown) date) time: unknown) (unknown) (no (unknown) (unknown) DNR/DNI (units (unkno wn) date) unknown) (unknown) (no (unknown) (unknown) : 1930 (units (unknown) date) Acct:[id number] unknown) (unknown) (no (unknown) (unknown) Disorientation, (units (unknown) date) unspecified unknown) (unknown) (no (unknown) (unknown) Disposition (units (un known) date) unknown) (unknown) (no (unknown) (unknown) EXTR: Warm, well (units (unknown) date) perfused, no unknown) clubbing/cyanosis /edema, multiple new and old (unknown) (no (unknown) (unknown) Essential (units (unkn own) date) hypertension unknown) (unknown) (no (unknown) (unknown) Exam (units (unkno wn) date) unknown) (unknown) (no (unknown) (unknown) Exam Narrative: (units (unknown) date) unknown) (unknown) (no (unknown) (unknown) GEN: Elderly (units (u nknown) date) male, speaks with unknown) accented [place]e, Alert and oriented x1, no (unknown) (no (unknown) (unknown) Gout, (units (unkno wn) date) unspecified unknown) (unknown) (no (unknown) (unknown) HEENT: (units (unkno wn) date) Normocephalic, unknown) face symmetric, pupils equal round reactive to light, (unknown) (no (unknown) (unknown) He does have an (units (unknown) date) elevated troponin unknown) but no focal ischemic symptoms. Given overall (unknown) (no (unknown) (unknown) He is on (units (unkno wn) date) warfarin at unknown) baseline. 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 (unknown) (no (unknown) (unknown) Labs (units (unkno wn) date) unknown) (unknown) (no (unknown) (unknown) Low Maribel score (units (unknown) date) unknown) (unknown) (no (unknown) (unknown) Major depressive (units (unknown) date) disorder unknown) (unknown) (no (unknown) (unknown) Medical History (units (unknown) date) (Reviewed unknown) 11/11/21 @ 09:06 by Griffin Quiñones DO) (unknown) (no (unknown) (unknown) NECK: Supple, no (units (unknown) date) lymphadenopathy, unknown) thyroid without enlargement or nodularity, (unknown) (no (unknown) (unknown) NEURO: Alert and (units (unknown) date) oriented x1, unknown) nonfocal (unknown) (no (unknown) (unknown) Narrative (units (unkn own) date) unknown) (unknown) (no (unknown) (unknown) Objective (units (unkn own) date) unknown) (unknown) (no (unknown) (unknown) Oxygen Delivery (units (unknown) date) Method Room Air unknown) (unknown) (no (unknown) (unknown) Oxygen Flow Rate (units (unknown) date) 0 unknown) (unknown) (no (unknown) (unknown) PFSH (units (unkno wn) date) unknown) (unknown) (no (unknown) (unknown) PSYCH: Mood and (units (unknown) date) affect is within unknown) normal limits, judgment and insight are (unknown) (no (unknown) (unknown) Paroxysmal (units (unk nown) date) atrial unknown) fibrillation (unknown) (no (unknown) (unknown) Patient does (units (u nknown) date) have a unknown) longstanding history of attempts at elopement. He has been (unknown) (no (unknown) (unknown) Patient is on (units (u nknown) date) Lasix 60 mg unknown) daily, along with his typical cardiac medications. No (unknown) (no (unknown) (unknown) Patient: (units (unkno wn) date) Roberto Harmon unknown) MR#: [id number] (unknown) (no (unknown) (unknown) Prophylaxis (units (un known) date) unknown) (unknown) (no (unknown) (unknown) Provider: (units (unkn own) date) Griffin Quiñones unknown) D.O. (unknown) (no (unknown) (unknown) Pulse Oximetry (units (unknown) date) 97 unknown) (unknown) (no (unknown) (unknown) Pulse Rate 66 (units ( unknown) date) unknown) (unknown) (no (unknown) (unknown) Repeated falls (units (unknown) date) unknown) (unknown) (no (unknown) (unknown) Respiratory Rate (units (unknown) date) 16 unknown) (unknown) (no (unknown) (unknown) Result Diagrams: (units (unknown) date) unknown) (unknown) (no (unknown) (unknown) SKIN: Warm and (units (unknown) date) dry, without rash unknown) (unknown) (no (unknown) (unknown) Signed By: (units (unk nown) date) unknown) (unknown) (no (unknown) (unknown) Smoking Status: (units (unknown) date) Unknown if ever unknown) smoked (unknown) (no (unknown) (unknown) Social History (units (unknown) date) (Reviewed unknown) 11/11/21 @ 09:06 by Griffin Quiñones DO) (unknown) (no (unknown) (unknown) Son reports (units (un known) date) patient has had unknown) more tearfulness and labile emotions over the last (unknown) (no (unknown) (unknown) Temperature 97.1 (units (unknown) date) F L unknown) (unknown) (no (unknown) (unknown) Time Spent With (units (unknown) date) Patient unknown) (unknown) (no (unknown) (unknown) Unspecified (units (un known) date) dementia without unknown) behavioral disturbance (unknown) (no (unknown) (unknown) Vital Signs (units (un known) date) unknown) (unknown) (no (unknown) (unknown) [Embedded Image (units (unknown) date) Not Available] unknown) (unknown) (no (unknown) (unknown) acute distress (units (unknown) date) unknown) (unknown) (no (unknown) (unknown) am, paroxetine, (units (unknown) date) and quetiapine 25 unknown) mg bedtime. He also receives trazodone at (unknown) (no (unknown) (unknown) bedtime. (units (unkno wn) date) Uncertain as to unknown) what has led to his behavioral dysregulation. There (unknown) (no (unknown) (unknown) been swollen for (units (unknown) date) months. unknown) (unknown) (no (unknown) (unknown) bruises/scabs on (units (unknown) date) bilateral upper unknown) extremities, 2+ edema to the lower extremities (unknown) (no (unknown) (unknown) carotids no (units (un known) date) bruits unknown) (unknown) (no (unknown) (unknown) consider (units (unkno wn) date) titrating this unknown) up. Will defer that to his PCP. (unknown) (no (unknown) (unknown) extraocular (units (un known) date) movements intact, unknown) sclerae anicteric, nares patent, oropharynx (unknown) (no (unknown) (unknown) fair, mild (units (unk nown) date) erythema around unknown) the left eye with injected sclera (unknown) (no (unknown) (unknown) household (units (unkn own) date) members: other unknown) (unknown) (no (unknown) (unknown) impaired (units (unkno wn) date) unknown) (unknown) (no (unknown) (unknown) in the locked (units ( unknown) date) memory care unit unknown) as a result. He has been on as needed clonazep (unknown) (no (unknown) (unknown) is no obvious (units ( unknown) date) infection. Urine unknown) cutlure negative. He does have elevated (unknown) (no (unknown) (unknown) likely secondary (units (unknown) date) to frequent unknown) falls. (unknown) (no (unknown) (unknown) organomegaly or (units (unknown) date) masses unknown) appreciated (unknown) (no (unknown) (unknown) reveals an intact (units (unknown) date) soft and hard unknown) palate with moist mucous membranes, dentition is (unknown) (no (unknown) (unknown) today; this time (units (unknown) date) is exclusive of unknown) procedural time. (unknown) (no (unknown) (unknown) troponin, but no (units (unknown) date) focal cardiac unknown) symptoms. He does have some generalized pain, (unknown) (no (unknown) (unknown) will hold. Would (units (unknown) date) recommend to unknown) discontinue this at discharge. (unknown) (no (unknown) (unknown) year. Likely (units (u nknown) date) related to his unknown) dementia. He is on Paxil at baseline. Could Result panel 21 (unknown) (no date) (unknown) (unknown) NO GROWTH (units (unk nown) AFTER 48 unknown) HOURS (unknown) (no date) (unknown) (unknown) (no value) (units (un known) unknown) Result panel 22 (unknown) (no date) (unknown) (unknown) NO GROWTH (units (unk nown) AFTER 48 unknown) HOURS (unknown) (no date) (unknown) (unknown) (no value) (units (un known) unknown) Result panel 23 (unknown) (no (unknown) (unknown) (no value) (units (unk nown) date) unknown) (unknown) (no (unknown) (unknown) Date of Service: (units (unknown) date) 11/09/21 unknown) (unknown) (no (unknown) (unknown) (no value) (units (unk nown) date) unknown) (unknown) (no (unknown) (unknown) - (units (unkno wn) date) unknown) (unknown) (no (unknown) (unknown) 11/10/21 06:10 (units (unknown) date) unknown) (unknown) (no (unknown) (unknown) [facility] (units (unknown) date) [address] unknown) [place] [id number] (unknown) (no (unknown) (unknown) Progress Note (units ( unknown) date) unknown) (unknown) (no (unknown) (unknown) (no value) (units (unk nown) date) unknown) (unknown) (no (unknown) (unknown) 11/11/21 (units (unkno wn) date) unknown) (unknown) (no (unknown) (unknown) echocardiogram (units (unknown) date) is in our system. unknown) Monitor diuresis. Son notes his legs have (unknown) (no (unknown) (unknown) goals of care, (units (unknown) date) will not pursue unknown) this any further at this time. Resume his usual (unknown) (no (unknown) (unknown) home medication (units (unknown) date) unknown) (unknown) (no (unknown) (unknown) memory care unit (units (unknown) date) at [facility] 24-48 unknown) hours (unknown) (no (unknown) (unknown) (past 8 hours): (units (unknown) date) unknown) (unknown) (no (unknown) (unknown) -adjust his (units (un known) date) Seroquel from 25 unknown) mg at bedtime to 12.5 mg scheduled every 6 hours (unknown) (no (unknown) (unknown) -continue (units (unkn own) date) eyedrops. unknown) (unknown) (no (unknown) (unknown) -continue (units (unkn own) date) scheduled Tylenol unknown) (unknown) (no (unknown) (unknown) -fast score is (units (unknown) date) still well above unknown) 7, and he would not be a candidate for hospice. (unknown) (no (unknown) (unknown) 02:54 (units (unkno wn) date) unknown) (unknown) (no (unknown) (unknown) 1. 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 Coronary (units (un known) date) artery disease unknown) (unknown) (no (unknown) (unknown) 3. Suspected (units (u nknown) date) chronic unknown) congestive heart failure (unknown) (no (unknown) (unknown) 4. Left eye (units (un known) date) conjunctivitis unknown) (unknown) (no (unknown) (unknown) 5. Paroxysmal (units ( unknown) date) atrial unknown) fibrillation (unknown) (no (unknown) (unknown) 6. Depression (units ( unknown) date) unknown) (unknown) (no (unknown) (unknown) ABD: Soft, (units (unkn own) date) nontender, unknown) nondistended, bowel sounds present in all 4 quadrants, no (unknown) (no (unknown) (unknown) Adjustment (units (unk nown) date) disorder with unknown) depressed mood (unknown) (no (unknown) (unknown) Admit under (units (unk nown) date) observation unknown) status. It is hoped to be able to discharge back to the (unknown) (no (unknown) (unknown) Age/Sex: 89 / M (units (unknown) date) unknown) (unknown) (no (unknown) (unknown) Assessment + (units (u nknown) date) Plan unknown) (unknown) (no (unknown) (unknown) Assessment + (units (u nknown) date) Plan narrative: unknown) (unknown) (no (unknown) (unknown) Blood Pressure (units (unknown) date) 156/71 H unknown) (unknown) (no (unknown) (unknown) CHEST: (units (unkno wn) date) Respiratory unknown) excursions symmetric, clear to auscultation bilaterally (unknown) (no (unknown) (unknown) CV: Regular rate (units (unknown) date) and rhythm, no unknown) murmurs, rubs, gallops, PMI nondisplaced (unknown) (no (unknown) (unknown) Code status (units (un known) date) unknown) (unknown) (no (unknown) (unknown) Critical Care (units ( unknown) date) time: unknown) (unknown) (no (unknown) (unknown) DNR/DNI (units (unkno wn) date) unknown) (unknown) (no (unknown) (unknown) : 1930 (units (unknown) date) Acct:[id number] unknown) (unknown) (no (unknown) (unknown) Disorientation, (units (unknown) date) unspecified unknown) (unknown) (no (unknown) (unknown) Disposition (units (un known) date) unknown) (unknown) (no (unknown) (unknown) EXTR: Warm, well (units (unknown) date) perfused, no unknown) clubbing/cyanosis /edema, multiple new and old (unknown) (no (unknown) (unknown) Essential (units (unkn own) date) hypertension unknown) (unknown) (no (unknown) (unknown) Exam (units (unkno wn) date) unknown) (unknown) (no (unknown) (unknown) Exam Narrative: (units (unknown) date) unknown) (unknown) (no (unknown) (unknown) GEN: Elderly (units (u nknown) date) male, speaks with unknown) accented Senegalese, Alert and oriented x1, no (unknown) (no (unknown) (unknown) Gout, (units (unkno wn) date) unspecified unknown) (unknown) (no (unknown) (unknown) HEENT: (units (unkno wn) date) Normocephalic, unknown) face symmetric, pupils equal round reactive to light, (unknown) (no (unknown) (unknown) He does have an (units (unknown) date) elevated troponin unknown) but no focal ischemic symptoms. Given overall (unknown) (no (unknown) (unknown) He is on (units (unkno wn) date) warfarin at unknown) baseline. 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 (unknown) (no (unknown) (unknown) Labs (units (unkno wn) date) unknown) (unknown) (no (unknown) (unknown) Low Maribel score (units (unknown) date) unknown) (unknown) (no (unknown) (unknown) Major depressive (units (unknown) date) disorder unknown) (unknown) (no (unknown) (unknown) Medical History (units (unknown) date) (Reviewed unknown) 11/11/21 @ 09:06 by Griffin A Quiñones, DO) (unknown) (no (unknown) (unknown) NECK: Supple, no (units (unknown) date) lymphadenopathy, unknown) thyroid without enlargement or nodularity, (unknown) (no (unknown) (unknown) NEURO: Alert and (units (unknown) date) oriented x1, unknown) nonfocal (unknown) (no (unknown) (unknown) Narrative (units (unkn own) date) unknown) (unknown) (no (unknown) (unknown) Objective (units (unkn own) date) unknown) (unknown) (no (unknown) (unknown) Oxygen Delivery (units (unknown) date) Method Room Air unknown) (unknown) (no (unknown) (unknown) Oxygen Flow Rate (units (unknown) date) 0 unknown) (unknown) (no (unknown) (unknown) PFSH (units (unkno wn) date) unknown) (unknown) (no (unknown) (unknown) PSYCH: Mood and (units (unknown) date) affect is within unknown) normal limits, judgment and insight are (unknown) (no (unknown) (unknown) Paroxysmal (units (unk nown) date) atrial unknown) fibrillation (unknown) (no (unknown) (unknown) Patient does (units (u nknown) date) have a unknown) longstanding history of attempts at elopement. He has been (unknown) (no (unknown) (unknown) Patient is on (units (u nknown) date) Lasix 60 mg unknown) daily, along with his typical cardiac medications. No (unknown) (no (unknown) (unknown) Patient: (units (unkno wn) date) Roberto Harmon unknown) MR#: [id number] (unknown) (no (unknown) (unknown) Prophylaxis (units (un known) date) unknown) (unknown) (no (unknown) (unknown) Provider: (units (unkn own) date) Griffin Quiñones unknown) D.O. (unknown) (no (unknown) (unknown) Pulse Oximetry (units (unknown) date) 97 unknown) (unknown) (no (unknown) (unknown) Pulse Rate 66 (units ( unknown) date) unknown) (unknown) (no (unknown) (unknown) Repeated falls (units (unknown) date) unknown) (unknown) (no (unknown) (unknown) Respiratory Rate (units (unknown) date) 16 unknown) (unknown) (no (unknown) (unknown) Result Diagrams: (units (unknown) date) unknown) (unknown) (no (unknown) (unknown) SKIN: Warm and (units (unknown) date) dry, without rash unknown) (unknown) (no (unknown) (unknown) Signed By: (units (unk nown) date) unknown) (unknown) (no (unknown) (unknown) Smoking Status: (units (unknown) date) Unknown if ever unknown) smoked (unknown) (no (unknown) (unknown) Social History (units (unknown) date) (Reviewed unknown) 11/11/21 @ 09:06 by Griffin Quiñones DO) (unknown) (no (unknown) (unknown) Son reports (units (un known) date) patient has had unknown) more tearfulness and labile emotions over the last (unknown) (no (unknown) (unknown) Temperature 97.1 (units (unknown) date) F L unknown) (unknown) (no (unknown) (unknown) Time Spent With (units (unknown) date) Patient unknown) (unknown) (no (unknown) (unknown) Unspecified (units (un known) date) dementia without unknown) behavioral disturbance (unknown) (no (unknown) (unknown) Vital Signs (units (un known) date) unknown) (unknown) (no (unknown) (unknown) [Embedded Image (units (unknown) date) Not Available] unknown) (unknown) (no (unknown) (unknown) acute distress (units (unknown) date) unknown) (unknown) (no (unknown) (unknown) am, paroxetine, (units (unknown) date) and quetiapine 25 unknown) mg bedtime. He also receives trazodone at (unknown) (no (unknown) (unknown) bedtime. (units (unkno wn) date) Uncertain as to unknown) what has led to his behavioral dysregulation. There (unknown) (no (unknown) (unknown) been swollen for (units (unknown) date) months. unknown) (unknown) (no (unknown) (unknown) bruises/scabs on (units (unknown) date) bilateral upper unknown) extremities, 2+ edema to the lower extremities (unknown) (no (unknown) (unknown) carotids no (units (un known) date) bruits unknown) (unknown) (no (unknown) (unknown) consider (units (unkno wn) date) titrating this unknown) up. Will defer that to his PCP. (unknown) (no (unknown) (unknown) extraocular (units (un known) date) movements intact, unknown) sclerae anicteric, nares patent, oropharynx (unknown) (no (unknown) (unknown) fair, mild (units (unk nown) date) erythema around unknown) the left eye with injected sclera (unknown) (no (unknown) (unknown) household (units (unkn own) date) members: other unknown) (unknown) (no (unknown) (unknown) impaired (units (unkno wn) date) unknown) (unknown) (no (unknown) (unknown) in the locked (units ( unknown) date) memory care unit unknown) as a result. He has been on as needed clonazep (unknown) (no (unknown) (unknown) is no obvious (units ( unknown) date) infection. Urine unknown) cutlure negative. He does have elevated (unknown) (no (unknown) (unknown) likely secondary (units (unknown) date) to frequent unknown) falls. (unknown) (no (unknown) (unknown) organomegaly or (units (unknown) date) masses unknown) appreciated (unknown) (no (unknown) (unknown) reveals an intact (units (unknown) date) soft and hard unknown) palate with moist mucous membranes, dentition is (unknown) (no (unknown) (unknown) today; this time (units (unknown) date) is exclusive of unknown) procedural time. (unknown) (no (unknown) (unknown) troponin, but no (units (unknown) date) focal cardiac unknown) symptoms. He does have some generalized pain, (unknown) (no (unknown) (unknown) will hold. Would (units (unknown) date) recommend to unknown) discontinue this at discharge. (unknown) (no (unknown) (unknown) year. Likely (units (u nknown) date) related to his unknown) dementia. He is on Paxil at baseline. Could Result panel 24 (unknown) (no (unknown) (unknown) (no value) (units (unk nown) date) unknown) (unknown) (no (unknown) (unknown) Date of Service: (units (unknown) date) 11/09/21 unknown) (unknown) (no (unknown) (unknown) (no value) (units (unk nown) date) unknown) (unknown) (no (unknown) (unknown) 0.4 mg PO QAM (units ( unknown) date) unknown) (unknown) (no (unknown) (unknown) 0.5 mg PO DAILY (units (unknown) date) PRN (Reason: unknown) Agitation) (unknown) (no (unknown) (unknown) 11/10/21 06:10 (units (unknown) date) unknown) (unknown) (no (unknown) (unknown) 11/11/21 1258 (units ( unknown) date) unknown) (unknown) (no (unknown) (unknown) 1 applic TOPICAL (units (unknown) date) DAILY PRN unknown) (Reason: Rash) (unknown) (no (unknown) (unknown) 1.5 mg PO DAILY (units (unknown) date) unknown) (unknown) (no (unknown) (unknown) 10 meq PO TID (units ( unknown) date) unknown) (unknown) (no (unknown) (unknown) 10 mg PO BID (units (u nknown) date) unknown) (unknown) (no (unknown) (unknown) 100 mg PO QAM (units ( unknown) date) unknown) (unknown) (no (unknown) (unknown) 12.5 mg PO QAM (units (unknown) date) unknown) (unknown) (no (unknown) (unknown) 20 mg PO QAM (units (u nknown) date) unknown) (unknown) (no (unknown) (unknown) 25 mg PO BEDTIME (units (unknown) date) unknown) (unknown) (no (unknown) (unknown) 25 mg PO BID (units (u nknown) date) Qty: 60 0RF unknown) (unknown) (no (unknown) (unknown) 40 mg PO QAM (units (u nknown) date) unknown) (unknown) (no (unknown) (unknown) 500 mg PO BID (units ( unknown) date) Qty: 60 0RF unknown) (unknown) (no (unknown) (unknown) 60 mg PO QAM (units (u nknown) date) unknown) (unknown) (no (unknown) (unknown) 80 mg PO BEDTIME (units (unknown) date) unknown) (unknown) (no (unknown) (unknown) Comment: (units (unkno wn) date) unknown) (unknown) (no (unknown) (unknown) Comment: (units (unkno wn) date) placement unknown) (unknown) (no (unknown) (unknown) Discharge (units (unkn own) date) Summary unknown) (unknown) (no (unknown) (unknown) [facility] (units (unknown) date) [address] [place] [address] unknown) [place] [address] (unknown) (no (unknown) (unknown) (no value) (units (unk nown) date) unknown) (unknown) (no (unknown) (unknown) acetaminophen (units ( unknown) date) 500 mg Capsule unknown) (unknown) (no (unknown) (unknown) allopurinol 100 (units (unknown) date) mg tablet unknown) (unknown) (no (unknown) (unknown) atorvastatin 80 (units (unknown) date) mg tablet unknown) (unknown) (no (unknown) (unknown) clonazepam 0.5 (units (unknown) date) mg tablet unknown) (unknown) (no (unknown) (unknown) dicyclomine 10 (units (unknown) date) mg capsule unknown) (unknown) (no (unknown) (unknown) famotidine 40 mg (units (unknown) date) tablet unknown) (unknown) (no (unknown) (unknown) furosemide 40 mg (units (unknown) date) tablet unknown) (unknown) (no (unknown) (unknown) metoprolol (units (unk nown) date) tartrate 25 mg unknown) tablet (unknown) (no (unknown) (unknown) nystatin 100,000 (units (unknown) date) unit/gram cream unknown) (unknown) (no (unknown) (unknown) paroxetine HCl (units (unknown) date) 20 mg tablet unknown) (unknown) (no (unknown) (unknown) potassium (units (unkn own) date) chloride 10 mEq unknown) capsule, extended release (unknown) (no (unknown) (unknown) quetiapine 25 mg (units (unknown) date) tablet unknown) (unknown) (no (unknown) (unknown) tamsulosin 0.4 (units (unknown) date) mg capsule unknown) (unknown) (no (unknown) (unknown) trazodone 50 mg (units (unknown) date) tablet unknown) (unknown) (no (unknown) (unknown) warfarin (units (unkno wn) date) [Coumadin] 3 mg unknown) Tablet (unknown) (no (unknown) (unknown) Hazel' is an (units (unknown) date) 89-year-old unknown) gentleman with dementia who resides at [facility] (unknown) (no (unknown) (unknown) (past 8 hours): (units (unknown) date) unknown) (unknown) (no (unknown) (unknown) -adjust his (units (un known) date) Seroquel from 25 unknown) mg at bedtime to 12.5 mg scheduled every 6 hours, (unknown) (no (unknown) (unknown) -continue (units (unkn own) date) eyedrops. unknown) (unknown) (no (unknown) (unknown) -continue (units (unkn own) date) scheduled unknown) Tylenol, discharged on scheduled tylenol instead of PRN (unknown) (no (unknown) (unknown) -fast score is (units (unknown) date) still well above unknown) 7, and he would not be a candidate for hospice. (unknown) (no (unknown) (unknown) 0.088.? On (units (unk nown) date) follow-up was unknown) 0.091.? He denied any focal chest pain.? UA revealed (unknown) (no (unknown) (unknown) 11/09/21 13:17 (units (unknown) date) unknown) (unknown) (no (unknown) (unknown) 11/09/21 15:57 (units (unknown) date) unknown) (unknown) (no (unknown) (unknown) 11/09/21 16:32 (units (unknown) date) unknown) (unknown) (no (unknown) (unknown) 1. 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 Coronary (units (un known) date) artery disease unknown) (unknown) (no (unknown) (unknown) 3. Suspected (units (u nknown) date) chronic unknown) congestive heart failure (unknown) (no (unknown) (unknown) 4. Left eye (units (un known) date) conjunctivitis unknown) (unknown) (no (unknown) (unknown) 5. Paroxysmal (units ( unknown) date) atrial unknown) fibrillation (unknown) (no (unknown) (unknown) 6. Depression (units ( unknown) date) unknown) (unknown) (no (unknown) (unknown) ABD: Soft, (units (unkn own) date) nontender, unknown) nondistended, bowel sounds present in all 4 quadrants, no (unknown) (no (unknown) (unknown) Adjustment (units (unk nown) date) disorder with unknown) depressed mood (unknown) (no (unknown) (unknown) Age/Sex: 89 / M (units (unknown) date) unknown) (unknown) (no (unknown) (unknown) Attending (units (unkn own) date) Provider: unknown) Justyna Keenan (unknown) (no (unknown) (unknown) CHEST: (units (unkno wn) date) Respiratory unknown) excursions symmetric, clear to auscultation bilaterally (unknown) (no (unknown) (unknown) CV: Regular rate (units (unknown) date) and rhythm, no unknown) murmurs, rubs, gallops, PMI nondisplaced (unknown) (no (unknown) (unknown) Changed (units (unkno wn) date) unknown) (unknown) (no (unknown) (unknown) Chief complaint: (units (unknown) date) fall unknown) (unknown) (no (unknown) (unknown) Consult to (units (unk nown) date) Discharge unknown) Planning Routine (unknown) (no (unknown) (unknown) [place] [facility] [place] Medical Office Asst unknown) Stat (unknown) (no (unknown) (unknown) Consults: (units (unkn own) date) unknown) (unknown) (no (unknown) (unknown) Continued (units (unkn own) date) unknown) (unknown) (no (unknown) (unknown) : 1930 (units (unknown) date) Acct:[id number] unknown) (unknown) (no (unknown) (unknown) Date Patient (units (u nknown) date) Seen: 11/11/21 unknown) (unknown) (no (unknown) (unknown) Date of (units (unkno wn) date) admission: unknown) (unknown) (no (unknown) (unknown) Diet/Activity/Tr (units (unknown) date) eatments unknown) (unknown) (no (unknown) (unknown) Diet: Diet as (units ( unknown) date) Tolerated unknown) (unknown) (no (unknown) (unknown) Discharge Data (units (unknown) date) unknown) (unknown) (no (unknown) (unknown) Discharge Date: (units (unknown) date) 11/11/21 unknown) (unknown) (no (unknown) (unknown) Discharge (units (unkn own) date) Diagnosis: unknown) (unknown) (no (unknown) (unknown) Discharge Plan (units (unknown) date) unknown) (unknown) (no (unknown) (unknown) Discharge (units (unkn own) date) Providers unknown) (unknown) (no (unknown) (unknown) Discharge orders (units (unknown) date) + Medications unknown) (unknown) (no (unknown) (unknown) Discharge (units (unkn own) date) provider: unknown) (unknown) (no (unknown) (unknown) Discontinued (units (u nknown) date) unknown) (unknown) (no (unknown) (unknown) Disorientation, (units (unknown) date) unspecified unknown) (unknown) (no (unknown) (unknown) Doctor (units (unkno wn) date) Miscellaneous, MD unknown) (unknown) (no (unknown) (unknown) EXTR: Warm, well (units (unknown) date) perfused, no unknown) clubbing/cyanosis /edema, multiple new and old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
[2022-01-21 10:46] LABS: BASOPHILS % (AUTO) 0.3 %; HCT - HEMATOCRIT 29.2 % (42.0-52.0); HGB - HEMOGLOBIN 8.8 g/dL (14.0-18.0); LYMPHOCYTES # (AUTO) 0.6 10^3/uL (1.5-3.5); LYMPHOCYTES % (AUTO) 4.4 %; MEAN CORPUSCULAR HEMOGLOBIN 30.8 pg (27.0-31.0); MEAN CORPUSCULAR HGB CONC 30.1 g/dL (32.0-36.0); MEAN CORPUSCULAR VOLUME 102.1 fL (80.0-94.0); MEAN PLATELET VOLUME 9.8 fL (7.4-11.4); MONOCYTES # (AUTO) 0.8 10^3/uL (0.0-1.0); NEUTROPHILS # (AUTO) 11.8 10^3/uL (1.5-6.6); PLT - PLATELET COUNT 101 10^3/uL (130-450); RED BLOOD COUNT 2.86 10^6/uL (4.70-6.10); RED CELL DISTRIBUTION WIDTH 17.4 % (12.0-15.0); WHITE BLOOD COUNT 13.4 x10^3/uL (4.8-10.8)
--- NOTE | 2022-01-21 10:58 | XRAY Report ---
PROCEDURE: Chest 1 View X-Ray INDICATIONS: chest pain TECHNIQUE: One view of the chest was acquired. COMPARISON: CT 09/30/2020 FINDINGS: Surgical changes and devices: Left chest wall pulse generator with electrode leads. Sternotomy wires . Lungs and pleura: Right greater than left moderate diffuse lung disease. Mild, right greater than le ft pleural effusions. Mediastinum: Cardiomegaly. Aortic calcifications. Bones and chest wall: No suspicious bony lesions. Overlying soft tissues appear unremarkable. IMPRESSION: Right greater than left mild to moderate lung disease and small pleural effusions. This could represe nt edema or infectious or inflammatory airspace process. Consider future imaging surveillance to asse ss for resolution. Reviewed by: Aurelio Bright MD on 01/21/2022 10:57 AM PDT Approved by: Aurelio Bright MD on 01/21/2022 10:57 AM PDT Station ID: [id number]
[2022-01-21 11:04] LABS: ALBUMIN 3.2 g/dL (3.2-5.5); ALBUMIN/GLOBULIN RATIO 0.9 (1.0-2.2); BILIRUBIN,TOTAL 1.2 mg/dL (0.2-1.0); CALCIUM 9.2 mg/dL (8.5-10.3); CREATININE 1.8 mg/dL (0.6-1.2); TOTAL PROTEIN 6.6 g/dL (6.7-8.2)
--- NOTE | 2022-01-21 11:04 | CT Report ---
PROCEDURE: HEAD WO INDICATIONS: altered LOC TECHNIQUE: Noncontrast 4.5 mm thick angled axial sections acquired from the foramen magnum to the vertex. For r adiation dose reduction, the following was used: automated exposure control, adjustment of mA and/or kV according to patient size. COMPARISON: None. FINDINGS: Image quality: Excellent CSF spaces: Basal cisterns are patent. Lateral ventricles are symmetric. Volume: Periventricular white matter hypoattenuation is commonly seen with chronic small vessel disea se. Volume loss is present. These findings are moderate. Brain: No intracranial hemorrhage. Horner-white differentiation is grossly maintained. Vascular calcifi cations are present. Craniofacial structures: No displaced fracture. Sinuses are clear. Orbits are intact. Contusion in th e occipital scalp. IMPRESSION: No acute intracranial abnormality. Chronic volume loss. Possible posterior scalp contusion. Reviewed by: Aurelio Bright MD on 01/21/2022 11:03 AM PDT Approved by: Aurelio Bright MD on 01/21/2022 11:03 AM PDT Station ID: [id number]
[2022-01-21] MEDS ORDERED: cefTRIAXone 1 GM in SODIUM CHLORIDE 0.9% MINIBAG 100 ML IV STA (11:07)
[2022-01-21] MEDS ORDERED: AZITHROMYCIN INJ 500 MG in SODIUM CHLORIDE 0.9% 250 ML IV STA (11:07)
[2022-01-21 11:22] LABS: INR 1.4 (0.8-1.2); PT - PROTHROMBIN TIME 15.6 secs (9.9-12.6)
[2022-01-21 13:03] LABS: B. PARAPERTUSSIS- RESP PCR PAN NOT DETECTED; B. PERTUSSIS- RESP PCR PANEL NOT DETECTED; C. PNEUMONIAE- RESP PCR PANEL NOT DETECTED; CORONAVIRUS 229E-RESP PCR NOT DETECTED; CORONAVIRUS HKU1-RESP PCR NOT DETECTED; CORONAVIRUS NL63-RESP PCR NOT DETECTED; CORONAVIRUS OC43-RESP PCR NOT DETECTED; HUMAN METAPNEUMOVIRUS NOT DETECTED; INFLUENZA A- RESP PCR PANEL NOT DETECTED; INFLUENZA B - RESP PCR PANEL NOT DETECTED; M. PNEUMONIAE- RESP PCR PANEL NOT DETECTED; PARAINFLUENZA VIRUS 1 NOT DETECTED; PARAINFLUENZA VIRUS 2 NOT DETECTED; PARAINFLUENZA VIRUS 3 NOT DETECTED; PARAINFLUENZA VIRUS 4 NOT DETECTED; RHINOVIRUS/ENTEROVIRUS NOT DETECTED; RSV- RESP PCR PANEL NOT DETECTED; SARS-CoV-2 -RESP PCR PANEL NOT DETECTED
[2022-01-21] MEDS ORDERED: SODIUM CHLORIDE FLUSH 0.9% 10 ML SYRINGE IVP PRN (13:25)
[2022-01-21] MEDS ORDERED: IBUPROFEN 400 MG TABLET PO PRN (13:31)
[2022-01-21] MEDS ORDERED: ONDANSETRON 4 MG/2 ML VIAL IVP PRN (13:31)
[2022-01-21] MEDS ORDERED: ACETAMINOPHEN 325 MG TABLET PO PRN (13:31)
[2022-01-21] MEDS ORDERED: ONDANSETRON ODT 4 MG TABLET TL PRN (13:31)
[2022-01-21] MEDS: SODIUM CHLORIDE 0.9% 1,000 ML IV SCH ×2 (14:02→23:54)
--- NOTE | 2022-01-21 15:43 | HISTORY & PHYSICAL EXAMINATION ---
Chief Complaint - Chief Complaint Chief Complaint: Weakness and hypoxia History of Present Illness - Admitted From Admitted From:: [facility] - History Obtained From Records Reviewed: [facility] History obtained from: Dr. Bennett, Nurse at [facility] Care, son Rommel Exam Limitations: Dementia - History of Present Illness HPI Comment/Other: 89-year-old gentleman with severe dementia and lives at [facility]. He is recently had a ground-level fall, and is getting weaker and weaker and was found to have low oxygen today. So ambulance was called and he was brought in by EMS. Because of his dementia, the history in the ER was obtained from his caregiver. He did get a COVID booster yesterday. 1 episode of emesis yesterday. In the emergency room his temperature was 37.2, heart rate 95, respiration 18, blood pressure 122/74 and he was 84% on room air. He was a muted elderly gentleman with a vacant stare. He was not in any respiratory distress but he had rhonchi in his left lung base. White cell count was elevated at 13.4. He is anemic to 8.8 g of hemoglobin. Electrolytes showed a creatinine of 1.8 and his baseline is 1.2. Chest x-ray showed bilateral airspace disease, right greater than left. We are being asked to admit him to the hospitalist service for pneumonia. I spoke to [facility], memory care unit. Brittney is one of his nurses on the unit. She says that she started working there over a year ago and he was already a full-time resident there. He is [place] and prefers to speak Cameroonian and has a very thick accent. Sometimes it is very hard to understand him. He is usually a silent man, not a huge talker". He gets occasionally combative. Last night he was combative and did not want to go to bed. He kept on trying to get out of bed and walk and was shaking his fist at her. Over the last 2 months he has been getting increasingly unsteady, forgets that he is off balance and has been falling more and more. He is declining in strength, and is now using a wheelchair to get him to the dining room. He used to be able to walk there. Brittney does not remember him having a cough, congestion. He does feed himself in the dining room but the son does provide snacks in the patient's room. He was eating crackers in the air brake tester hours and had emesis at 4 AM. Brittney sometimes wonders if he is aspirating. The gentleman is incontinent of urine and stool. That is now new. In assessing him last night, before she left shift, he was the same status he always was. It was only when she got to work today that she found out that he had been taken in to the emergency room. History - Past Medical History Cardiovascular: reports: Congestive heart failure, Hypertension, Atrial fibrillation Neuro: reports: CVA : reports: Other Musculoskeletal: reports: Gout Derm: reports: Other - Past Surgical History General: reports: Cholecystectomy Cardiovascular: reports: Pacemaker - Family & Social History Family History Comment/Other: Parents in their 50s. They do not know what of. He is 4 of 5 children. 1 sister after several strokes, 1 brother is 95 and in poor health in [place], 1 sister lives in [facility] and has dementia. 2 sons and 1 daughter. Daughter is not involved in his life. Both sons are healthy. Living arrangement: shelter ([facility]) Living Situation: With caregiver(s) Social History Notes: Born and raised outside [place] in [place]. [place]. Was in the [employer] in the [place] after marrying his . Got stationed in [place] in the [employer] that he was going to go on. 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 From [place] he came to [facility] with his son for 6 months, and then they really could not take care of him anymore because of his dementia and has been living at [facility] for the last year and a half. Mom 2 years and 10 days ago. He used to smoke and he drank. But he has not smoked for 30 or 40 years. He loves beer but no history of alcoholism. Rarely drank a gin and tonic. Has not drank for years. - Substance History Use: Uses substance without health or social issues: NONE Abuse: Recurrent use of substance despite neg consequences: NONE Dependence: Experiences withdrawal or developed tolerances: NONE - POLST Patient has POLST: No POLST Status: DNR Meds/Allgy - Home Medications Home Medications: Ambulatory Orders Medication Instructions Recorded Confirmed Dicyclomine [Bentyl] 10 mg PO DAILY 05/08/20 01/21/22 Famotidine [Acid-Pep] 40 mg PO DAILY 05/08/20 01/21/22 Furosemide [Lasix] 40 mg PO DAILY 05/08/20 01/21/22 PARoxetine [Paxil] 20 mg PO DAILY 05/08/20 01/21/22 Tamsulosin [Flomax] 0.4 mg PO DAILY 05/08/20 01/21/22 allopurinoL [Zyloprim] 100 mg PO DAILY 05/08/20 01/21/22 clonazePAM [Clonazepam] 0.5 mg PO BID 05/08/20 01/21/22 Atorvastatin Calcium [Lipitor] 80 mg ORAL DAILY 08/30/20 01/21/22 Metoprolol Tartrate [Lopressor] 12.5 mg PO DAILY 08/30/20 01/21/22 Warfarin [Coumadin] 1.5 mg PO DAILY 08/30/20 09/30/20 Aspirin [Vazalore] 81 mg PO DAILY 01/21/22 01/21/22 Potassium Chloride 10 meq PO DAILY 01/21/22 01/21/22 Senna [Senokot] 8.6 mg PO BID 01/21/22 01/21/22 traZODone [Desyrel] 25 mg PO HS 01/21/22 01/21/22 - Allergies Allergies/Adverse Reactions: Allergies Allergy/AdvReac Type Severity Reaction Status Date / Time Penicillins Allergy Rash Verified 08/26/21 13:10 Review of Systems - Other Findings Other Findings: Unable to obtain review of systems other than what was noted in HPI from ER record and the caregiver at [facility] Prior Level of Functionality: 2 months ago was ambulating with a walker, now so weak he is put in a wheelchair and taken to the dining room. He needs complete assistance with bathing himself, toileting, and is given his meds. He is able to feed himself. Exam - Vital Signs Reviewed Vital Signs: Yes Vital Signs: Vital Signs x48h Temp Pulse Pulse Resp BP BP Pulse Ox 01/21/22 14:12 36.8 C 70 18 125/69 98 01/21/22 13:09 36.3 C L 70 19 126/72 99 01/21/22 12:22 24 98 01/21/22 12:21 20 86 L 01/21/22 12:07 72 33 H 142/63 H 100 01/21/22 11:47 71 18 136/62 H 100 01/21/22 11:03 73 19 138/60 H 100 01/21/22 10:19 37.2 C 95 18 122/70 84 L O2 Flow Rate 01/21/22 14:12 3 01/21/22 13:09 01/21/22 12:22 3 01/21/22 12:21 01/21/22 12:07 4 01/21/22 11:47 01/21/22 11:03 01/21/22 10:19 - Physical Exam General Appearance: positive: Other (Asleep, breathing comfortably, opens eyes to my voice, looks at me and then immediately goes back to sleep. Nonverbal.) Eyes Bilateral: positive: PERRL, EOMI ENT: positive: Other (Lips are dry, tip of tongue is dry. Top of scalp is balding with multiple AK's and SKs. 1 small scalp was cut on the right frontal scalp. 1 tiny fang in the bridge of his nose.) Neck: positive: Other (Slight jugular venous distention at 30 degrees.). negative: Stiff neck Respiratory: positive: No respiratory distress, Rhonchi (Right axilla, left anterior chest). negative: Wheezes, Rales Cardiovascular: positive: Irregularly irregular. negative: Tachycardia Abdomen: positive: Non-tender (Soft.No grimacing of pain, no change of face expression with palpation), No organomegaly, Nml bowel sounds, No distention Skin: positive: Warm, Dry, Other (Both forearms with ecchymosis. 1 small skin tear in the right arm above the elbow. Nonbleeding.) Extremities: positive: Full ROM, No pedal edema Neurologic/Psychiatric: positive: Other (Opens eyes to my voice, and touch. Looks at me and does focus but nonverbal. Does frown when I try and roll him over for lung exam, and pulled his feet away when I do Babinski's. Arms and legs move symmetrically away from my noxious stimuli.) Conclusion/Plan - Problem List (1) Pneumonia Conclusion/Plan: His caregiver is suggesting possible aspiration pneumonia. She says she is never witnessed it but she always wonders since he eats his snacks in his room l ruth he did this morning. No antecedent history of fever, chills, cough, congestion. Nevertheless he has a white cell count, hypoxia and bilateral infiltrates. Plan: Treat as community-acquired pneumonia, Rocephin and azithromycin. Blood cultures have been done Oxygen as needed Qualifiers: Pneumonia type: due to unspecified organism Laterality: bilateral Lung location: unspecified part of lung Qualified Code(s): J18.9 - Pneumonia, unspecified organism (2) Acute on chronic renal insufficiency Conclusion/Plan: [place] May be 2 years. Creatinine is 1.2 at baseline. Lips are dry, and creatinine is 1.8 so assume there is some element of dehydration. Plan: Avoid nephrotoxic agents IV fluids, decrease or stop IV fluids once able to be awake and take p.o. (3) Dementia Conclusion/Plan: Longstanding. Followed by TOM Rosales at the senior living facility. He is on Paxil, clonazepam and that will be renewed. While he does get combative, and uncooperative, the nurse to take his care of him does not describe him ever getting violent. She says that he just likes to shake his fist at you. I had a long conversation with his son about advance care planning. Please see separate note Qualifiers: Alzheimer's disease onset: unspecified onset Dementia severity: moderate Dementia behavioral or psychological symptom: with agitation (4) Hypertension Conclusion/Plan: He is on a beta-patric, Lasix for history of congestive heart failure, and his chronic atrial fibrillation. Those will be resumed Qualifiers: Hypertension type: primary hypertension Qualified Code(s): I10 - Essential (primary) hypertension (5) Gout Conclusion/Plan: No evidence of an acute gout attack on exam. Will resume allopurinol. (6) Benign prostatic hyperplasia Conclusion/Plan: As neededResume Flomax. prn straight cath if it is required Qualifiers: Lower urinary tract symptom presence: symptoms present (7) Chronic atrial fibrillation Conclusion/Plan: Rate is controlled in the 70s. Blood pressure is also stable. Will resume his usual home medications which is the metoprolol as above and Coumadin. We will n eed to check daily INR since he is on antibiotics and Coumadin. (8) Anemia Conclusion/Plan: His hemoglobin has been dropping since 2019. He was 14.4, and was 13 in April 2020. 12.5 in September 2020 and now is 8.8. With his gradual decline over the last few months, superimposed on his dementia, could he have malnutrition as cause of anemia. We will need to find out his previous weights. We will check stool for fecal blood. Check anemia panel. I do not know how much further on going to go forward if the son ends up focusing on palliative measures. Qualifiers: Anemia type: unspecified type Qualified Code(s): D64.9 - Anemia, unspecified - Lab Results Lab results reviewed: Yes Fish Bones: 01/21/22 10:35 01/21/22 10:35
--- NOTE | 2022-01-21 17:04 | ADVANCE CARE PLANNING NOTE ---
Advance Care Planning - Planning Encounter Date: 01/21/22 Time: 17:01 Purpose: Establish CODE STATUS and goals of care with his power of litigation attorney Parties in Attendance: Hospitalist and son Rommel, on the phone Decisional Capacity of the Patient: Unable to participate. He is occasionally alert and able to communicate with his son but right now eyes closed, opens to see me but then goes back to sleep - Diagnosis for Encounter (1) Dementia Qualifiers: Alzheimer's disease onset: unspecified onset Dementia severity: moderate Dementia behavioral or psychological symptom: with agitation - Encounter Subjective/Patient's Story: Gradually progressive over the last decade. Relied a lot on his of many decades until she 2 years and 10 days ago. He came to live with his son's here on the [place] after her but it only lasted 6 months. He required mu ch more care than they realized and they transitioned him to [facility] memory care unit a year and a half ago. He has been stable there. However the nurse that takes care of him describes him as gently failing over the last couple of months. Increasing falls, and no longer able to walk with a walker to the dining room. They now have to take him via wheelchair. He is still able to feed himself but he is now become completely dependent with activities of daily living for dressing, bathing, toileting needs. This will be his first hospitalization since moving to the [place]. Son knows that he wants dad to be DO NOT RESUSCITATE. If we have done everything we can and his dad is not getting better, do not do any extraordinary measures to keep him alive. No CPR no intubation. What the son is not clear about is between now and that event. On the one hand he states that dad has been very clear even and his most brief is of lucid moments that he does not want to be alive anymore. He does not want to be living in a alf. He is miserable in his existence and would like to be let go and to be with his . But son is torn about that. He does not know if that is what he and his brother would like for their father. They have not really discussed quality of life. They are not aware that they could transition dad to comfort measures at [facility]. That dad does not have to be hospitalized and could be kept comfortable at [facility]. If he developed another pneumonia or urinary tract infection he could be given antibiotics there and if he makes it, then he would live another day. If he does not he can peacefully there without having to come to the hospital. Objective/Medical Story: 89-year-old gentleman with severe dementia and lives at [facility]. He is recently had a ground-level fall, and is getting weaker and weaker and was found to have low oxygen today. So ambulance was called and he was brought in by EMS. Because of his dementia, the history in the ER was obtained from his caregiver. He did get a COVID booster yesterday. 1 episode of emesis yesterday. In the emergency room his temperature was 37.2, heart rate 95, respiration 18, blood pressure 122/74 and he was 84% on room air. He was a muted elderly gentleman with a vacant stare. He was not in any respiratory dist ress but he had rhonchi in his left lung base. White cell count was elevated at 13.4. He is anemic to 8.8 g of hemoglobin. Electrolytes showed a creatinine of 1.8 and his baseline is 1.2. Chest x-ray showed bilateral airspace disease, right greater than left. We are being asked to admit him to the hospitalist service for pneumonia. I spoke to [facility], memory care unit. Brittney is one of his nurses on the unit. She says that she started working there over a year ago and he was already a full-time resident there. He is Pashto Romanian and prefers to speak Pashto and has a very thick accent. Sometimes it is very hard to understand him. He is usually a silent man, not a huge talker". He gets occasionally combative. Last night he was combative and did not want to go to bed. He kept on trying to get out of bed and walk and was shaking his fist at her. Over the last 2 months he has been getting increasingly unsteady, forgets that he is off balance and has been falling more and more. He is declining in strength, and is now using a wheelchair to get him to the dining room. He used to be able to walk there. Brittney does not remember him having a cough, congestion. He does feed himself in the dining room but the son does provide snacks in the patient's room. He was eating crackers in the early childhood associate hours and had emesis at 4 AM. Brittney sometimes wonders if he is aspirating. The gentleman is incontinent of urine and stool. That is now new. In assessing him last night, before she left shift, he was the same status he always was. It was only when she got to work today that she found out that he had been taken in to the emergency room. - Past Medical History Cardiovascular: reports: Congestive heart failure, Hypertension, Atrial fibrillation Neuro: reports: CVA : reports: Other Musculoskeletal: reports: Gout Derm: reports: Other - Past Surgical History General: reports: Cholecystectomy Cardiovascular: reports: Pacemaker Goals of Care: 1. At this point it is to get him through his acute episode of care. I explained that the patient will be here anywhere from 2 to 3 days to get through this acute episode of pneumonia. 2. Son would like his dad to return to [facility]. He does not want to have to move his dad to any other facility at this time. Plan: 1. Son is a treasury agent with [employer]. He would like to speak to his brother on his day off, which is tomorrow, and discuss dad statements and if they want to transition him to more palliative/comfort measures. He will let us know. 2. DO NOT RESUSCITATE status. Code Status: Do Not Attempt Resuscitation Time spent on advance care plannin minutes
--- NOTE | 2022-01-21 18:00 | PHARMACY PROGRESS NOTE ---
- Best Possible Medication History Admit Date and Time: 01/21/22 0582 Processed by: Pharmacy Medication History completed: Yes Secondary Source(s): Facility MAR as ONLY source As the person ultimately responsible for medication therapy, providers are able to order a medication from an existing home medication list in [facility] via the "Reconcile Routine" prior to Confirmation of that medication by coding support specialist. Such practice is discouraged except when the physician, in their clinical judgment, deems that a medical need exists for a medication without regard to previous use.
[2022-01-21] MEDS: SODIUM CHLORIDE FLUSH 0.9% 10 ML SYRINGE IVP SCH ×2 (18:02→23:24)
[2022-01-21 18:11] LABS: ABSOLUTE RETICS # AUTO 0.042 10^6/uL (0.020-0.110); RED BLOOD COUNT 3.06 10^6/uL (4.70-6.10); RETICULOCYTE COUNT % (AUTO) 1.36 % (0.5-2.3)
[2022-01-21 18:42] LABS: FERRITIN 149.1 ng/mL (23.9-336.2)
[2022-01-21 18:53] LABS: % IRON SATURATION 5 % (20-50); IRON 12 ug/dL (45-182); TOTAL IRON BINDING CAPACITY 244 ug/dL (250-450); TRANSFERRIN 174 mg/dL (180-329)
[2022-01-21] MEDS: traZODone 50 MG TABLET PO SCH (21:33)
[2022-01-21] MEDS: clonazePAM 0.5 MG TABLET PO SCH (21:33)
--- NOTE | 2022-01-22 07:58 | PROVIDER PROGRESS NOTE ---
Subjective - Prog Note Date Prog Note Date: 01/22/22 Prog Note Time: 08:01 - Subjective Pt reports feeling: Improved Subjective: Complete turnaround from last night to tonight. Last night he was laying in bed with stare at me when I touch him or spoke to him but nonverbal. This morning he is spontaneously cheerful, conversing, telling me about [place] and telling me about [place]. He is surprised to be here. He does not remember getting here. But then when I ask him where "here" is he smiles and says "I do not know". Current Medications - Current Medications Current Medications: Active Medications Acetaminophen (Acetaminophen 325 Mg Tablet) 650 mg PO Q4HR PRN PRN Reason: Pain 1 to 4, or Fever Allopurinol (Allopurinol 100 Mg Tablet) 100 mg PO DAILY PENDING SALE TO [facility] Atorvastatin Calcium (Atorvastatin 40 Mg Tablet) 80 mg PO QPM PENDING SALE TO [facility] Clonazepam (Clonazepam 0.5 Mg Tablet) 0.5 mg PO BID PENDING SALE TO [facility] Last Admin: 01/21/22 21:33 Dose: Not Given Enoxaparin Sodium (Enoxaparin 40 Mg/0.4 Ml Syringe) 40 mg SUBQ DAILY PENDING SALE TO [facility] Ferrous Gluconate (Ferrous Gluconate 324 Mg Tablet) 324 mg PO DAILYWM PENDING SALE TO [facility] Sodium Chloride (Normal Saline 0.9%) 1,000 mls @ 100 mls/hr IV .Q10H PENDING SALE TO [facility] Stop: 01/22/22 09:59 Last Admin: 01/21/22 23:54 Dose: 100 mls/hr Iron Dextran 1,500 mg/ Sodium (Chloride) 530 mls @ 132.5 mls/hr IV ONCE ONE Stop: 01/22/22 07:53 Ibuprofen (Ibuprofen 400 Mg Tablet) 400 mg PO Q4HR PRN PRN Reason: Pain 1 to 4 Metoprolol Tartrate (Metoprolol Tartrate 25 Mg Tablet) 12.5 mg PO DAILY PENDING SALE TO [facility] Multivitamins (Multivitamin Tablet) 1 tab PO DAILYWM PENDING SALE TO [facility] Ondansetron HCl (Ondansetron Odt 4 Mg Tablet) 4 mg TL Q6HR PRN PRN Reason: Nausea / Vomiting Ondansetron HCl (Ondansetron 4 Mg/2 Ml Vial) 4 mg IVP Q6HR PRN PRN Reason: Nausea / Vomiting Paroxetine HCl (Paroxetine 10 Mg Tablet) 20 mg PO DAILY PENDING SALE TO [facility] Sodium Chloride (Sodium Chloride Flush 0.9% 10 Ml Syringe) 10 ml IVP PRN PRN PRN Reason: NEEDED PER PROVIDER ORDERS Sodium Chloride (Sodium Chloride Flush 0.9% 10 Ml Syringe) 10 ml IVP 0100,0900,1700 PENDING SALE TO [facility] Last Admin: 01/21/22 23:24 Dose: Not Given Tamsulosin HCl (Tamsulosin 0.4 Mg Capsule) 0.4 mg PO DAILY PENDING SALE TO [facility] Trazodone HCl (Trazodone 50 Mg Tablet) 25 mg PO HS PENDING SALE TO [facility] Last Admin: 01/21/22 21:33 Dose: Not Given Dicyclomine [Bentyl] 10 mg PO BID 05/08/20 Famotidine [Acid-Pep] 40 mg PO QPM 05/08/20 Furosemide [Lasix] 60 mg PO DAILY 05/08/20 PARoxetine [Paxil] 20 mg PO DAILY 05/08/20 Tamsulosin [Flomax] 0.4 mg PO DAILY 05/08/20 allopurinoL [Zyloprim] 100 mg PO DAILY 05/08/20 clonazePAM [Clonazepam] 0.5 mg PO BID 05/08/20 Atorvastatin Calcium [Lipitor] 80 mg ORAL QPM 08/30/20 Metoprolol Tartrate [Lopressor] 12.5 mg PO DAILY 08/30/20 Acetaminophen [Tylenol] 500 mg PO BID 01/21/22 Acetaminophen [Tylenol] 500 mg PO Q4H PRN 01/21/22 Aspirin [Vazalore] 81 mg PO DAILY 01/21/22 Nystatin 1 applic TOP PRN PRN 01/21/22 Potassium Chloride 10 meq PO TID 01/21/22 QUEtiapine [SEROquel] 25 mg PO BID 01/21/22 Senna [Senokot] 8.6 mg PO BID 01/21/22 clonazePAM [KlonoPIN] 0.5 mg PO Q24H PRN 01/21/22 traZODone [Desyrel] 25 mg PO HS 01/21/22 Objective - Vital Signs/Intake & Output Reviewed Vital Signs: Yes Vital Signs: Vital Signs x48h Temp Pulse Resp BP Pulse Ox 01/22/22 07:27 36.8 C 78 20 153/77 H 94 Intake & Output: Intake & Output 01/19/22 01/20/22 01/21/22 01/22/22 23:59 23:59 23:59 23:59 Intake Total 1436.667 Balance 1436.667 - Objective General Appearance: positive: Alert, Other (much, much more alert, smiling, flirting, and conversing pleasantly) Eyes Bilateral: positive: PERRL, EOMI ENT: positive: No signs of dehydration Neck: positive: No JVD. negative: Stiff neck Respiratory: positive: No respiratory distress, Rhonchi (Right midlung. I have him sit up and give me a big cough and the rhonchi disappear.). negative: Wheezes, Rales Cardiovascular: positive: Regular rate & rhythm Abdomen: positive: Non-tender, No organomegaly, Nml bowel sounds, No distention Skin: positive: Warm, Dry Extremities: positive: Full ROM, No pedal edema Neurologic/Psychiatric: positive: CN's nml (2-12), Motor nml, Disoriented to place, Disoriented to time - Lab Results Fish Bones: 01/22/22 08:06 01/22/22 08:06 Other Labs: Lab Results x24hrs 01/21/22 01/21/22 01/21/22 Range/Units 18:00 18:00 18:00 WBC (4.8-10.8) x10^3/uL RBC (4.70-6.10) 10^6/uL Hgb (14.0-18.0) g/dL Hct (42.0-52.0) % MCV (80.0-94.0) fL MCH (27.0-31.0) pg MCHC (32.0-36.0) g/dL RDW (12.0-15.0) % Plt Count (130-450) 10^3/uL MPV (7.4-11.4) fL Reticulocyte % (Auto) (0.5-2.3) % Neut # (Auto) (1.5-6.6) 10^3/uL Lymph # (Auto) (1.5-3.5) 10^3/uL [place] # (Auto) (0.0-1.0) 10^3/uL Eos # (Auto) (0.0-0.7) 10^3/uL Baso # (Auto) (0.0-0.1) 10^3/uL Absolute Nucleated RBC x10^3/uL Nucleated RBC % /100WBC Absolute Retic (0.020-0.110) 10^6/uL PT (9.9-12.6) secs INR (0.8-1.2) Sodium (135-145) mmol/L Potassium (3.5-5.0) mmol/L Chloride (101-111) mmol/L Carbon Dioxide (21-32) mmol/L Anion Gap (6-13) BUN (6-20) mg/dL Creatinine (0.6-1.2) mg/dL Estimated GFR (MDRD) (>89) Glucose (70-100) mg/dL Lactic Acid (0.5-2.2) mmol/L Calcium (8.5-10.3) mg/dL Iron 12 L (45-182) ug/dL TIBC 244 L (250-450) ug/dL % Saturation 5 L (20-50) % Transferrin 174 L (180-329) mg/dL Ferritin 149.1 (23.9-336.2) ng/mL Total Bilirubin (0.2-1.0) mg/dL AST (10-42) IU/L ALT (10-60) IU/L Alkaline Phosphatase (42-121) IU/L Lactate Dehydrogenase 154 (91-225) IU/L Total Protein (6.7-8.2) g/dL Albumin (3.2-5.5) g/dL Globulin (2.1-4.2) g/dL Albumin/Globulin Ratio (1.0-2.2) Lipase (22-51) U/L Vitamin B12 532 (180-914) pg/mL Nasal Adenovirus (PCR) Nasal B. parapertussis DNA (PCR) Nasal Coronavir 229E PCR Nasal Coronavir HKU1 PCR Nasal Coronavir NL63 PCR Nasal Coronavir OC43 PCR Nasal Enterovir/Rhinovir PCR Nasal Influenza B PCR Nasal Influenza A PCR Nasal Parainfluen 1 PCR Nasal Parainfluen 2 PCR Nasal Parainfluen 3 PCR Nasal Parainfluen 4 PCR Nasal RSV (PCR) Nasal B.pertussis DNA PCR Nasal C.pneumoniae (PCR) Mitchell Human Metapneumo PCR Nasal M.pneumoniae (PCR) Nasal SARS-CoV-2 (PCR) 01/21/22 01/21/2222 Range/Units 18:00 12:00 10:40 WBC (4.8-10.8) x10^3/uL RBC 3.06 L (4.70-6.10) 10^6/uL Hgb (14.0-18.0) g/dL Hct (42.0-52.0) % MCV (80.0-94.0) fL MCH (27.0-31.0) pg MCHC (32.0-36.0) g/dL RDW (12.0-15.0) % Plt Count (130-450) 10^3/uL MPV (7.4-11.4) fL Reticulocyte % (Auto) 1.36 (0.5-2.3) % Neut # (Auto) (1.5-6.6) 10^3/uL Lymph # (Auto) (1.5-3.5) 10^3/uL [place] # (Auto) (0.0-1.0) 10^3/uL Eos # (Auto) (0.0-0.7) 10^3/uL Baso # (Auto) (0.0-0.1) 10^3/uL Absolute Nucleated RBC x10^3/uL Nucleated RBC % /100WBC Absolute Retic 0.042 (0.020-0.110) 10^6/uL PT (9.9-12.6) secs INR (0.8-1.2) Sodium (135-145) mmol/L Potassium (3.5-5.0) mmol/L Chloride (101-111) mmol/L Carbon Dioxide (21-32) mmol/L Anion Gap (6-13) BUN (6-20) mg/dL Creatinine (0.6-1.2) mg/dL Estimated GFR (MDRD) (>89) Glucose (70-100) mg/dL Lactic Acid 1.0 (0.5-2.2) mmol/L Calcium (8.5-10.3) mg/dL Iron (45-182) ug/dL TIBC (250-450) ug/dL % Saturation (20-50) % Transferrin (180-329) mg/dL Ferritin (23.9-336.2) ng/mL Total Bilirubin (0.2-1.0) mg/dL AST (10-42) IU/L ALT (10-60) IU/L Alkaline Phosphatase (42-121) IU/L Lactate Dehydrogenase (91-225) IU/L Total Protein (6.7-8.2) g/dL Albumin (3.2-5.5) g/dL Globulin (2.1-4.2) g/dL Albumin/Globulin Ratio (1.0-2.2) Lipase (22-51) U/L Vitamin B12 (180-914) pg/mL Nasal Adenovirus (PCR) NOT DETECTED Nasal B. parapertussis DNA (PCR) NOT DETECTED Nasal Coronavir 229E PCR NOT DETECTED Nasal Coronavir HKU1 PCR NOT DETECTED Nasal Coronavir NL63 PCR NOT DETECTED Nasal Coronavir OC43 PCR NOT DETECTED Nasal Enterovir/Rhinovir PCR NOT DETECTED Nasal Influenza B PCR NOT DETECTED Nasal Influenza A PCR NOT DETECTED Nasal Parainfluen 1 PCR NOT DETECTED Nasal Parainfluen 2 PCR NOT DETECTED Nasal Parainfluen 3 PCR NOT DETECTED Nasal Parainfluen 4 PCR NOT DETECTED Nasal RSV (PCR) NOT DETECTED Nasal B.pertussis DNA PCR NOT DETECTED Nasal C.pneumoniae (PCR) NOT DETECTED Mitchell Human Metapneumo PCR NOT DETECTED Nasal M.pneumoniae (PCR) NOT DETECTED Nasal SARS-CoV-2 (PCR) NOT DETECTED 01/21/22 01/21/22 01/21/22 Range/Units 10:35 10:35 10:35 WBC 13.4 H (4.8-10.8) x10^3/uL RBC 2.86 L (4.70-6.10) 10^6/uL Hgb 8.8 L (14.0-18.0) g/dL Hct 29.2 L (42.0-52.0) % MCV 102.1 H (80.0-94.0) fL MCH 30.8 (27.0-31.0) pg MCHC 30.1 L (32.0-36.0) g/dL RDW 17.4 H (12.0-15.0) % Plt Count 101 L (130-450) 10^3/uL MPV 9.8 (7.4-11.4) fL Reticulocyte % (Auto) (0.5-2.3) % Neut # (Auto) 11.8 H (1.5-6.6) 10^3/uL Lymph # (Auto) 0.6 L (1.5-3.5) 10^3/uL [place] # (Auto) 0.8 (0.0-1.0) 10^3/uL Eos # (Auto) 0.0 (0.0-0.7) 10^3/uL Baso # (Auto) 0.0 (0.0-0.1) 10^3/uL Absolute Nucleated RBC 0.00 x10^3/uL Nucleated RBC % 0.0 /100WBC Absolute Retic (0.020-0.110) 10^6/uL PT 15.6 H (9.9-12.6) secs INR 1.4 H (0.8-1.2) Sodium 142 (135-145) mmol/L Potassium 4.0 (3.5-5.0) mmol/L Chloride 105 (101-111) mmol/L Carbon Dioxide 32 (21-32) mmol/L Anion Gap 5.0 L (6-13) BUN 35 H (6-20) mg/dL Creatinine 1.8 H (0.6-1.2) mg/dL Estimated GFR (MDRD) 36 L (>89) Glucose 108 H (70-100) mg/dL Lactic Acid (0.5-2.2) mmol/L Calcium 9.2 (8.5-10.3) mg/dL Iron (45-182) ug/dL TIBC (250-450) ug/dL % Saturation (20-50) % Transferrin (180-329) mg/dL Ferritin (23.9-336.2) ng/mL Total Bilirubin 1.2 H (0.2-1.0) mg/dL AST 37 (10-42) IU/L ALT 26 (10-60) IU/L Alkaline Phosphatase 119 (42-121) IU/L Lactate Dehydrogenase (91-225) IU/L Total Protein 6.6 L (6.7-8.2) g/dL Albumin 3.2 (3.2-5.5) g/dL Globulin 3.4 (2.1-4.2) g/dL Albumin/Globulin Ratio 0.9 L (1.0-2.2) Lipase 30 (22-51) U/L Vitamin B12 (180-914) pg/mL Nasal Adenovirus (PCR) Nasal B. parapertussis DNA (PCR) Nasal Coronavir 229E PCR Nasal Coronavir HKU1 PCR Nasal Coronavir NL63 PCR Nasal Coronavir OC43 PCR Nasal Enterovir/Rhinovir PCR Nasal Influenza B PCR Nasal Influenza A PCR Nasal Parainfluen 1 PCR Nasal Parainfluen 2 PCR Nasal Parainfluen 3 PCR Nasal Parainfluen 4 PCR Nasal RSV (PCR) Nasal B.pertussis DNA PCR Nasal C.pneumoniae (PCR) [place] Human Metapneumo PCR Nasal M.pneumoniae (PCR) Nasal SARS-CoV-2 (PCR) ABX Reporting Has patient been on IV antibiotics over the past 48 hours?: Yes Assessment/Plan - Problem List (1) Pneumonia Impression: His caregiver is suggesting possible aspiration pneumonia. She says she is never witnessed it but she always wonders since he eats his snacks in his room l ruth he did this morning. No antecedent history of fever, chills, cough, congestion. Nevertheless he had an elevated white cell count, hypoxia and bilateral infiltrates on admission. Today is Day #2/5 of abx. WBC is down. 94% on room air. Plan: Treat as community-acquired pneumonia, Rocephin Day #2/5 and azithromycin Day #2/3 Blood cultures have been done and I will adjust abx on basis of cultures if positive. Oxygen as needed DC for tomorrow if he is stable with O2. [facility] will [facility] to [facility] they will take him back. I will discuss w SW and with son, ALEXA. Qualifiers: Pneumonia type: due to unspecified organism Laterality: bilateral Lung location: unspecified part of lung Qualified Code(s): J18.9 - Pneumonia, unspecified organism (2) Acute on chronic renal insufficiency Conclusion/Plan: He is only been living on the cable for a year and a half or so. May be 2 years. Creatinine is 1.2 at baseline. Lips are dry, and Creatinine was 1.8 on admission. Today it is 1.7. Plan: Avoid nephrotoxic agents IV fluids, decrease or stop IV fluids once able to be awake and take p.o. (3) Dementia Conclusion/Plan: Longstanding. Followed by TOM [facility]ales [facility] the correction facility. He is on Paxil, clonazepam and that will be renewed. While he does get combative, and uncooperative, the nurse to take his care of him does not describe him ever getting violent. She says that he just likes to shake his fist at you. I had a long conversation with his son about advance care planning The night of admission. Please see separate note Qualifiers: Alzheimer's disease onset: unspecified onset Dementia severity: moderate Dementia behavioral or psychological symptom: with agitation (4) Hypertension Conclusion/Plan: He is on a beta-patric, Lasix for history of congestive heart failure, and his chronic atrial fibrillation. Those will be resumed except for lasix until his creat is at baseline. Qualifiers: Hypertension type: primary hypertension Qualified Code(s): I10 - Essential (primary) hypertension (5) Gout Conclusion/Plan: No evidence of an acute gout attack on exam. Will resume allopurinol. (6) Benign prostatic hyperplasia Conclusion/Plan: Resume Flomax. prn straight cath if it is required Qualifiers: Lower urinary tract symptom presence: symptoms present (7) Chronic atrial fibrillation Conclusion/Plan: Heart rate and BP continue to be stable and controlled. Already resumed his usual home medications which is the metoprolol as above and Coumadin. We will need to check daily INR since he is on antibiotics and Coumadin. (8) Anemia Conclusion/Plan: His hemoglobin has been dropping since 2019. He was 14.4, and was 13 in April 2020. 12.5 in September 2020 and now is 8.8. With his gradual decline over the last few months, superimposed on his dementia, could he have malnutrition as cause of anemia. We will need to find out his previous weights. His anemia panel shows profound iron deficiency anemia. Plan: Follow-up on stool for occult blood. This gentleman is on anticoagulation and he may have a slow loss of blood. Iron infusion today, start oral iron tomorrow. Add a multivitamin Qualifiers: Anemia type: unspecified type Qualified Code(s): D64.9 - Anemia, unspecified
[2022-01-22 08:11] LABS: BASOPHILS % (AUTO) 0.3 %; EOSINOPHILS % (AUTO) 0.3 %; HCT - HEMATOCRIT 33.1 % (42.0-52.0); HGB - HEMOGLOBIN 9.8 g/dL (14.0-18.0); LYMPHOCYTES # (AUTO) 0.6 10^3/uL (1.5-3.5); LYMPHOCYTES % (AUTO) 7.1 %; MEAN CORPUSCULAR HEMOGLOBIN 30.5 pg (27.0-31.0); MEAN CORPUSCULAR HGB CONC 29.6 g/dL (32.0-36.0); MEAN CORPUSCULAR VOLUME 103.1 fL (80.0-94.0); MEAN PLATELET VOLUME 10.2 fL (7.4-11.4); MONOCYTES # (AUTO) 0.4 10^3/uL (0.0-1.0); MONOCYTES % (AUTO) 4.5 %; NEUTROPHILS # (AUTO) 7.5 10^3/uL (1.5-6.6); NEUTROPHILS % (AUTO) 87.2 %; PLT - PLATELET COUNT 111 10^3/uL (130-450); RED BLOOD COUNT 3.21 10^6/uL (4.70-6.10); RED CELL DISTRIBUTION WIDTH 17.7 % (12.0-15.0); WHITE BLOOD COUNT 8.6 x10^3/uL (4.8-10.8)
[2022-01-22 08:20] LABS: CALCIUM 9.3 mg/dL (8.5-10.3); CREATININE 1.7 mg/dL (0.6-1.2); POTASSIUM 4.2 mmol/L (3.5-5.0)
[2022-01-22] MEDS: METOPROLOL TARTRATE 25 MG TABLET PO SCH (08:25)
[2022-01-22] MEDS: clonazePAM 0.5 MG TABLET PO SCH ×2 (08:26→22:15)
[2022-01-22] MEDS: allopurinoL 100 MG TABLET PO SCH (08:26)
[2022-01-22] MEDS: PARoxetine 10 MG TABLET PO SCH (08:26)
[2022-01-22] MEDS: MULTIVITAMIN TABLET PO SCH (08:26)
[2022-01-22] MEDS: ENOXAPARIN 40 MG/0.4 ML SYRINGE SUBQ SCH (08:26)
[2022-01-22] MEDS: TAMSULOSIN 0.4 MG CAPSULE PO SCH (08:26)
[2022-01-22] MEDS: SODIUM CHLORIDE FLUSH 0.9% 10 ML SYRINGE IVP SCH ×2 (08:26→17:37)
[2022-01-22] MEDS ORDERED: IRON DEXTRAN 1,500 MG in SODIUM CHLORIDE 0.9% 500 ML IV ONE (10:00)
[2022-01-22] MEDS ORDERED: cefTRIAXone 2 GM in SODIUM CHLORIDE 0.9% MINIBAG 100 ML IV SCH (16:00)
[2022-01-22] MEDS ORDERED: AZITHROMYCIN INJ 500 MG in SODIUM CHLORIDE 0.9% 250 ML IV SCH (17:00)
--- NOTE | 2022-01-22 17:02 | Discharge Plan ---
"Discharge Plan for SNF / [facility] - Discharge Plan And Transition Orders Problem Reviewed?: Yes Disposition: 01 Home, Self Care Condition: Stable Allergies and Adverse Reactions: Allergies Allergy/AdvReac Type Severity Reaction Status Date / Time Penicillins Allergy Rash Verified 08/26/21 13:10 Health Concerns: The patient has moderate to severe dementia and lives in a memory care unit. He has been having increasing falls and balance problems for the last couple of months. He used to be able to walk to the dining room with a walker and lately has been wheeled to the dining room in a wheelchair. He does have snacks in his room and in the [employer] field technician hours of admission he had some crackers at the bedside and his aide noted that he was pale, having difficulty breathing and they called EMS. He is hypoxic. He was found to have pneumonia and the caregiver at the memory care unit wonders if he may be aspirating. He has done well overnight and oxygen is back to normal on room air. He is awake, alert. You switched over to oral antibiotics Plan of Treatment: 1. Complete 2 more days of antibiotics with Levaquin. Usually I would use Augmentin but he is allergic to penicillin. 2. Family (2 sons) are to discuss transition to focus on comfort measures for down the road 3. Please have primary care provider see him in the next week for follow-up Care Goals: To get through this bout of pneumonia, and reassess his quality of life through careful conversations with sons so they can make decisions about goals of care for the future Assessment: This aleena gentleman is quite severely demented. Not following the conversation. - SNF / SENIOR CARE Transition Orders Admit to (Facility): [facility], [facility] Under the care of (Name): TOM Rosales Discharge Diagnosis: 1. Pneumonia 2. Moderate dementia with agitation 3. Hypertension 4. Acute on chronic renal insufficiency 5. History of gout 6. Benign prostatic hyperplasia 7. Chronic atrial fibrillation 8. Profound iron deficiency anemia Medicare Certification Statement: I certify that [facility] is medically necessary on a continuing basis for any of the conditions for which she/he is receiving care during hospitalization. Notify PCP of admission and forward orders to primary provider for signature. Other Notification Orders: Call PCP immediately if patient develops dyspnea, chest pain/tightness or edema. House Bowel Program: No Additional Bowel Program Orders: If no BM after 2 days, nurse may give M.O.M. 30ml PO PRN and/or ducolax Supp 1 FL and/or VAN 250mg P.O., and/or senna 1-2 tabs PO. On day 3 nurse may give repeat above order until residents constipation is resolved. Annual Influenza Vaccine (between Dec 11 and July 10): Yes Two-step PPD per [facility] [phone] or approved exception documents: Yes Lab Tests or X-ray Orders: CBC in 2 weeks to assess anemia Medication Orders: PLEASE REFER TO THE DISCHARGE MEDICATION LIST. - Medications New Prescriptions: Ferrous Gluconate 240 mg PO BID #60 tablet levoFLOXacin [Levaquin] 750 mg PO Q48H #9 tablet - Diet Type: Geriatric Texture: Regular Liquids: Thin May have monthly special meal: Yes - Therapies | Activity Rehabilitation Potential: Return to independent living Assistance Devices: Walker Follow Up: TOM Gonzalez"
[2022-01-22] MEDS ORDERED: ATORVASTATIN 40 MG TABLET PO SCH (21:00)
[2022-01-22] MEDS: traZODone 50 MG TABLET PO SCH (22:15)
[2022-01-23 07:34] VITALS: BP 169/64
[2022-01-23 07:34] LABS: BASOPHILS % (AUTO) 0.4 %; EOSINOPHILS % (AUTO) 0.5 %; HCT - HEMATOCRIT 32.8 % (42.0-52.0); HGB - HEMOGLOBIN 9.6 g/dL (14.0-18.0); LYMPHOCYTES # (AUTO) 1.5 10^3/uL (1.5-3.5); LYMPHOCYTES % (AUTO) 18.8 %; MEAN CORPUSCULAR HEMOGLOBIN 29.6 pg (27.0-31.0); MEAN CORPUSCULAR HGB CONC 29.3 g/dL (32.0-36.0); MEAN CORPUSCULAR VOLUME 101.2 fL (80.0-94.0); MEAN PLATELET VOLUME 11.3 fL (7.4-11.4); MONOCYTES # (AUTO) 0.6 10^3/uL (0.0-1.0); MONOCYTES % (AUTO) 7.4 %; NEUTROPHILS # (AUTO) 5.8 10^3/uL (1.5-6.6); NEUTROPHILS % (AUTO) 72.6 %; PLT - PLATELET COUNT 120 10^3/uL (130-450); RED BLOOD COUNT 3.24 10^6/uL (4.70-6.10); RED CELL DISTRIBUTION WIDTH 17.5 % (12.0-15.0); WHITE BLOOD COUNT 7.9 x10^3/uL (4.8-10.8)
[2022-01-23 07:45] LABS: CALCIUM 9.4 mg/dL (8.5-10.3); CREATININE 1.6 mg/dL (0.6-1.2); POTASSIUM 3.7 mmol/L (3.5-5.0)
[2022-01-23] MEDS: TAMSULOSIN 0.4 MG CAPSULE PO SCH (08:00)
[2022-01-23] MEDS ORDERED: FERROUS GLUCONATE 324 MG TABLET PO SCH (08:00)
[2022-01-23] MEDS: ENOXAPARIN 40 MG/0.4 ML SYRINGE SUBQ SCH (08:01)
[2022-01-23] MEDS: clonazePAM 0.5 MG TABLET PO SCH (08:01)
[2022-01-23] MEDS: allopurinoL 100 MG TABLET PO SCH (08:01)
[2022-01-23] MEDS: MULTIVITAMIN TABLET PO SCH (08:19)
[2022-01-23] MEDS: METOPROLOL TARTRATE 25 MG TABLET PO SCH (08:19)
[2022-01-23] MEDS: PARoxetine 10 MG TABLET PO SCH (08:20)
--- NOTE | 2022-01-23 08:24 | DISCHARGE SUMMARY ---
Discharge Summary Admit Date: 01/23/22 Discharge Date: 01/23/22 Discharging Provider: Harmony Scott MD Primary Care Provider: TOM Gonzalez Code Status: Do Not Attempt Resuscitation Condition at Discharge: Stable Discharge Disposition: 01 Home, Self Care - DIAGNOSES Discharge Diagnoses with Status of Each Condition: 1. Community-acquired pneumonia 2. Acute on chronic renal insufficiency 3. Dementia, moderate, with agitation 4. Hypertension 5. Gout 6. Benign prostatic hyperplasia 7. Chronic atrial fibrillation 8. Iron deficiency anemia 9. Resident in a residential facility - HPI History of Present Illness: 89-year-old gentleman with severe dementia and lives at [facility]. He is recently had a ground-level fall, and is getting weaker and weaker and was found to have low oxygen today. So ambulance was called and he was brought in by EMS. Because of his dementia, the history in the ER was obtained from his caregiver. He did get a COVID booster yesterday. 1 episode of emesis yesterday. In the emergency room his temperature was 37.2, heart rate 95, respiration 18, blood pressure 122/74 and he was 84% on room air. He was a muted elderly gentleman with a vacant stare. He was not in any respiratory distress but he had rhonchi in his left lung base. White cell count was elevated at 13.4. He is anemic to 8.8 g of hemoglobin. Electrolytes showed a creatinine of 1.8 and his baseline is 1.2. Chest x-ray showed bilateral airspace disease, right greater than left. We are being asked to admit him to the hospitalist service for pneumonia. I spoke to [facility], memory care unit. Brittney is one of his nurses on the unit. She says that she started working there over a year ago and he was already a full-time resident there. He is [place] and prefers to speak [place]i and has a very thick accent. Sometimes it is very hard to understand him. He is usually a silent man, not a huge talker". He gets occasionally combative. Last night he was combative and did not want to go to bed. He kept on trying to get out of bed and walk and was shaking his fist at her. Over the last 2 months he has been getting increasingly unsteady, forgets that he is off balance and has been falling more and more. He is declining in strength, and is now using a wheelchair to get him to the dining room. He used to be able to walk there. Brittney does not remember him having a cough, congestion. He does feed himself in the dining room but the son does provide snacks in the patient's room. He was eating crackers in the whale fisherman hours and had emesis at 4 AM. Brittney sometimes wonders if he is aspirating. The gentleman is incontinent of urine and stool. That is now new. In assessing him last night, before she left shift, he was the same status he always was. It was only when she got to work today that she found out that he had been taken in to the emergency room. - Past Medical History Cardiovascular: reports: Congestive heart failure, Hypertension, Atrial fibrillation Neuro: reports: CVA : reports: Other Musculoskeletal: reports: Gout Derm: reports: Other - Past Surgical History General: reports: Cholecystectomy Cardiovascular: reports: Pacemaker - CONSULTS | PROCEDURES Procedures: 1. Chest x-ray has right greater than left pneumonia with small pleural effusions. 2. Head CT without acute intracranial abnormality. Chronic volume loss. Possible posterior scalp contusion. 3. Blood cultures without growth after 2 days - HOSPITAL COURSE Hospital Course: On the first night the patient was somnolent, responsive to voice and touch by opening his eyes but nonverbal. By the next morning he was alert, cheerful, flirtatious. Normal speech pattern. No respiratory distress. By the evening of the second day he was combative, swinging at the nurses. But they were able to prompt him, and he responded to them positively when they put him in a wheelchair and wheeled him around the facility. He seemed to enjoy that. He did pull out his IV that night so he only received IV antibiotics for 2 nights. On the day of discharge he was alert, disoriented, but cooperative. We think he has a strong element of sundowning. But he was able to take his po medications. Temperature at discharge was 36.6. Heart rate 70. Blood pressure 169/64. Respirations 18. O2 sat 96% on room air. Awake, alert, disoriented. But able to make his wishes very clearly known in spite of his thick [place] accent. Lungs had diminished breath sounds at the bases but there is no respiratory distress, no coughing, and speaking did not increase his respiratory effort. He had a rate controlled regular rate and rhythm. Abdomen was soft, nontender. Bowel movement was yesterday. He is incontinent of urine. Has a pad/brief in place. He is very hard of hearing. Unstable with his balance and needs a two- person standby assist to make sure he does not lose his balance when he gets into the wheelchair to be wheeled around [facility]. He is discharged in stable condition. I am asking that [facility] provider [facility] reexamine his lungs in the next couple of days. He will finish antibiotic therapy with Levaquin every other day. Dose is reduced because of his kidney function. GFR is between 38 and 41. He had profound iron deficiency anemia at 14. He did receive an iron infusion while here and he is being discharged on ferrous gluconate. I did speak to his son about treatment goals. The son was torn about bringing his dad to the hospital in the first place. His dad has repeatedly told him that he is tired of this, does not want to live this way anymore, and the son was not aware that he could transition his dad to comfort measures only. He could still be kept at his memory care unit, treat him with pills. Any major illnesses can be treated at the memory care unit with medication by mouth. If the patient makes that he makes it, if he does not he does not need to leave to go to the hospital. He is already a DO NOT RESUSCITATE status. He said he will talk to his brother and possibly the memory care unit about this. Greater than 30 minutes was spent coordinating discharge. - ALLERGIES Allergies/Adverse Reactions: Allergies Allergy/AdvReac Type Severity Reaction Status Date / Time Penicillins Allergy Rash Verified 08/26/21 13:10 - MEDICATIONS Home Medications: Ambulatory Orders Medication Instructions Recorded Confirmed Dicyclomine [Bentyl] 10 mg PO BID 05/08/20 01/21/22 Famotidine [Acid-Pep] 40 mg PO QPM 05/08/20 01/21/22 Furosemide [Lasix] 60 mg PO DAILY 05/08/20 01/21/22 PARoxetine [Paxil] 20 mg PO DAILY 05/08/20 01/21/22 Tamsulosin [Flomax] 0.4 mg PO DAILY 05/08/20 01/21/22 allopurinoL [Zyloprim] 100 mg PO DAILY 05/08/20 01/21/22 clonazePAM [Clonazepam] 0.5 mg PO BID 05/08/20 01/21/22 Atorvastatin Calcium [Lipitor] 80 mg ORAL QPM 08/30/20 01/21/22 Metoprolol Tartrate [Lopressor] 12.5 mg PO DAILY 08/30/20 01/21/22 Acetaminophen [Tylenol] 500 mg PO BID 01/21/22 01/21/22 Acetaminophen [Tylenol] 500 mg PO Q4H PRN 01/21/22 01/21/22 Aspirin [Vazalore] 81 mg PO DAILY 01/21/22 01/21/22 Nystatin 1 applic TOP PRN PRN 01/21/22 01/21/22 Potassium Chloride 10 meq PO TID 01/21/22 01/21/22 QUEtiapine [SEROquel] 25 mg PO BID 01/21/22 01/21/22 Senna [Senokot] 8.6 mg PO BID 01/21/22 01/21/22 clonazePAM [KlonoPIN] 0.5 mg PO Q24H PRN 01/21/22 01/21/22 traZODone [Desyrel] 25 mg PO HS 01/21/22 01/21/22 Ferrous Gluconate 240 mg PO BID #60 tablet 01/22/22 levoFLOXacin [Levaquin] 750 mg PO Q48H #9 tablet 01/23/22 - LABS Result Diagrams: 01/23/22 07:23 01/23/22 07:23
[2022-01-23] MEDS ORDERED: levoFLOXacin 250 MG TABLET PO SCH (09:00)
== END 2022-01-23 12:50 | disposition home or self-care (01) | DRG 194 ==
LOC: EDUNIT# → ED 10:03 → MS2 13:25
PROVIDERS: ADMIT Specialist; ATTEND Specialist
DX: J18.9 Pneumonia, unspecified organism (principal); F03.90 Unspecified dementia, unspecified severity, without behavioral disturbance, psychotic disturbance, mood disturbance, and anxiety; I11.0 Hypertensive heart disease with heart failure; F03.911 Unspecified dementia, unspecified severity, with agitation; Z20.822 Contact with and (suspected) exposure to COVID-19; N17.9 Acute kidney failure, unspecified; I13.0 Hypertensive heart and chronic kidney disease with heart failure and stage 1 through stage 4 chronic kidney disease, or unspecified chronic kidney disease; I48.20 Chronic atrial fibrillation, unspecified; N18.9 Chronic kidney disease, unspecified; M10.9 Gout, unspecified; N40.0 Benign prostatic hyperplasia without lower urinary tract symptoms; D50.9 Iron deficiency anemia, unspecified; I50.9 Heart failure, unspecified; R32 Unspecified urinary incontinence; R15.9 Full incontinence of feces; Z66 Do not resuscitate; Z79.899 Other long term (current) drug therapy; Z81.8 Family history of other mental and behavioral disorders; Z86.73 Personal history of transient ischemic attack (TIA), and cerebral infarction without residual deficits; Z87.891 Personal history of nicotine dependence; Z88.0 Allergy status to penicillin; Z91.81 History of falling
CPT/HCPCS: 36415; 70450; 71045; 80048; 80053; 82607; 82728; 83540; 83605; 83615; 83690; 84466; 85025; 85045; 85610; 87040; 87633; 87635; 96365; 96367; 99284; 99285; A9270; J1650; J1750

== ENCOUNTER 2022-01-23 12:46 | Outpatient (CLI) | payer MEDICARE | END 2022-01-23 12:47 | disposition home or self-care (01) | LOC: EMS 12:46 | PROVIDERS: ATTEND Specialist | DX: F03.90 Unspecified dementia, unspecified severity, without behavioral disturbance, psychotic disturbance, mood disturbance, and anxiety (principal) | CPT/HCPCS: A0425; A0428 ==